=== PATIENT | male | born 1950 | race Caucasian/White ===

== ENCOUNTER 2024-02-03 12:34 | Outpatient (REF) | payer MEDICARE, SELFPAY | END 2024-02-03 12:35 | disposition home or self-care (01) | LOC: HO.BBR 12:34 | PROVIDERS: PCP Internal Medicine; Visit Provider Internal Medicine Gastroenterology | DX: Z13.89 Encounter for screening for other disorder (principal) ==

== ENCOUNTER 2024-04-30 13:21 | Outpatient (REF) | payer MEDICARE, SELFPAY | END 2024-04-30 13:22 | disposition home or self-care (01) | LOC: HO.BBR 13:21 | PROVIDERS: PCP Internal Medicine; Visit Provider Internal Medicine Gastroenterology | DX: Z13.89 Encounter for screening for other disorder (principal) ==

== ENCOUNTER 2024-07-31 14:26 | Outpatient (REF) | payer MEDICARE, SELFPAY | END 2024-07-31 14:27 | disposition home or self-care (01) | LOC: HO.BBR 14:26 | PROVIDERS: PCP Internal Medicine; Visit Provider Internal Medicine Gastroenterology | DX: Z13.89 Encounter for screening for other disorder (principal) ==

== ENCOUNTER 2024-10-28 13:00 | Outpatient (AMB) | payer MEDICARE, SELFPAY ==
--- NOTE | 2024-10-28 13:28 | MHC.OFFWIV ---
Intake Vital Signs 10/28/24 13:30 Weight 190 lb BP 130/82 Blood Pressure Location Rt brachial Position Sitting Pulse 66 Pulse Source Pulse Oximeter Pulse Oximetry (%) 98 Oxygen Delivery Method Room Air Intake Visit Reasons: [employer] SOB & abdominal pain Intake Note: Patient here for SOB that has been present for about 1 month Patient Tobacco Use Status: Never used Tobacco Allergies chlorpromazine [From THORAZINE] Allergy (Unknown, Unverified 10/28/24 13:29) UNKNOWN Do you need a note to return to daycare/school/sports/work: No HPI HPI Comments History of Present Illness Details History of Present Illness - The patient is a 73-year-old male presenting with shortness of breath and abdominal enlargement. 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 - He reports persistent abdominal fullness and bloating independent of food intake, with no prior drainage/paracentesis procedures. - The large umbilical hernia, while not painful, coincides with significant discomfort and an abdominal distension visible to an observer. - No past instances of paracentesis for fluid drainage have been reported. -Denies any fevers or respiratory symptoms. Physical Exam General: Cooperative, healthy appearing, comfortable, no acute distress and well developed Orientation: Patient oriented x3 Limitations: No limitations Head: Normal to inspection Ears: Hearing grossly normal bilaterally Nose: Normal external nose present Face and sinus: Normal facial exam Eyes: Appearance normal, both eyes and all related structures Neck: Normal visual inspection and Yes full ROM Respiratory: Normal respiratory effort and able to speak in complete sentences. Clear to auscultation bilaterally Cardiovascular: Regular rate and rhythm. Normal S1 and S2 GI: see below Skin: No rashes or lesions noted Neuro: Patient oriented x3 Extremities: Normal to inspection [facility] Social History Patient Tobacco Use Status: Never used Tobacco Review of Systems Const All systems reviewed & are unremarkable except as noted in HPI and below Physical Exam Vital Signs: Last Vital Signs Pulse 66 10/28/24 13:30 BP 130/82 10/28/24 13:30 Pulse Ox 98 10/28/24 13:30 Oxygen Delivery Method Room Air 10/28/24 13:30 GI Other: large umbilical hernia, non TTP Inspection: Yes distended Palpation (GI): Ascites present Percussion: Yes Fluid wave present Assessment & Plan Assessment & Plan (1) Abdominal ascites: Code(s): R18.8 - Other ascites Qualifiers: Ascites type: other type Qualified Code(s): R18.8 - Other ascites Plan: VSS, pt well appearing. PE remarkable for clear lungs, large abdomen with + fluid wave & large umbilical hernia which is non ttp. Paracentesis is likely neede to manage the patient's symptomatic ascites and alleviate the associated shortness of breath due to increased abdominal pressure on the thoracic cavity. Immediate evaluation in an emergency department setting is recommended to ensure safe and effective fluid drainage, with measures in place to assess for possible infection and address complications such as variations in blood pressure through albumin administration. Explained all of this to the patient and his . Called [facility] ED with expect. His will drive him to the ED. Patient was informed and verbally consented to the use of an ambient scribe for clinic note documentation during this visit. Coding Level of Care Code New Pt Level 5 (51234) Diagnoses Other ascites R18.8 Ascites type: other type
[2024-10-28 13:30] VITALS: BP 130/82; PULSE 66; O2SAT 98
--- OUTSIDE RECORDS SUMMARY | 2024-10-28 14:20 | XMS_ITS | Encounter Summary ---
Author Organization [facility] Address [address] [place] [address] Care Team Providers Care Sanitation Supervisor Name Role Phone Lou Jolley MD Primary Care Provider [phone] Encounter Details Date Type Department Care Team (Late Contact Info) Description 10/12/2024 Telephone Gastroenterology - [address] [facility] [address] [place] [phone] Katie Baker PA [address] [place] [address] Social History Tobacco Use Types Packs/Day Years Used Date Smoking Tobacco: Never Alcohol Use Standard Drinks/Week Comments Not Currently 0 (1 standard drink = 0.6 oz pur e alcohol) Sex and Gender Information Value Date Recorded Sex Assigned at Male 10/09/2024 1:17 PM EST Legal Sex Male 11:33 PM EST Gender Identity Male 10/09/2024 1:17 PM EST Sexual Orientation Choose not to disclose 2024 1:17 PM EST documented as of this encounter Progress Notes * PIERRE Trinh - 10/12/2024 4:30 PM EST Spoke with pt. Labs stable. Just waiting on TSH result. Pt has CT booked as well as colon/egd. documented in this encounter Plan of Treatment Upcoming Encounters Date Type Department Care Team (Late Contact Info) Description 10/30/2024 9:00 AM EST Appointment [facility] [address] Scan [address] [place] [address] documented as of this encounter Visit Diagnoses Not on filedocumented in this encounter Care Teams Sanitation Supervisor Relationship Specialty Start Date End Date Lou Jolley MD [address] [address] PCP - General Internal Medicine 09/24/24 documented as of this encounter
--- OUTSIDE RECORDS SUMMARY | 2024-10-28 14:20 | XMS_ITS | Continuity of Care Document ---
Author Name [facility] Organization [facility] Care Team Providers Care Design Agent Name Role Phone [facility] Unavailable Unavailable Problems Combined list of problems from Department of [facility] and [facility] facilities. It does not include entries that were removed or entered in error. Problem Status Onset Date Problem Type Date of Resolution Comments Source Anxiety ([facility] [id number]) Active Condition JUDA Benign enlargement of prostate Active Condition JUDA Cataract Active Condition Jun 14 Entered By: JIMI MANNING Comment: s/p extraction JUDA Cirrhosis of liver Active Condition [facility] Essential hypertension Active Condition JUDA Familial hemochromatosis Active Condition [facility] GERD - Gastro-Esophageal Reflux Disease ([facility] [id number]) Active Condition JUDA Hearing loss Active Condition [facility] Medications Combined list of outpatient medications from Department of Defense and [facility] facilities.Medications provided include 1) outpatient medications from the last 15 months, and 2) patient-reported medications. Medication Details Route Status Patient Instructions Prescription Expires Prescription Number Last Dispense Date Ordering Provider Order Date Order Qty Source AMLODIPINE BESYLATE 2.5MG TAB TAKE ONE TABLET BY MOUTH ONCE DAILY ORAL ACTIVE BRENDA MANNING 2021 [place] CHOLECALCIF SANTANA 50MCG (2,000UNIT) TAB TAKE ONE TABLET BY MOUTH ONCE DAILY ORAL ACTIVE BRENDA MANNING 2021 [place] FISH OIL (NO NEW STARTS - ON BACKORDER) CAP,ORAL TAKE 1200MG BY MOUTH ONCE DAILY ORAL ACTIVE BRENDA MANNING 2021 [place] LORAZEPAM 0.5MG TAB TAKE ONE TABLET BY MOUTH PRN ORAL ACTIVE BRENDA MANNING 2021 [place] MULTIVITAMI NS W/MINERALS TAB TAKE ONE TABLET BY MOUTH ONCE DAILY ORAL ACTIVE BRENDA MANNING 2021 [place] NADOLOL 40MG TAB TAKE ONE TABLET BY MOUTH ONCE DAILY ORAL ACTIVE BRENDA MANNING 09/29/ 2022 [place] OMEPRAZOLE 20MG CAP,EC TAKE 1 CAPSULE BY MOUTH EVERY MORNING 30 MINUTES BEFORE BREAKFAS T ORAL ACTIVE BRENDA MANNING 2021 [place] OTHER CAP/TAB TAKE ALLERGY RELIEF BY MOUTH ONCE DAILY NEEDED ORAL ACTIVE BRENDA MANNING 2021 [place] TAMSULOSIN HCL 0.4MG CAP TAKE 1 CAPSULE BY MOUTH ONCE DAILY ORAL ACTIVE BRENDA MANNING 2021 [place] TROSPIUM CL 20MG TAB TAKE THREE TABLETS BY MOUTH ONCE DAILY ORAL ACTIVE BRENDA MANNING 2021 IELD Allergies, Adverse Reactions, Alerts Combined list of allergies from Department of Defense and Veterans Affairs facilities. It does not include entries that were removed or entered in error. Substance Category Reaction Severity Reaction type Status Date Reported Comments Source CHLORPROMAZI NE Propensity to adverse reactions to drug (finding) Tachycardia active [facility] [place] [facility] Immunizations Combined list of available immunizations from the Department of Defense and Veterans Affairs facilities. Immunization Series Date Given Administered By Site Reaction Lot Number CVX Code Drug Restaurant Bartender Status Comments Source INFLUENZA, UNSPECIFIED FORMULATION 2021 88 complet ed [facility] COVID-19 (MODERNA), MRNA, LNP-S, PF, 100 MCG/0.5ML DOSE OR 50 MCG/0.25ML DOSE 3 2021 207 complet ed [facility] ZOSTER RECOMBINANT 2 2021 187 complet ed Records [facility] scan[facility] COVID-19 (MODERNA), MRNA, LNP-S, PF, 100 MCG/0.5ML DOSE OR 50 MCG/0.25ML DOSE 3 2020 207 complet ed [facility] COVID-19 (MODERNA), MRNA, LNP-S, PF, 100 MCG/0.5ML DOSE OR 50 MCG/0.25ML DOSE 2 2020 207 complet ed [facility] COVID-19 (MODERNA), MRNA, LNP-S, PF, 100 MCG/0.5ML DOSE OR 50 MCG/0.25ML DOSE 1 2020 207 complet ed [facility] [place] [facility] PNEUMOCOCCAL CONJUGATE PCV 13 2019 133 complet ed sent to scan through [facility] [place] [facility] TDAP 2014 115 complet ed Records sent to scan through [facility] [place] [facility] ZOSTER RECOMBINANT 1 2014 187 complet ed Records sent to scan via [facility] [place] [facility] Social History Combined list of available smoking, tobacco, and other social history from Department of Defense and Veterans Affairs facilities. Social History Type Response Date Comment Sourc e Tobacco smoking status [facility]-TOBACCO NEVER USED 06/11/2022 [facility] [place] [facility] Advance Directives List of completed, amended, or rescinded Advance Directives on record at Department of Veterans Affairs facilities. An actual copy of the Directive is not included. Date Advance Directive Provider Source 06/08/2022 ADVANCE DIRECTIVE JUAN C MUÑOZ [facility]
--- OUTSIDE RECORDS SUMMARY | 2024-10-28 14:20 | XMS_ITS | Encounter Summary ---
Author Organization [facility] Address [address] [place] [address] Care Team Providers Care Academic Hospitalist Name Role Phone Lou Jolley MD Primary Care Provider [phone] Reason for Visit * Reason Comments Nausea Umbilical hernia pt states cause nausea vomiting Vomiting Encounter Details Date Type Department Care Team ([facility] st Contact Info) Description 09/28/2024 2:20 PM EST Office Visit Gastroenterology - [address] [facility] [address] [place] [address] Katie Baker PA [address] [place] [address] Umbilical hernia without obstruction and without gangrene (Primary Dx) Social History Tobacco Use Types Packs/Day Years Used Date Smoking Tobacco: Never Tobacco Cessation:Counseling Given: Not Answered Alcohol Use Standard Drinks/Week Comments Not Currently 0 (1 standard drink = 0.6 oz pur e alcohol) Sex and Gender Information Value Date Recorded Sex Assigned at Male 10/09/2024 1:17 PM EST Legal Sex Male 11:33 PM EST Gender Identity Male 10/09/2024 1:17 PM EST Sexual Orientation Choose not to disclose 2024 1:17 PM EST documented as of this encounter Last Filed Vital Signs Vital Sign Reading Time Taken Comments Blood Pressure - - Pulse - - Temperature - - Respiratory Rate - - Oxygen Saturation - - Inhaled Oxygen Concentration - - Weight 86.2 kg (190 lb) 09/28/2024 2:10 PM EST Height 182.9 cm (6') 09/28/2024 2:10 PM EST Body Mass Index 25.77 09/28/2024 2:10 PM EST documented in this encounter Progress Notes * PIERRE Trinh - 09/28/2024 2:20 PM EST Subjective Last Colononscopy/EGD: EGD 06/2024 - grade 1 varices in lower third of esoph (1 yr); Colon/EGD 10/2019 - 2 cords of 1-2+ varices in lower third of esoph, port hypertensive gastropathy; TA x2, tics throughout (5 yrs) HPI: Ryder Thornton is a 73 y.o. old male who presents to the gastroenterology department today for his umbilical hernia. The the umbilical hernia seems to be getting bigger. It is not painful. He has been exercising at the gym more. It is reducible. He had a stomachache last week that onlylasted 1 day. He went to the bathroom more often that day although he did not have diarrhea. He wonders if it was a virus. His weight is stable. He has ongoing issues with nausea. It is mostly in themorning and only lasts an hour or 2. He denied any rectal bleeding, melena, lower extremity edema, fevers or chills. He had his routine abdominal ultrasound in May due to his history of cirrhosi s. It was stable. He also had his surveillance upper endoscopy with Dr. Carlson in June due to his history of varices. Grade 1 varices were found in the lower esophagus. He had mild portal mild portal hypertensive gastropathy findings. He will be due to follow up with Dr. Carlson in December. He was here today just to discuss the hernia. Review of Systems Constitutional: Negative. Respiratory: Negative. Cardiovascular: Negative. Gastrointestinal: Positive for nausea. Umbilical hernia Genitourinary: Negative. 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 PAST SURGICAL HISTORY: No past surgical history on file. SOCIAL HISTORY: Social History Tobacco Use Smoking status: Never Smokeless tobacco: Not on file Substance Use Topics Alcohol use: Not Currently FAMILY HISTORY: No family history on file. ACTIVE MEDICATIONS: Current Outpatient Medications Medication Sig Dispense Refill amLODIPine (NORVASC) 2.5 mg tablet Take 1 tablet (2.5 mg total) by mouth 1 (one) time each day. atorvastatin (LIPITOR) 20 mg tablet Take 1 tablet (20 mg total) by mouth 1 (one) time each day. cholecalciferol (VITAMIN D-3) 25 mcg (1,000 unit) tablet Take 1 tablet (1,000 Units total) by mouth1 (one) time each day. meloxicam (MOBIC) 7.5 mg tablet Take 1 tablet (7.5 mg total) by mouth 1 (one) time each day. nadoloL (CORGARD) 40 mg tablet Take 1 tablet (40 mg total) by mouth 1 (one) time each day. omeprazole (PriLOSEC) [address] capsule tamsulosin (FLOMAX) 0.4 mg 24 hr capsule Take 1 capsule (0.4 mg total) by mouth 1 (one) time each day. trospium 60 mg capsule,extended release 24hr Take 1 capsule (60 mg total) by mouth 1 (one) time each day. No current facility-administered medications for this visit. ALLERGIES: Allergies Allergen Reactions Clomipramine Physical Exam Constitutional: Appearance: Normal appearance. HENT: Head: Normocephalic. Cardiovascular: Rate and Rhythm: Normal rate and regular rhythm. Pulmonary: Effort: Pulmonary effort is normal. Breath sounds: Normal breath sounds. Abdominal: General: Bowel sounds are normal. There is no distension. Palpations: Abdomen is soft. There is no mass. Tenderness: There is no abdominal tenderness. There is no guarding or rebound. Comments: Non-tender, Medium sized reducible umbilical hernia. Musculoskeletal: Right lower leg: No edema. Left lower leg: No edema. Skin: General: Skin is warm. Neurological: Mental Status: He is alert and oriented to person, place, and time. Psychiatric: Mood and Affect: Mood normal. Behavior: Behavior normal. IMPRESSION: 1. Umbilical hernia without obstruction and without gangrene Assessment/Plan Assessment & Plan Umbilical hernia without obstruction and without gangrene Hold on surgical consult as hernia is reducible and not painful. Pt agrees. Avoid heavy lifting. Try a truss, especially at the gym. Routine f/u for cirrhosis due in December U/S, labs, EGD up to date. PIERRE Trinh 4:13 PM EST documented in this encounter Plan of Treatment Upcoming Encounters Date Type Department Care Team (Late st Contact Info) Description 10/30/2024 9:00 AM EST Appointment [facility] CT Scan [address] [place] [address] documented as of this encounter Visit Diagnoses Diagnosis Umbilical hernia without obstruction and without gangrene- Primary documented in this encounter Historical Medications * This list may reflect changes made after this encounter. cholecalciferol (VITAMIN D-3) 25 mcg (1,000 unit) tablet Take 1 tablet (1,000 Units total) by mouth 1 (one) time each day. amLODIPine (NORVASC) 2.5 mg tablet Take 1 tablet (2.5 mg total) by mouth 1 (one) time each day. 09/05/2024 atorvastatin (LIPITOR) 20 mg tablet Take 1 tablet (20 mg total) by mouth 1 (one) time each day. 03/30/2024 meloxicam (MOBIC) 7.5 mg tablet Take 1 tablet (7.5 mg total) by mouth 1 (one) time each day. 09/15/2024 nadoloL (CORGARD) 40 mg tablet Take 1 tablet (40 mg total) by mouth 1 (one) time each day. 07/27/2024 tamsulosin (FLOMAX) 0.4 mg 24 hr capsule Take 1 capsule (0.4 mg total) by mouth 1 (one) time each day. 08/18/2024 trospium 60 mg capsule,extended release 24hr Take 1 capsule (60 mg total) by mouth 1 (one) time each day. 08/02/2024 omeprazole (PriLOSEC) [address] capsule 09/24/2024 10/23/2024 added in this encounter Care Teams Academic Hospitalist Relationship Specialty Start Date End Date Lou Jolley MD [address] [facility] [address] [place] [id number] PCP - General Internal Medicine 09/24/24 documented as of this encounter
--- OUTSIDE RECORDS SUMMARY | 2024-10-28 14:20 | XMS_ITS | Encounter Summary ---
Author Organization [facility] Address [address] [place] [address] Care Team Providers Care Machine Riveter Name Role Phone Lou Jolley MD Primary Care Provider [phone] Reason for Referral * Imaging (Routine) - Pending Review Specialty Diagnoses / Procedures Referred By Ubaldo schafer Referred To Contact Radiology Diagnoses Nausea and vomiting, unspecified vomiting type Umbilical hernia without obstruction and without gangrene Lack of appetite Other cirrhosis of liver (CMS/HCC) Hereditary hemochromatosis (CMS/HCC) Procedures CT Abdomen Pelvis w Contrast Katie Baker PA [address] [address] Phone: tel: fax: [address] [address] Phone: tel: Referral ID Status Reason Start Date Expiration Date V isits Requested Visits Authorized [id number] Pending Review 10/05/2024 10/05/2025 1 1 Encounter Details Date Type Department Care Team (Late st Contact Info) Description 10/05/2024 Telephone Gastroenterology - [address] [phone] Katie Baker PA [address] [address] Social History Tobacco Use Types Packs/Day Years [...] encounter Progress Notes * PIERRE Trinh - 10/05/2024 8:19 AM EST I called pt after his niece reached out to me (personal cell phone) regarding pt's appointment lastweek. She feels he was not forthcoming with how badly he has been feeling and blamed symptoms on the umbilical hernia. Per pt, nausea in am and intermittent dry heaves. Poor appetite. Wt stable per review of chart at least to 03/2023. 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 No bleeding,melena. Pt due for colonoscopy now. I realized that after his last visit. He is due for hepatoma screening in December. Will arrange labs now and order abd/pelvic CT due to symptoms and to evaluate hernia. Will schedule colon repeat EGD. Colonoscopy and EGD reviewed with patient. Risks discussed including bleeding perforation and missed lesions. There is always a chance surgery or transfusion could be required. Prep discussed with patient. Risks of anesthesia reviewed. Patient advised will need a ride home, not to have liquids for at least 3 hours prior to the procedure. documented in this encounter Plan of Treatment Upcoming Encounters Date Type Department Care Team (Late st Contact Info) Description 10/30/2024 9:00 AM EST Appointment [facility] CT Scan [address] [place] [address] Scheduled Orders Name Type Priority Associated Diagnoses Orde r Schedule CT Abdomen Pelvis w Contrast Imaging Routine Nausea and vomiting, unspecified vomiting type Umbilical hernia without obstruction and without gangrene Lack of appetite Other cirrhosis of liver (CMS/HCC) Hereditary hemochromatosis (CMS/HCC) 1 Occurrences starting 10/05/2024 until 12/03/2024 documented as of this encounter Results * Prothrombin time with INR (10/12/2024 11:16 AM EST) [facility] Protime 13.6 10.6 - 13.9 sec LAB COAGULATION METHOD 10/12/2024 1:11 PM EST [facility] INR 1.1 LAB COAGULATION METHOD 10/12/2024 1:11 PM EST [facility] Blood Venous blood specimen / Unknown Venipuncture / Unknown 10/12/2024 11:16 AM EST 10/12/2024 12:53 PM EST Katie JAY LAB BLOOD ORDERABLES Final R esult Performing Organization Address City/[facility]/ZIP Co de Phone Number [facility] [address] [place] [address], [place] [phone] * Alpha fetoprotein tumor marker (10/12/2024 11:16 AM EST) [facility] AFP <2.5 0.0 - 8.0 ng/mL LAB CHEMISTRY METHOD 10/12/2024 3:56 PM EST [facility] Blood Venous blood specimen / Unknown Venipuncture / Unknown 10/12/2024 11:16 AM EST 10/12/2024 12:50 PM EST Narrative [facility] - 10/12/2024 3:56 PM EST The Siemens Advia Centaur Chemiluminescent Immunoassay is used. Results obtained with different assay methods or kits cannot be used interchangeably. Results cannot be interpreted as absolute evidence of the presence or absence of malignant disease. Katie JAY LAB BLOOD ORDERABLES Final R esult [facility] [address] [place] [address], [place] [phone] * Thyroid stimulating immunoglobulin (10/12/2024 11:16 AM EST) [facility] Thyroid Stimulating Immunoglobulin <0.10 <0.10 IU/L 10/15/2024 3:22 PM EST [facility] Comment: Thyroid stimulating immunoglobulins (TSI) concentrations greater than or equal to (>=) 0.55 IU/L have a clinical sensitivity of at least 98.6%, and a clinical specificity of at least 98.5%, for the differential diagnosis of Graves' Disease. TSI concentrations for patients with other thyroid or autoimmune diseases range from 0.11 to 0.39 IU/L. Test performed at [facility], [address] , [place], [place] ??[address] ? [phone] Carolynn Mckeon MD, PhD - [employer] Blood Venous blood specimen / Unknown Venipuncture / Unknown 10/12/2024 11:16 AM EST 10/12/2024 12:50 PM EST Katie JAY LAB BLOOD ORDERABLES Final R esult [facility] [address] [place] [address] * Amylase (10/12/2024 11:16 AM EST) Amylase 31 25 - 115 unit/L LAB CHEMISTRY METHOD 10/12/2024 3:47 PM EST [facility] Blood Venous blood specimen / Unknown Venipuncture / Unknown 10/12/2024 11:16 AM EST 10/12/2024 12:50 PM EST Katie JAY LAB BLOOD ORDERABLES Final R esult [facility] [address] [place] [address], [place] [phone] * Lipase (10/12/2024 11:16 AM EST) Lipase 24 13 - 75 unit/L LAB CHEMISTRY METHOD 10/12/2024 3:47 PM EST [facility] Blood Venous blood specimen / Unknown Venipuncture / Unknown 10/12/2024 11:16 AM EST 10/12/2024 12:50 PM EST us Katie JAY LAB BLOOD ORDERABLES Final R esult [facility] [address] [place] [address], * (ABNORMAL) Comprehensive metabolic panel (10/12/2024 11:16 AM EST) Sodium 139 133 - 145 mmol/L LAB CHEMISTRY METHOD 10/12/2024 3:48 PM [facility] Potassium 3.5 3.5 - 5.5 mmol/L LAB CHEMISTRY METHOD 10/12/2024 3:48 PM [facility] Chloride 103 96 - 110 mmol/L LAB CHEMISTRY METHOD 10/12/2024 3:48 PM [facility] CO2 31 21 - 32 mmol/L LAB CHEMISTRY METHOD 10/12/2024 3:48 PM [facility] Anion Gap 5 3 - 11 LAB CHEMISTRY METHOD 10/12/2024 3:48 PM [facility] Glucose 117(H) 70 - 100 mg/dL LAB CHEMISTRY METHOD 10/12/2024 3:48 PM [facility] BUN 11 5 - 25 mg/dL LAB CHEMISTRY METHOD 10/12/2024 3:48 PM [facility] Creatinine 0.77 0.70 - 1.30 mg/dL LAB CHEMISTRY METHOD 10/12/2024 3:48 PM [facility] eGFR 96 >=60 mL/min/1. 73m2 LAB CHEMISTRY METHOD 10/12/2024 3:48 PM [facility] Comment:Calculation based on the??Chronic Kidney Disease Epidemiology Collaboration (CKD-EPI) equation refit??without adjustment for race. BUN/Creatinine Ratio 14.3 LAB CHEMISTRY METHOD 10/12/2024 3:48 PM [facility] Calcium 8.8 8.5 - 10.5 mg/dL LAB CHEMISTRY METHOD 10/12/2024 3:48 PM [facility] AST (SGOT) 21 10 - 42 unit/L LAB CHEMISTRY METHOD 10/12/2024 3:48 PM [facility] ALT (SGPT) 21 10 - 60 unit/L LAB CHEMISTRY METHOD 10/12/2024 3:48 PM [facility] Alkaline Phosphatase 130(H) 42 - 121 unit/L LAB CHEMISTRY METHOD 10/12/2024 3:48 PM [facility] Total Protein 7.3 6.0 - 8.0 g/dL LAB CHEMISTRY METHOD 10/12/2024 3:48 PM [facility] Albumin 3.0(L) 3.2 - 5.0 g/dL LAB CHEMISTRY METHOD 10/12/2024 3:48 PM [facility] Total Bilirubin 0.8 0.0 - 1.4 mg/dL LAB CHEMISTRY METHOD 10/12/2024 3:48 PM [facility] Blood Venous blood specimen / Unknown Venipuncture / Unknown 10/12/2024 11:16 AM EST 10/12/2024 12:50 PM EST Katie JAY LAB BLOOD ORDERABLES Final R esult [facility] [address] [place] [address], documented in this encounter Visit Diagnoses Diagnosis Nausea and vomiting, unspecified vomiting type- Primary Umbilical hernia without obstruction and without gangrene Lack of appetite Anorexia Other cirrhosis of liver (CMS/HCC) Hereditary hemochromatosis (CMS/HCC) Hereditary hemochromatosis documented in this encounter Orders Lab Orders Without Results Count Last Ordered D ate First Ordered Date HEPATIC FUNCTION PANEL 1 10/05/2024 IRON WITH TIBC AND FERRITIN 1 10/05/2024 documented in this encounter Care Teams Machine Riveter Relationship Specialty Start Date End Date Lou Jolley MD [address] [place] [address] PCP - General Internal Medicine 09/24/24 documented as of this encounter
--- OUTSIDE RECORDS SUMMARY | 2024-10-28 14:20 | XMS_ITS | Encounter Summary ---
Author Organization [facility] Address [address] [place] [address] Care Team Providers Care Scrap Wheeler Name Role Phone Lou Jolley MD Primary Care Provider [phone] Reason for Referral * Hospital - Outpatient (Routine) - Closed Specialty Diagnoses / Procedures Referred By Contac t Referred To Contact Gastroenterology Diagnoses Nausea and vomiting, unspecified vomiting type History of colon polyps Hx of esophageal varices Procedures COLONOSCOPY Anesthesia - MAC; [facility] Wilbert Carlson MD [address] [address] Phone: tel: fax: [facility] Endoscopy [address] [place] [address] Phone: tel: Referral ID Status Reason Start Date Expiration Date Visits Re quested Visits Authorized [id number] Closed 10/05/2024 10/05/2025 1 1 * Hospital - Outpatient (Routine) - Closed Specialty Diagnoses / Procedures Referred By Contac t Referred To Contact Gastroenterology Diagnoses Nausea and vomiting, unspecified vomiting type History of colon polyps Hx of esophageal varices Procedures EGD Anesthesia - MAC; [facility] Wilbert Carlson MD [address] [address] Phone: tel: fax: [facility] Endoscopy [address] [place] [address] Phone: tel: Referral ID Status Reason Start Date Expiration Date Visits Re quested Visits Authorized [id number] Closed 10/05/2024 10/05/2025 1 1 Reason for Visit * Hospital - Outpatient (Routine) - Closed Specialty Diagnoses / Procedures Referred By Contac t Referred To Contact Gastroenterology Diagnoses Nausea and vomiting, unspecified vomiting type History of colon polyps Hx of esophageal varices Procedures COLONOSCOPY Anesthesia - MAC; [facility] Wilbert Carlson MD [address] [address] Phone: tel: fax: [facility] Endoscopy [address] [place] [address] Phone: tel: Referral ID Status Reason Start Date Expiration Date Visits Re quested Visits Authorized [id number] Closed 10/05/2024 10/05/2025 1 1 Encounter Details Date Type Department Care Team (Latest Contact Info) Description 10/19/2024 9:49 AM EST - 10/19/2024 11:59 PM EST Hospital Encounter [facility] Endoscopy [address] [place] [phone] Wilbert Carlson MD [address] [address] Boby Villalba, [address] [address] Nausea and vomiting, unspecified vomiting type; History of colon polyps; Hx of esophageal varices Discharge Disposition: Home or Self Care Social History Tobacco Use Types Packs/Day Years Used Date Smoking Tobacco: Never Alcohol Use Standard Drinks/Week Comments Not Currently 0 (1 standard drink = 0.6 oz pur e alcohol) Interpersonal Safety Answer Date Record ed Physical Abuse 10/19/2024 Verbal Abuse 10/19/2024 Sex and Gender Information Value Date Recorded Sex Assigned at Male 10/09/2024 1:17 PM EST Legal Sex Male 11:33 PM EST Gender Identity Male 10/09/2024 1:17 PM EST Sexual Orientation Choose not to disclose 2024 1:17 PM EST documented as of this encounter Last Filed Vital Signs Vital Sign Reading Time Taken Comments Blood Pressure 130/87 10/19/2024 11:41 AM EST Pulse 67 10/19/2024 11:41 AM EST Temperature 36.4 ??C (97.6 ??F) 10/19/2024 11:[address] Respiratory Rate 18 10/19/2024 11:41 AM EST Oxygen Saturation 96% 10/19/2024 11:41 AM EST Inhaled Oxygen Concentration - - Weight 86.2 kg (190 lb) 10/19/2024 10:15 AM EST Height 182.9 cm (6') 10/19/2024 10:15 AM EST Body Mass Index 25.77 10/19/2024 10:15 AM EST documented in this encounter Discharge Instructions * Attachments The following attachments cannot be sent through Care Everywhere. * EGD (Upper Endoscopy): Post-op (Maldivian) * Colon Polyps (Maldivian) * Diverticulosis (Maldivian) documented in this encounter Medications at Time of Discharge amLODIPine (NORVASC) 2.5 mg tablet Take 1 tablet (2.5 mg total) by mouth 1 (one) time each day. 09/05/2024 atorvastatin (LIPITOR) 20 mg tablet Take 1 tablet (20 mg total) by mouth 1 (one) time each day. 03/30/2024 cholecalciferol (VITAMIN D-3) 25 mcg (1,000 unit) tablet Take 1 tablet (1,000 Units total) by mouth 1 (one) time each day. meloxicam (MOBIC) 7.5 [...] (PriLOSEC) [address] capsule 09/24/2024 10/23/2024 documented as of this encounter Discharge Disposition Disposition Code Departure Means Destination Home or Self Care documented in this encounter Progress Notes * Reynaldo Lawrence RN - 10/19/2024 11:21 AM EST Dx for upper - portal gastropathy and grade 1 esopageal varices * Reynaldo Lawrence RN - 10/19/2024 11:17 AM EST Upper starts now * Reynaldo Lawrence RN - 10/19/2024 11:15 AM EST Lower done at 1113. Dx - diverticulosis and 2 polyps * Mildred Salinas RN - 10/19/2024 11:00 AM EST Problem: Cognitive:Periop Procedure - Minor Goal: Knowledge of disease or condition will improve Outcome: Adequate for Discharge Problem: Sensory:Periop Procedure - Minor Goal: Demonstrates/reports adequate pain control Outcome: Adequate for Discharge Problem: Coping:Periop Procedure - Minor Goal: Verbalizations of alleviation of anxiety will increase Outcome: Adequate for Discharge * Reynaldo Lawrence RN - 10/19/2024 10:59 AM EST Scope number [id number] * Mireya Fuentes RN - 10/19/2024 10:06 AM EST Problem: Cognitive:Periop Procedure - Minor Goal: Knowledge of disease or condition will improve Outcome: Progressing Problem: Sensory:Periop Procedure - Minor Goal: Demonstrates/reports adequate pain control Outcome: Progressing Problem: Coping:Periop Procedure - Minor Goal: Verbalizations of alleviation of anxiety will increase Outcome: Progressing Pt understands discharge instructions denies pain documented in this encounter H&P Notes * Wilbert Carlson MD - 10/19/2024 11:00 AM EST No change Source Note - PIERRE Trinh - 09/28/2024 2:20 PM EST [...] 4:13 PM EST documented in this encounter Procedure Notes * Mildred Salinas RN - 10/19/2024 11:40 AM EST Patient tolerated fluids and snacks wel Pt. Meets criteria for discharge. documented in this encounter Plan of Treatment Upcoming Encounters Date Type Department Care Team (Late st Contact Info) Description 10/30/2024 9:00 AM EST Appointment [facility] CT Scan [address] [place] [address] documented as of this encounter Procedures Procedure Name Priority Date/Time Associated Diagnosis Comments COLONOSCOPY Routine 10/19/2024 11:20 AM EST Nausea and vomiting, unspecified vomiting type History of colon polyps Hx of esophageal varices EGD Routine 10/19/2024 11:20 AM EST Nausea and vomiting, unspecified vomiting type History of colon polyps Hx of esophageal varices TISSUE EXAM Routine 10/19/2024 11:07 AM EST Nausea and vomiting, unspecified vomiting type History of colon polyps Hx of esophageal varices documented in this encounter Results * COLONOSCOPY Anesthesia - MAC; [facility] (10/19/2024 11:20 AM EST) Anatomical Region Laterality Modality Endoscopy 10/19/2024 10:5 8 AM EST Impressions 10/19/2024 11:24 AM EST - One 5 mm polyp in the transverse colon, removed with ? a cold snare. Resected and retrieved. ? - One 3 mm polyp in the cecum, removed with a jumbo ? cold forceps. Resected and retrieved. ? - Diverticulosis in the entire examined colon. ? - Congested mucosa in the entire examined colon. Recommendation: ?- Patient has a contact number available for ? emergencies. The signs and symptoms of potential ? delayed complications were discussed with the patient. ? Return to normal activities tomorrow. Written ? discharge instructions were provided to the patient. ? - Resume previous diet. ? - Continue present medications. ? - Await pathology results. Narrative 10/19/2024 11:24 AM EST [facility] GI Patient Name: Ryder Thornton Procedure Date: 10/19/2024 10:58 AM Date of : 1950 Age: 73 Gender: Male Note Status: Finalized Attending MD: Wilbert Carlson MD, Procedure Date No Time: 10/19/2024 Procedure: ? Colonoscopy Indications: ? High risk colon cancer surveillance: Personal history ? of colonic polyps Providers: ? Wilbert Carlson MD Referring MD: ?Wilbert Carlson MD Medicines: ? Monitored Anesthesia Care Complications: ? No immediate complications. Estimated Blood Loss: ? Estimated blood loss was minimal. Procedure: ? After I obtained informed consent, the scope was ? passed under direct vision. Throughout the procedure, ? the patient's blood pressure, pulse, and oxygen ? saturations were monitored continuously.The ? Colonoscope was introduced through the anus and ? advanced to the cecum, identified by appendiceal ? orifice and ileocecal valve. The colonoscopy was ? performed without difficulty. The patient tolerated ? the procedure well. The quality of the bowel ? preparation was adequate. Findings: ?A 5 mm polyp was found in the transverse colon. The ? polyp was sessile. The polyp was removed with a cold ? snare. Resection and retrieval were complete. ? A 3 mm polyp was found in the cecum. The polyp was ? sessile. The polyp was removed with a jumbo cold ? forceps. Resection and retrieval were complete. ? Many small and large-mouthed diverticula were found in ? the entire colon. ? An area of moderately congested mucosa was found in ? the entire colon. More pronounced in left colon. Procedure Code(s): ? --- Professional --- ? 47230, Colonoscopy, flexible; with removal of ? tumor(s), polyp(s), or other lesion(s) by snare ? technique ? 48357, 59, Colonoscopy, flexible; with biopsy, single ? or multiple Diagnosis Code(s): ? --- Professional --- ? Z86.010, Personal history of colonic polyps ? D12.3, Benign neoplasm of transverse colon (hepatic ? flexure or splenic flexure) ? D12.0, Benign neoplasm of cecum ? K63.89, Other specified diseases of intestine ? K57.30, Diverticulosis of large intestine without ? perforation or abscess without bleeding CPT copyright 2020 [employer]. All rights reserved. The codes documented in this report are preliminary and upon willow machine operator review may be revised to meet current compliance requirements. MD Wilbert Kern MD 10/19/2024 11:24:22 AM This report has been signed electronically.Wilbert Carlson MD Number of Addenda: 0 Note Initiated On: 10/19/2024 10:58 AM Scope In: Scope Out: ? Endoscopy Department at [facility] - [address] [place] [address], ? [place] [address] Procedure Note Wilbert Carlson MD - 10/19/2024 [facility] GI Patient Name: Ryder Thornton Procedure Date: 10/19/2024 10:58 AM Date of : 1950 Age: 73 Gender: Male Note Status: Finalized Attending MD: Wilbert Carlson MD, Procedure Date No Time: 10/19/2024 Procedure: Colonoscopy Indications: High risk colon cancer surveillance: Personalhistory of colonic polyps Providers: Wilbert Carlson MD Referring MD: Wilbert Carlson MD Medicines: Monitored Anesthesia Care Complications: No immediate complications. Estimated Blood Loss: Estimated blood loss was minimal. Procedure: After I obtained informed consent, the scope was passed under direct vision. Throughout theprocedure, the patient's blood pressure, pulse, and oxygen saturations were monitored continuously.The Colonoscope was introduced through the anus and advanced to the cecum, identified by appendiceal orifice and ileocecal valve. The colonoscopy was performed without difficulty. The patient tolerated the procedure well. The quality of the bowel preparation was adequate. Findings: A 5 mm polyp was found in the transverse colon. The polyp was sessile. The polyp was removed with acold snare. Resection and retrieval were complete. A 3 mm polyp was found in the cecum. The polyp was sessile. The polyp was removed with a jumbo cold forceps. Resection and retrieval were complete. Many small and large-mouthed diverticula were foundin the entire colon. An area of moderately congested mucosa was found in the entire colon. More pronounced in left colon. Procedure Code(s): --- Professional --- 02339, Colonoscopy, flexible; with removal of tumor(s), polyp(s), or other lesion(s) by snare technique 73384, 59, Colonoscopy, flexible; with biopsy,single or multiple Diagnosis Code(s): --- Professional --- Z86.010, Personal history of colonic polyps D12.3, Benign neoplasm of transverse colon (hepatic flexure or splenic flexure) D12.0, Benign neoplasm of cecum K63.89, Other specified diseases of intestine K57.30, Diverticulosis of large intestine without perforation or abscess without bleeding CPT copyright 2020 [employer]. All rights reserved. The codes documented in this report are preliminary and upon willow machine operator reviewmay be revised to meet current compliance requirements. MD Wilbert Kern MD 10/19/2024 11:24:22 AM This report has been signed electronically.Wilbert Carlson MD Number of Addenda: 0 Note Initiated On: 10/19/2024 10:58 AM Scope In: Scope Out: Endoscopy Department at [facility] - [address] [place] [phone] IMPRESSION: - One 5 mm polyp in the transverse colon, removed with a cold snare. Resected and retrieved. - One 3 mm polyp in the cecum, removed with a jumbo cold forceps. Resected and retrieved. - Diverticulosis in the entire examined colon. - Congested mucosa in the entire examined colon. Recommendation: - Patient has a contact number available for emergencies. The signs and symptoms of potential delayed complications were discussed with thepatient. Return to normal activities tomorrow. Written discharge instructions were provided to thepatient. - Resume previous diet. - Continue present medications. - Await pathology results. us Wilbert Carlson MD GI~PROCEDURE ORDERABLES Final R esult * EGD Anesthesia - MAC; [facility] (10/19/2024 11:20 AM EST) Anatomical Region Laterality Modality Endoscopy 10/19/2024 11:1 5 AM EST Impressions 10/19/2024 11:22 AM EST - Grade I esophageal varices. ? - Portal hypertensive gastropathy. ? - The examination was otherwise normal. ? - No specimens collected. Recommendation: ?- Patient has a contact number available for ? emergencies. The signs and symptoms of potential ? delayed complications were discussed with the patient. ? Return to normal activities tomorrow. Written ? discharge instructions were provided to the patient. ? - Resume previous diet. ? - Continue present medications. ? - Repeat upper endoscopy in 1 year for surveillance. Narrative 10/19/2024 11:22 AM EST [facility] GI Patient Name: Ryder Thornton Procedure Date: 10/19/2024 11:15 AM Date of : 1950 Age: 73 Gender: Male Note Status: Finalized Attending MD: Wilbert Carlson MD, Procedure Date No Time: 10/19/2024 Procedure: ? Upper GI endoscopy Indications: ? Follow-up of esophageal varices Providers: ? Wilbert Carlson MD Referring MD: ?Wilbert Carlson MD Medicines: ? Monitored Anesthesia Care Complications: ? No immediate complications. Estimated Blood Loss: ? Estimated blood loss: none. Procedure: ? After obtaining informed consent, the endoscope was ? passed under direct vision. Throughout the procedure, ? the patient's blood pressure, pulse, and oxygen ? saturations were monitored continuously. The Olympus ? Gastroscope was introduced through the mouth, and ? advanced to the third part of duodenum. The upper GI ? endoscopy was accomplished without difficulty. The ? patient tolerated the procedure well. Findings: ?Grade I varices were found in the lower third of the ? esophagus. They were small in size. ? Mild portal hypertensive gastropathy was found in the ? entire examined stomach. ? The exam was otherwise without abnormality. Procedure Code(s): ? --- Professional --- ? 55024, Esophagogastroduodenoscopy, flexible, ? transoral; diagnostic, including collection of ? specimen(s) by brushing or washing, when performed ? (separate procedure) Diagnosis Code(s): ? --- Professional --- ? I85.00, Esophageal varices without bleeding ? K76.6, Portal hypertension ? K31.89, Other diseases of stomach and duodenum CPT copyright 2020 [employer]. All rights reserved. The codes documented in this report are preliminary and upon willow machine operator review may be revised to meet current compliance requirements. MD Wilbert Kern MD 10/19/2024 11:22:02 AM This report has been signed electronically.Wilbert Carlson MD Number of Addenda: 0 Note Initiated On: 10/19/2024 11:15 AM Scope In: Scope Out: ? Endoscopy Department at [facility] - [address] [place] [address], ? [place] [address] Procedure Note Wilbert Carlson MD - 10/19/2024 [facility] GI Patient Name: Ryder Thornton Procedure Date: 10/19/2024 11:15 AM Date of : 1950 Age: 73 Gender: Male Note Status: Finalized Attending MD: Wilbert Carlson MD, Procedure Date No Time: 10/19/2024 Procedure: Upper GI endoscopy Indications: Follow-up of esophageal varices Providers: Wilbert Carlson MD Referring MD: Wilbert Carlson MD Medicines: Monitored Anesthesia Care Complications: No immediate complications. Estimated Blood Loss: Estimated blood loss: none. Procedure: After obtaining informed consent, the endoscope was passed under direct vision. Throughout theprocedure, the patient's blood pressure, pulse, and oxygen saturations were monitored continuously. TheOlympus Gastroscope was introduced through the mouth, and advanced to the third part of duodenum. The upperGI endoscopy was accomplished without difficulty. The patient tolerated the procedure well. Findings: Grade I varices were found in the lower third ofthe esophagus. They were small in size. Mild portal hypertensive gastropathy was found inthe entire examined stomach. The exam was otherwise without abnormality. Procedure Code(s): --- Professional --- 63578, Esophagogastroduodenoscopy, flexible, transoral; diagnostic, including collection of specimen(s) by brushing or washing, when performed (separate procedure) Diagnosis Code(s): --- Professional --- I85.00, Esophageal varices without bleeding K76.6, Portal hypertension K31.89, Other diseases of stomach and duodenum CPT copyright 202 [employer]. All rights reserved. The codes documented in this report are preliminary and upon willow machine operator reviewmay be revised to meet current compliance requirements. MD Wilbert Kern MD 10/19/2024 11:22:02 AM This report has been signed electronically.Wilbert Carlson MD Number of Addenda: 0 Note Initiated On: 10/19/2024 11:15 AM Scope In: Scope Out: Endoscopy Department at [facility] - [address] [place] [phone] IMPRESSION: - Grade I esophageal varices. - Portal hypertensive gastropathy. - The examination was otherwise normal. - No specimens collected. Recommendation: - Patient has a contact number available for emergencies. The signs and symptoms of potential delayed complications were discussed with thepatient. Return to normal activities tomorrow. Written discharge instructions were provided to thepatient. - Resume previous diet. - Continue present medications. - Repeat upper endoscopy in 1 year forsurveillance. us Wilbert Carlson MD GI~PROCEDURE ORDERABLES Final R esult * Tissue exam (10/19/2024 11:07 AM EST) Final Diagnosis A. Cecum, polyp x1: Minute tubular adenoma. B. Transverse Colon, polyp x1: Nondiagnostic . Fecal debris only; no mucosa is identified on gross or histologic evaluation. 10/20/2024 12:54 PM [facility] Gross Description A. Large Intestine, Cecum, polyp x1: Labeled cecum colon polyp x 1 . Received in formalin is a 0.4 cm irregular diaz mucosal tissue fragment which is wrapped in paper and submitted in toto in one cassette, one piece, multiple levels on one slide. B. Large Intestine, Transverse Colon, polyp x1: Labeled trans colon polyp x 1 . Received in formalin is a 0.3 cm aggregate of a friable yellow partially mucoid organic debris. No mucosal tissue is identified. The specimen is wrapped in paper and entirely submitted one cassette, multiple pieces, multiple levels on one slide. Please note: The specimen is mostly mucoid and may not survive processing. MAILE 10/20/2024 12:54 PM [facility] Disclaimer Unless otherwise specified, all tissue is 10% NB formalin fixed and paraffin embedded. 10/20/2024 12:54 PM [facility] Tissue Cecum structure / Unknown 10/19/2024 11:07 AM EST 10/19/2024 12:33 PM EST Tissue specimen (specimen) Transverse colon structure / Unknown 10/19/2024 11:09 AM EST 10/19/2024 12:33 PM EST us Wilbert Carlson MD LAB PATHOLOGY ORDERABLES Final Result [facility] [address] [place] [address], documented in this encounter Visit Diagnoses Diagnosis Nausea and vomiting, unspecified vomiting type History of colon polyps Hx of esophageal varices documented in this encounter Orders Discharge Count Last Ordered Date First Orde red Date DISCHARGE PATIENT 1 10/19/2024 documented in this encounter Care Teams Scrap Wheeler Relationship Specialty Start Date End Date Lou Jolley MD [address] [place] [address] PCP - General Internal Medicine 09/24/24 documented as of this encounter
--- OUTSIDE RECORDS SUMMARY | 2024-10-28 14:20 | XMS_ITS | Encounter Summary ---
Author Organization [employer] Address [address] [place] [address] Care Team Providers Care Senior Java Data Architect Name Role Phone Lou Jolley MD Primary Care Provider [phone] Encounter Details Date Type Department Care Team (Late st Contact Info) Description 10/19/2024 10:58 AM EST Anesthesia Event [facility] [address] [place] [address] French Sheffield MD [address] [place] [address] [address] [place] [address] Anesthesia Record Procedure Summary Procedure Name Responsible Anesthesiologist Anesthesia Start Time Anesthesia Stop Time EGD French Sheffield MD 10/19/24 1058 5 1123 Events Date Time Event Comment 10/19/2024 1019 1058 An Start 1058 An Start Data The patient wa s reevaluated immediately before moderate or deep sedation use and before anesthesia induction. 1058 In Room 1059 Anesthesia Ready 1120 an stop data 1120 Out of Room 1120 Handoff to RN I completed my handoff to the receiving nurse during which we: 1. Identified the patient 2. Identified the responsible provider 3. Reviewed the pertinent medical history 4. Discussed the surgical course 5. Reviewed intra-op anesthesia management and issues during anesthesia 6. Set expectations for post-procedure period 7. Allowed opportunity for questions and acknowledgement of understanding. 1123 An Stop Meds Name Total propofol (DIPRIVAN) injection 10 mg/mL 3 50 mg lidocaine PF (XYLOCAINE-MPF) local injec tion 2% 50 mg lactated Ringer's infusion 500 mL * Agents No agents on file. * Blood No blood administrations on file. Lines, Drains, and Airways Type Details Placement Removal Peripheral IV Placement Date: 10/19/24; Placement Time: 1017; Catheter Size: 20 G; Orientation: Posterior, Right; Location: Hand; Insertion Attempts: 1; Patient Tolerance: Tolerated well; Removal Date: 10/19/24; Removal Time: 1141 10/19/24 1017 by Mireya Fuentes RN 10/19/24 1141 by Mildred Salinas RN documented in this encounter Social History Tobacco Use Types Packs/Day Years [...] as of this encounter Progress Notes * Boby Villalba CRNA - 10/19/2024 12:26 PM EST Patient: Ryder Thornton Procedure Summary Date: 10/19/24 Room / Location: [facility] Anesthesia Start: 1058 Anesthesia Stop: 1123 Procedures: EGD COLONOSCOPY Diagnosis: Nausea and vomiting, unspecified vomiting type History of colon polyps Hx of esophageal varices (Follow-up of esophageal varices) (High risk colon cancer surveillance: Personal history of colonic polyps) Scheduled Providers: Wilbert Carlson MD; Boby Villalba CRNA; Zackary Combs DO Responsible Provider: French Sheffield MD Anesthesia Type: MAC ASA Status: 3 Anesthesia Plan: MAC Last Vitals: Vitals Value Taken Time BP 130/87 10/19/24 1141 Temp 36.4 ??C (97.6 ??F) 10/19/24 1121 Pulse 67 10/19/24 1141 Resp 18 10/19/24 1141 SpO2 96 % 10/19/24 1141 No data recorded Anesthesia Post Evaluation Patient location during evaluation: PACU Patient participation: complete - patient participated Level of consciousness: awake Pain score: 0 Pain management: adequate Airway patency: patent Anesthetic complications: no Cardiovascular status: acceptable Respiratory status: acceptable Hydration status: acceptable Nausea: No Vomiting: No There were no known notable events for this encounter. * French Sheffield MD - 10/19/2024 10:13 AM EST 73 y.o. male scheduled for Nausea and vomiting, unspecified vomiting type; History of colon polyps; H* [EGD COLONOSCOPY] Ht Readings from Last 1 Encounters: 10/09/24 1.829 m (72 ) Wt Readings from Last 1 Encounters: 10/09/24 86.2 kg (190 lb) Body mass index is 25.77 kg/m??. No past medical history on file. Past Surgical History: Procedure Laterality Date COLONOSCOPY 10/2019 TA x2, tics througout, rectal varies (3-5 yr) ESOPHAGOGASTRODUODENOSCOPY 06/202424 grade 1 varices, portal HTN gastropathy (1 yr) ESOPHAGOGASTRODUODENOSCOPY 06/202323 grade 1 varices ( 1 yr) ESOPHAGOGASTRODUODENOSCOPY 12/202223 Grade 2 varices, banded, defalted, mild portal HTNgastropathy ESOPHAGOGASTRODUODENOSCOPY 05/202222 Grade 2 varices, banded, eradicated, portal HTN gastropathy ESOPHAGOGASTRODUODENOSCOPY 10/2019 2 cords of varices in lower third 1- 2+, portal HTN gastropathy findings Anesthesia complications Denies Allergies Allergen Reactions Chlorpromazine Palpitations Fast heart rate Prior to Admission medications Medication Sig Start Date End Date Taking? Authorizing Provider amLODIPine (NORVASC) 2.5 mg tablet Take 1 tablet (2.5 mg total) by mouth 1 (one) time each day. 09/05/24 Historical Provider, atorvastatin (LIPITOR) 20 mg tablet Take 1 tablet (20 mg total) by mouth 1 (one) time each day. 03/30/24 Historical Provider, cholecalciferol (VITAMIN D-3) 25 mcg (1,000 unit) tablet Take 1 tablet (1,000 Units total) by mouth1 (one) time each day. Historical Provider, meloxicam (MOBIC) 7.5 mg tablet Take 1 tablet (7.5 mg total) by mouth 1 (one) time each day. 09/15/24 Historical Provider, nadoloL (CORGARD) 40 mg tablet Take 1 tablet (40 mg total) by mouth 1 (one) time each day. 07/27/24istorical Provider, omeprazole (PriLOSEC) [address] capsule 09/24/24 Historical Provider, tamsulosin (FLOMAX) 0.4 mg 24 hr capsule Take 1 capsule (0.4 mg total) by mouth 1 (one) time each day. 08/18/24 Historical Provider, trospium 60 mg capsule,extended release 24hr Take 1 capsule (60 mg total) by mouth 1 (one) time each day. 08/02/24 Historical Provider, MD Ash have personally reviewed all the patient's medications with them prior to anesthesia. Current In-hospital Medications Social History Tobacco Use Smoking status: Never Substance Use Topics Alcohol use: Not Currently Is the patient a current smoker (e.g. cigarette, cigar, pip, e-cigarette, or mariajuana)? Yes [] No[] Patient previously instructed to abstain from smoking on the day of procedure? Yes [] No[] Patient smoked on the day of procedure? Yes [] No[] ASPIRE smoking VBR: [] Not interested in quitting [] Interested in quitting- referred to treatment [] Interested in quitting - treatment provided Visit Vitals Ht 1.829 m (72 ) Wt 86.2 kg (190 lb) BMI 25.77 kg/m?? Smoking Status Never BSA 2.08 m?? LABS: Lab Results Component Value Date WBC 6.2 10/12/2024 HGB 12.3 (L) 10/12/2024 HCT 38.0 (L) 10/12/2024 MCV 95.5 10/12/2024 PLT 10/12/2024 Comment: Not measured. Platelets appear adequate but clumped Lab Results Component Value Date GLUCOSE 117 (H) 10/12/2024 CALCIUM 8.8 10/12/2024 NA 139 10/12/2024 K 3.5 10/12/2024 CO2 31 10/12/2024 CL 103 10/12/2024 BUN 11 10/12/2024 CREATININE 0.77 10/12/2024 Lab Results Component Value Date INR 1.1 10/12/2024 No results found for: PTT Relevant Problems Cardio (+) 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) (+) HTN (hypertension) GI (+) Cirrhosis of liver without ascites (CMS/HCC) (+) Gastroesophageal reflux disease without esophagitis Other (+) Adenomatous polyp of colon Clinical information reviewed: Allergies Anesthesia Plan ASA 3 Anesthesia Plan: MAC Induction method: intravenous Anesthetic plan and risks discussed with patient. Anesthesia Plan discussed with FUNCTIONAL MANAGER. Anesthesia Evaluation No history of anesthetic complications Airway Mallampati: II Thyromental distance: > 3 finger breadths Neck ROM: fullnot intubatedno noted risk Dental (+) upper dentures and lower dentures Comment: Upper and lower partials Pulmonary - negative ROS breath sounds clear to auscultation Cardiovascular (+) hypertension Rhythm: regular Rate: normal Neuro/Psych - negative ROS GI/Hepatic/Renal (+) GERD, liver disease (Hemochromatosis, cirrhoisis, varices, ascites) Endo/Other - negative ROS Abdominal PONV RISK SCORE: 1 Vitals: 10/09/24 1100 Weight: 86.2 kg (190 lb) Height: 1.829 m (72 ) SpO2 Readings from Last 1 Encounters: No data found for SpO2 WBC Date Value Ref Range Status 10/12/2024 6.2 4.8 - 10.8 K/mcL Final RBC Date Value Ref Range Status 10/12/2024 4.00 (L) 4.50 - 5.50 M/mcL Final Hemoglobin Date Value Ref Range Status 10/12/2024 12.3 (L) 13.5 - 17.5 g/dL Final Hematocrit Date Value Ref Range Status 10/12/2024 38.0 (L) 42.0 - 54.0 % Final Platelets Date Value Ref Range Status 10/12/2024 Final Comment: Not measured. Platelets appear adequate but clumped MCV Date Value Ref Range Status 10/12/2024 95.5 79.0 - 98.0 FL Final Allergies Allergen Reactions Chlorpromazine Palpitations Fast heart rate STOP BANG: No data recorded NPO Status: Time of Last Liquid: 0500 Time of Last Solid: 1700 documented in this encounter Plan of Treatment Upcoming Encounters Date Type Department Care Team (Late st Contact Info) Description 10/30/2024 9:00 AM EST Appointment [facility] Scan [address] [place] [phone] documented as of this encounter Visit Diagnoses Not on filedocumented in this encounter Administered Medications Inactive Administered Medications - up to 3 most recent administrations Medication Order MAR Action Action Date Dose Rate Site lactated Ringer's infusion intravenous, Continuous PRN, Starting on Sat10/19/24 at 1059, Anesthesia Intraprocedure New Bag 10/19/2024 10:59 AM EST lidocaine (PF) (XYLOCAINE-MPF) 2 % injection injection, As needed, Starting on Sat10/19/24 at 1101, Anesthesia Intraprocedure Given 10/19/2024 11:01 AM EST 50 mg propofoL (DIPRIVAN) injection intravenous, As needed, Starting on Sat10/19/24 at 1101, Anesthesia Intraprocedure Given 10/19/2024 11:16 AM EST 50 mg Given 10/19/2024 11:13 AM EST 50 mg Given 10/19/2024 11:10 AM EST 50 mg documented in this encounter Care Teams Senior Java Data Architect Relationship Specialty Start Date End Date Lou Jolley MD [address] [address] PCP - General Internal Medicine 09/24/24 documented as of this encounter
--- OUTSIDE RECORDS SUMMARY | 2024-10-28 14:20 | XMS_ITS | Encounter Summary ---
Author Organization [facility] Address [address] [place] [address] Care Team Providers Care Online Merchandising Specialist Name Role Phone Lou Jolley MD Primary Care Provider [phone] Encounter Details Date Type Department Care Team (Late Contact Info) Description 10/05/2024 Telephone Gastroenterology - [address] [phone] Wilbert Carlson MD [address] [address] Social History Tobacco Use Types Packs/Day Years [...] PM EST documented as of this encounter Ordered Prescriptions Prescription Sig Dispense Quantity Refills Last Filled Start Date End Date polyethylene glycol (COLYTE) 240-22.72-6.72 -5.84 gram solutionIndication s:Nausea and vomiting, unspecified vomiting type,History of colon polyps,Hx of esophageal varices Take 4,000 mL by mouth 1 (one) time for 1 dose. Drink 8 oz every 10-15 minutes until solution is gone 4000 mL 10/05/2024 documented in this encounter Plan of Treatment Upcoming Encounters Date Type Department Care Team (Late Contact Info) Description 10/30/2024 9:00 AM EST Appointment [facility] Scan [address] [place] [address] documented as of this encounter Visit Diagnoses Diagnosis Nausea and vomiting, unspecified vomiting type- Primary History of colon polyps Hx of esophageal varices documented in this encounter Care Teams Online Merchandising Specialist Relationship Specialty Start Date End Date Lou Jolley MD [address] [place] [address] PCP - General Internal Medicine 09/24/24 documented as of this encounter
--- OUTSIDE RECORDS SUMMARY | 2024-10-28 14:21 | XMS_ITS | Clinical Summary ---
Author Organization [facility] [address] [facility] Address [address] [place] [address] Phone Care Team Providers Care Plastic Welder Name Role Phone Lou Jolley MD Primary Care Provider [phone] Allergies Active Allergy Reactions Criticality Noted Date Comments Chlorpromazine Palpitations Medium 03/27/2021 Fast heart rate Medications trospium 60 mg capsule,extende d release 24hr Take 1 capsule (60 mg total) by mouth 1 (one) time each day. 4 Active tamsulosin (FLOMAX) 0.4 mg 24 hr capsule Take 1 capsule (0.4 mg total) by mouth 1 (one) time each day. 4 Active nadoloL (CORGARD) 40 mg tablet Take 1 tablet (40 mg total) by mouth 1 (one) time each day. 4 Active meloxicam (MOBIC) 7.5 mg tablet Take 1 tablet (7.5 mg total) by mouth 1 (one) time each day. 4 Active atorvastatin (LIPITOR) 20 mg tablet Take 1 tablet (20 mg total) by mouth 1 (one) time each day. 4 Active amLODIPine (NORVASC) 2.5 mg tablet Take 1 tablet (2.5 mg total) by mouth 1 (one) time each day. 4 Active cholecalciferol (VITAMIN D-3) 25 mcg (1,000 unit) tablet Take 1 tablet (1,000 Units total) by mouth 1 (one) time each day. Active omeprazole (PriLOSEC) [address] capsuleIndicati ons:Gastroesoph ageal reflux disease without esophagitis Take 1 capsule (20 mg total) by mouth 1 (one) time each day. Do not crush or chew. 90 each 5 01/22/20 25 Active omeprazole (PriLOSEC) [address] capsule 5 10/23/19 25 Discontinue d(Reorder) polyethylene glycol (COLYTE) 240-22.72-6.72 -5.84 gram solutionIndicat ions:Nausea and vomiting, unspecified vomiting type,History of colon polyps,Hx of esophageal varices Take 4,000 mL by mouth 1 (one) time for 1 dose. 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 Emergency [address] [place] [address] 10/19/2024 10:58 AM EST Anesthesia Event [facility] Endoscopy [address] [place] [address] French Sheffield MD 10/19/2024 9:49 AM EST - 10/19/2024 11:59 PM EST Hospital Encounter [facility] Endoscopy [address] [place] [address] Wilbert Carlson MD Hayes, Brett L, YOLETTE Nausea and vomiting, unspecified vomiting type; History of colon polyps; Hx of esophageal varices Discharge Disposition: Home or Self Care 10/12/2024 Telephone Gastroenterology - [address] [place] [phone] Katie Baker PA 10/05/2024 Telephone Gastroenterology - [address] [place] [address] Wilbert Carlson MD 10/05/2024 Telephone Gastroenterology - [address] [place] [phone] Katie Baker PA 09/28/2024 2:20 PM EST Office Visit Gastroenterology - [address] [place] [address] Katie Baker PA Umbilical hernia without obstruction and without gangrene (Primary Dx) from Last 3 Months Surgical History Surgery Date Site/Laterality Comments COLONOSCOPY 10/17/2019 - 11/14/2019 TA x2, tics througout, rectal varies (3-5 yr) ESOPHAGOGASTRODUODENOSCOPY 06/16/2024 - 07/16/2024 grade 1 varices, portal HTN gastropathy (1 yr) ESOPHAGOGASTRODUODENOSCOPY 06/16/2023 - 07/16/2023 grade 1 varices ( 1 yr) ESOPHAGOGASTRODUODENOSCOPY 12/15/2022 - 01/13/2023 Grade 2 varices, banded, defalted, mild portal HTNgastropathy ESOPHAGOGASTRODUODENOSCOPY 05/17/2022 - 06/15/2022 Grade 2 varices, banded, eradicated, portal HTN gastropathy ESOPHAGOGASTRODUODENOSCOPY 10/17/2019 - 11/14/2019 2 cords of varices in lower third 1- 2+, portal HTN gastropathy findings HIP SURGERY Right replacement KNEE SURGERY Right replacement Medical History Medical History Date Comments Liver disease Hemochromatosis GERD (gastroesophageal reflux disease) Hypertension Arthritis Social History Tobacco Use Types Packs/Day Years [...] not to disclose 2024 1:17 PM EST Obstetrics History Last Filed Vital Signs Vital Sign Reading [...] Mass Index 25.77 10/19/2024 10:15 AM EST Plan of Treatment Upcoming Encounters Date Type Department Care Team (Late st Contact Info) Description 10/30/2024 9:[address] [facility] CT Scan [address] [place] [address] Health Maintenance Due Date Last Done Comments Hepatitis A Vaccines (1 of 2 - Risk 2-dose series) 11/29/1969 Hepatitis B Vaccines (1 of 3 - Risk 3-dose series) 2012 Pneumococcal Vaccine: 50+ Years (2 of 2 - PPSV23) 07/13/2020 05/18/2020 Cholesterol Screening (Lipid Panel) 08/19/2022 Depression Screening 08/19/2022 Hepatitis C Screening 08/19/2022 Medicare Annual Wellness Visit 08/19/2022 Social Influencers of Health Screening 08/19/2022 DTaP,Tdap,and Td Vaccines (2 - Td or Tdap) 09/17/2024 09/17/2014 Hypertension/CHF/CAD Annual BMP Blood Test 10/12/2025 10/12/2024 Falls Risk Assessment 10/19/2025 10/19/2024 Colorectal Cancer Screening: Colonoscopy 10/19/2034 10/19/2024 Zoster Vaccines Completed 12/29/2021, 01/2022, 09/17/2014 COVID-19 Vaccine Completed 05/31/2024, , 07/16/2022, Additional history exists Influenza Vaccine Completed 05/31/2024, , 05/27/2022, Additional history exists RSV Immunization Patients 60+ Years Old Completed 06/28/2024 HIB Vaccines Aged Out No longer eligi ble based on patient's age to complete this topic HPV Vaccines Aged Out No longer eligi ble based on patient's age to complete this topic IPV Vaccines Aged Out No longer eligi ble based on patient's age to complete this topic MMR Vaccines Aged Out No longer eligi ble based on patient's age to complete this topic Meningococcal ACWY Vaccine Aged Out N o longer eligible based on patient's age to complete this topic Meningococcal B Vacine Aged Out No lo nger eligible based on patient's age to complete this topic RSV Immunization Patients Under 20 months Aged Out No longer eligible based on patient's age to complete this topic Varicella Vaccines Aged Out No longer eligible based on patient's age to complete this topic Medical Devices Implanted Type Area Web Site Admin Device Identifier Shelf Expiration Date Model / Serial / Lot Replacememnt Right: Hip Replacement Right: Knee Procedures Procedure Name Priority Date/Time Associated Diagnosis [...] of colon polyps Hx of esophageal varices BILIRUBIN DUPLICATE PROCEDURE TO ORDER Routine 10/12/2024 11:16 AM EST Nausea and vomiting, unspecified vomiting type Umbilical hernia without obstruction and without gangrene Lack of appetite Other cirrhosis of liver (CMS/HCC) Hereditary hemochromatosis (CMS/HCC) CBC WITH AUTO DIFFERENTIAL Routine 10/12/2024 11:16 AM EST Nausea and vomiting, unspecified vomiting type Umbilical hernia without obstruction and without gangrene Lack of appetite Other cirrhosis of liver (CMS/HCC) Hereditary hemochromatosis (CMS/HCC) IRON AND TIBC Routine 10/12/2024 11:16 AM EST Nausea with vomiting Abnormal finding of blood chemistry, unspecified PROTHROMBIN TIME WITH INR Routine 10/12/2024 11:16 AM EST Nausea and vomiting, unspecified vomiting type Umbilical hernia without obstruction and without gangrene Lack of appetite Other cirrhosis of liver (CMS/HCC) Hereditary hemochromatosis (CMS/HCC) ALPHA FETOPROTEIN TUMOR MARKER Routine 10/12/2024 11:16 AM EST Nausea and vomiting, unspecified vomiting type Umbilical hernia without obstruction and without gangrene Lack of appetite Other cirrhosis of liver (CMS/HCC) Hereditary hemochromatosis (CMS/HCC) THYROID STIMULATING IMMUNOGLOBULIN Routine 10/12/2024 11:16 AM EST Nausea and vomiting, unspecified vomiting type Umbilical hernia without obstruction and without gangrene Lack of appetite Other cirrhosis of liver (CMS/HCC) Hereditary hemochromatosis (CMS/HCC) AMYLASE Routine 10/12/2024 11:16 AM EST Nausea and vomiting, unspecified vomiting type Umbilical hernia without obstruction and without gangrene Lack of appetite Other cirrhosis of liver (CMS/HCC) Hereditary hemochromatosis (CMS/HCC) LIPASE Routine 10/12/2024 11:16 AM EST Nausea and vomiting, unspecified vomiting type Umbilical hernia without obstruction and without gangrene Lack of appetite Other cirrhosis of liver (CMS/HCC) Hereditary hemochromatosis (CMS/HCC) COMPREHENSIVE METABOLIC PANEL Routine 10/12/2024 11:16 AM EST Nausea and vomiting, unspecified vomiting type Umbilical hernia without obstruction and without gangrene Lack of appetite Other cirrhosis of liver (CMS/HCC) Hereditary hemochromatosis (CMS/HCC) CBC AND DIFFERENTIAL Routine 10/12/2024 11:16 AM EST Nausea and vomiting, unspecified vomiting type Umbilical hernia without obstruction and without gangrene Lack of appetite Other cirrhosis of liver (CMS/HCC) Hereditary hemochromatosis (CMS/HCC) EXTERNAL CLINICAL LAB 08/03/2024 from Last 3 Months Results * COLONOSCOPY Anesthesia - [facility]; [facility] (10/19/2024 11:20 AM EST) Anatomical Region [...] pathology results. Narrative 10/19/2024 11:[address] [facility] GI Patient Name: Ryder Thornton Procedure Date: [...] Procedure Code(s): ? --- Professional --- ? 38328, Colonoscopy, flexible; with removal of ? tumor(s), polyp(s), or other lesion(s) by snare ? technique ? 48063, 59, Colonoscopy, flexible; with biopsy, single ? or multiple Diagnosis Code(s): ? --- Professional --- ? Z86.010, Personal history of colonic polyps ? D12.3, Benign neoplasm of transverse colon (hepatic ? flexure or splenic flexure) ? D12.0, Benign neoplasm of cecum ? K63.89, Other specified diseases of intestine ? K57.30, Diverticulosis of large intestine without ? perforation or abscess without bleeding CPT copyright 202 [employer]. All rights reserved. The codes documented in this report are preliminary and upon anode crew supervisor review may be revised to meet current compliance requirements. MD Wilbert Kern MD 10/19/2024 11:24:22 AM This report has been signed electronically.Wilbert Carlson MD Number of Addenda: 0 Note Initiated On: 10/19/2024 10:58 AM Scope In: Scope Out: ? Endoscopy Department at [facility] - [address] [place] [address], ? [place] [address] Procedure Note Wilbert Carlson MD - 10/19/2024 [facility] GI Patient Name: Ryder Thornton Procedure Date: [...] left colon. Procedure Code(s): --- Professional --- 04484, Colonoscopy, flexible; with removal of tumor(s), polyp(s), or other lesion(s) by snare technique 04990, 59, Colonoscopy, flexible; with biopsy,single or multiple Diagnosis Code(s): --- Professional --- Z86.010, Personal history of colonic polyps D12.3, Benign neoplasm of transverse colon (hepatic flexure or splenic flexure) D12.0, Benign neoplasm of cecum K63.89, Other specified diseases of intestine K57.30, Diverticulosis of large intestine without perforation or abscess without bleeding CPT copyright 2020 [employer]. All rights reserved. The codes documented in this report are preliminary and upon anode crew supervisor reviewmay be revised to meet current compliance requirements. MD Wiblert Kern MD 10/19/2024 11:24:22 AM This report has been signed electronically.Wilbert Carlson MD Number of Addenda: 0 Note Initiated On: 10/19/2024 10:58 AM Scope In: Scope Out: Endoscopy Department at [facility] - [address] [place] [phone] IMPRESSION: - One 5 mm polyp in [...] R esult * EGD Anesthesia - [facility]; [facility] (10/19/2024 11:20 AM EST) Anatomical Region [...] for surveillance. Narrative 10/19/2024 11:[address] [facility] GI Patient Name: Ryder Thornton Procedure Date: [...] Procedure Code(s): ? --- Professional --- ? 93490, Esophagogastroduodenoscopy, flexible, ? transoral; diagnostic, including collection of ? specimen(s) by brushing or washing, when performed ? (separate procedure) Diagnosis Code(s): ? --- Professional --- ? I85.00, Esophageal varices without bleeding ? K76.6, Portal hypertension ? K31.89, Other diseases of stomach and duodenum CPT copyright 2020 [employer]. All rights reserved. The codes documented in this report are preliminary and upon anode crew supervisor review may be revised to meet current compliance requirements. MD Wilbert Kern MD 10/19/2024 11:22:02 AM This report has been signed electronically.Wilbert Carlson MD Number of Addenda: 0 Note Initiated On: 10/19/2024 11:15 AM Scope In: Scope Out: ? Endoscopy Department at [facility] - [address] [place] [address], ? [place] [address] Procedure Note Wilbert Carlson MD - 10/19/2024 [facility] GI Patient Name: Ryder Thornton Procedure Date: [...] without abnormality. Procedure Code(s): --- Professional --- 23358, Esophagogastroduodenoscopy, flexible, transoral; diagnostic, including collection of specimen(s) by brushing or washing, when performed (separate procedure) Diagnosis Code(s): --- Professional --- I85.00, Esophageal varices without bleeding K76.6, Portal hypertension K31.89, Other diseases of stomach and duodenum CPT copyright 2020 [employer]. All rights reserved. The codes documented in this report are preliminary and upon anode crew supervisor reviewmay be revised to meet current compliance requirements. MD Wilbert Kern MD 10/19/2024 11:22:02 AM This report has been signed electronically.Wilbert Carlson MD Number of Addenda: 0 Note Initiated On: 10/19/2024 11:15 AM Scope In: Scope Out: Endoscopy Department at [facility] - [address] [place] [phone] IMPRESSION: - Grade I esophageal varices. - [...] Repeat upper endoscopy in 1 year forsurveillance. Wilbert Carlson MD GI~PROCEDURE ORDERABLES Final R esult * Tissue exam (10/19/2024 11:07 AM EST) Final Diagnosis A. Cecum, polyp x1: Minute tubular adenoma. B. Transverse Colon, polyp x1: Nondiagnostic . Fecal debris only; no mucosa is identified on gross or histologic evaluation. 10/20/2024 12:54 PM [facility] Gross Description A. Large Intestine, Cecum, [...] not survive processing. MAILE 10/20/2024 12:54 PM [facility] Disclaimer Unless otherwise specified, all tissue is 10% NB formalin fixed and paraffin embedded. 10/20/2024 12:54 PM [facility] Tissue Cecum structure / Unknown 10/19/2024 11:07 AM EST 10/19/2024 12:33 PM EST Tissue specimen (specimen) Transverse colon structure / Unknown 10/19/2024 11:09 AM EST 10/19/2024 12:33 PM EST Wilbert Carlson MD LAB PATHOLOGY ORDERABLES Final Result [facility] [address] [place] [address], [place] [phone] * Bilirubin duplicate procedure to order (10/12/2024 11:16 AM EST) Total Bilirubin 0.8 0.0 - 1.4 mg/dL LAB CHEMISTRY METHOD 10/12/2024 3:47 PM EST [facility] Bilirubin, Direct 0.2 0.0 - 0.3 mg/dL LAB CHEMISTRY METHOD 10/12/2024 3:47 PM EST [facility] Bilirubin, Indirect 0.6 0.0 - 1.1 mg/dL LAB CHEMISTRY METHOD 10/12/2024 3:47 PM EST [facility] Blood Venous blood specimen / Unknown Venipuncture / Unknown 10/12/2024 11:16 AM EST 10/12/2024 12:50 PM EST Katie JAY LAB BLOOD ORDERABLES Final R esult [facility] [address] [place] [address], [place] [phone] * (ABNORMAL) CBC auto differential (10/12/2024 11:16 AM EST) WBC 6.2 4.8 - 10.8 K/mcL LAB HEMETOLOGY METHOD 10/12/2024 3:32 PM EST [facility] RBC 4.00(L) 4.50 - 5.50 M/mcL LAB HEMETOLOGY METHOD 10/12/2024 3:32 PM [facility] Hemoglobin 12.3(L) 13.5 - 17.5 g/dL LAB HEMETOLOGY METHOD 10/12/2024 3:32 PM [facility] Hematocrit 38.0(L) 42.0 - 54.0 % LAB HEMETOLOGY METHOD 10/12/2024 3:32 PM [facility] MCV 95.5 79.0 - 98.0 FL LAB HEMETOLOGY METHOD 10/12/2024 3:32 PM [facility] MCH 30.9 27.0 - 32.0 pcg LAB HEMETOLOGY METHOD 10/12/2024 3:32 PM [facility] MCHC 32.4 32.0 - 37.0 g/dL LAB HEMETOLOGY METHOD 10/12/2024 3:32 PM [facility] RDW 13.4 11.0 - 15.0 % LAB HEMETOLOGY METHOD 10/12/2024 3:32 PM [facility] Platelets 10/12/2024 3:32 PM [facility] Comment:Not measured. Platel ets appear adequate but clumped MPV 12.3(H) 7.0 - 11.0 FL LAB HEMETOLOGY METHOD 10/12/2024 3:32 PM [facility] NRBC 0.0 <1.0 % LAB HEMETOLOGY METHOD 10/12/2024 3:32 PM [facility] NRBC Absolute 0.00 <0.10 K/mcL LAB HEMETOLOGY METHOD 10/12/2024 3:32 PM [facility] Neutrophils Relative 60.8 % LAB HEMETOLOGY METHOD 10/12/2024 3:32 PM [facility] Lymphocytes Relative 25.2 % LAB HEMETOLOGY METHOD 10/12/2024 3:32 PM EST [facility] Monocytes Relative 11.1 % LAB HEMETOLOGY METHOD 10/12/2024 3:32 PM [facility] Eosinophils Relative 1.8 % LAB HEMETOLOGY METHOD 10/12/2024 3:32 PM [facility] Basophils Relative 0.8 % LAB HEMETOLOGY METHOD 10/12/2024 3:32 PM [facility] Immature Granulocytes Relative 0.3 % LAB HEMETOLOGY METHOD 10/12/2024 3:32 PM [facility] Neutrophils Absolute 3.80 1.50 - 7.00 K/mcL LAB HEMETOLOGY METHOD 10/12/2024 3:32 PM [facility] Lymphocytes Absolute 1.57 1.00 - 5.00 K/mcL LAB HEMETOLOGY METHOD 10/12/2024 3:32 PM [facility] Monocytes Absolute 0.69 0.20 - 1.00 K/mcL LAB HEMETOLOGY METHOD 10/12/2024 3:32 PM [facility] Eosinophils Absolute 0.11 0.00 - 0.50 K/mcL LAB HEMETOLOGY METHOD 10/12/2024 3:32 PM [facility] Basophils Absolute 0.05 0.00 - 0.20 K/mcL LAB HEMETOLOGY METHOD 10/12/2024 3:32 PM [facility] Immature Granulocytes Absolute 0.02 0.00 - 0.03 K/mcL LAB HEMETOLOGY METHOD 10/12/2024 3:32 PM [facility] Blood Venous blood specimen / Unknown Venipuncture / Unknown 10/12/2024 11:16 AM EST 10/12/2024 12:54 PM EST us Katie JAY LAB BLOOD ORDERABLES Final R esult [facility] [address] [place] [address], [place] [phone] * (ABNORMAL) Iron and TIBC (10/12/2024 11:16 AM EST) [facility] Iron 81 50 - 160 mcg/dL LAB CHEMISTRY METHOD 10/12/2024 3:47 PM EST [facility] TIBC 209(L) 250 - 450 mcg/dL LAB CHEMISTRY METHOD 10/12/2024 3:47 PM EST [facility] Iron Saturation 39 20 - 50 % LAB CHEMISTRY METHOD 10/12/2024 3:47 PM EST [facility] Blood Venous blood specimen / Unknown Venipuncture / Unknown 10/12/2024 11:16 AM EST 10/12/2024 12:50 PM EST Katie JAY LAB BLOOD ORDERABLES Final R esult [facility] [address] [place] [address], [place] [phone] * Thyroid stimulating immunoglobulin (10/12/2024 11:16 AM EST) [facility] Thyroid Stimulating Immunoglobulin <0.10 <0.10 IU/L 10/15/2024 3:22 PM EST [facility] Comment: Thyroid stimulating immunoglobulins (TSI) concentrations greater than or equal to (>=) 0.55 IU/L have a clinical sensitivity of at least 98.6%, and a clinical specificity of at least 98.5%, for the differential diagnosis of Graves' Disease. TSI concentrations for patients with other thyroid or autoimmune diseases range from 0.11 to 0.39 IU/L. Test performed at [facility], [facility] [place] [place] ? [phone] Carolynn Mckeon MD, PhD - Store Protection Specialist Blood Venous blood specimen / Unknown Venipuncture / Unknown 10/12/2024 11:16 AM EST 10/12/2024 12:50 PM EST Katie JAY LAB BLOOD ORDERABLES Final R esult [place] [address] * Alpha fetoprotein tumor marker (10/12/2024 11:16 AM EST) AFP <2.5 0.0 - 8.0 ng/mL LAB CHEMISTRY METHOD 10/12/2024 3:56 PM EST [facility] Blood Venous blood specimen / Unknown Venipuncture / Unknown 10/12/2024 11:16 AM EST 10/12/2024 12:50 PM EST Narrative [facility] - 10/12/2024 3:56 PM EST The Siemens Advia Centaur Chemiluminescent Immunoassay is used. Results obtained with different assay methods or kits cannot be used interchangeably. Results cannot be interpreted as absolute evidence of the presence or absence of malignant disease. Katie JAY LAB BLOOD ORDERABLES Final R esult Performing Organization Address City/[facility] Co de Phone Number [facility] [address] [place] [address], [place] [phone] * Prothrombin time with INR (10/12/2024 11:16 AM EST) Pathologist [facility] Protime 13.6 10.6 - 13.9 sec LAB COAGULATION METHOD 10/12/2024 1:11 PM EST [facility] INR 1.1 LAB COAGULATION METHOD 10/12/2024 1:11 PM EST [facility] Blood Venous blood specimen / Unknown Venipuncture / Unknown 10/12/2024 11:16 AM EST 10/12/2024 12:53 PM EST Katie JAY LAB BLOOD ORDERABLES Final R esult [facility] [address] [place] [address], [place] [phone] * Lipase (10/12/2024 11:16 AM EST) Pathologist [facility] Lipase 24 13 - 75 unit/L LAB CHEMISTRY METHOD 10/12/2024 3:47 PM EST [facility] Blood Venous blood specimen / Unknown Venipuncture / Unknown 10/12/2024 11:16 AM EST 10/12/2024 12:50 PM EST Katie JAY LAB BLOOD ORDERABLES Final R esult [facility] [address] [place] [address], [place] [phone] * Amylase (10/12/2024 11:16 AM EST) [facility] Amylase 31 25 - 115 unit/L LAB CHEMISTRY METHOD 10/12/2024 3:47 PM EST [facility] Blood Venous blood specimen / Unknown Venipuncture / Unknown 10/12/2024 11:16 AM EST 10/12/2024 12:50 PM EST Katie JAY LAB BLOOD ORDERABLES Final R esult [facility] [address] [place] [address], [place] [phone] * (ABNORMAL) Comprehensive metabolic panel (10/12/2024 11:16 AM EST) [facility] Sodium 139 133 - 145 mmol/L LAB CHEMISTRY METHOD 10/12/2024 3:48 PM [facility] Potassium 3.5 3.5 - 5.5 mmol/L LAB CHEMISTRY METHOD 10/12/2024 3:48 PM [facility] Chloride 103 96 - 110 mmol/L LAB CHEMISTRY METHOD 10/12/2024 3:48 PM [facility] CO2 31 21 - 32 mmol/L LAB CHEMISTRY METHOD 10/12/2024 3:48 PM [facility] Anion Gap 5 3 - 11 LAB CHEMISTRY METHOD 10/12/2024 3:48 PM [facility] Glucose 117(H) 70 - 100 mg/dL LAB CHEMISTRY METHOD 10/12/2024 3:48 PM [facility] BUN 11 5 - 25 mg/dL LAB CHEMISTRY METHOD 10/12/2024 3:48 PM [facility] Creatinine 0.77 0.70 - 1.30 mg/dL LAB CHEMISTRY METHOD 10/12/2024 3:48 PM [facility] eGFR 96 >=60 mL/min/1. 73m2 LAB CHEMISTRY METHOD 10/12/2024 3:48 PM [facility] Comment:Calculation based on the??Chronic Kidney Disease Epidemiology Collaboration (CKD-EPI) equation refit??without adjustment for race. BUN/Creatinine Ratio 14.3 LAB CHEMISTRY METHOD 10/12/2024 3:48 PM [facility] Calcium 8.8 8.5 - 10.5 mg/dL LAB CHEMISTRY METHOD 10/12/2024 3:48 PM [facility] AST (SGOT) 21 10 - 42 unit/L LAB CHEMISTRY METHOD 10/12/2024 3:48 PM [facility] ALT (SGPT) 21 10 - 60 unit/L LAB CHEMISTRY METHOD 10/12/2024 3:48 PM [facility] Alkaline Phosphatase 130(H) 42 - 121 unit/L LAB CHEMISTRY METHOD 10/12/2024 3:48 PM [facility] Total Protein 7.3 6.0 - 8.0 g/dL LAB CHEMISTRY METHOD 10/12/2024 3:48 PM [facility] Albumin 3.0(L) 3.2 - 5.0 g/dL LAB CHEMISTRY METHOD 10/12/2024 3:48 PM EST [facility] Total Bilirubin 0.8 0.0 - 1.4 mg/dL LAB CHEMISTRY METHOD 10/12/2024 3:48 PM EST [facility] Blood Venous blood specimen / Unknown Venipuncture / Unknown 10/12/2024 11:16 AM EST 10/12/2024 12:50 PM EST Katie JAY LAB BLOOD ORDERABLES Final R esult [facility]) [facility] [address] [place] [address], * External clinical lab (08/03/2024) Provider [facility] BLOOD ORDERABLES Fin al Result from Last 3 Months Insurance [employer]UE [employer] - [place] MEDICARE ADVANTAGE Care Teams Plastic Welder Relationship Specialty Start Date End Date Lou Jolley MD [address] [place] [id number] PCP - General Internal Medicine 09/24/24
== END 2024-10-28 14:44 | disposition home or self-care (01) ==
PROVIDERS: PCP Internal Medicine; Visit Provider Physician Assistant
DX: R18.8 Other ascites (principal)

== ENCOUNTER → 2024-10-28 13:00 | Outpatient (BNVA) | payer MEDICARE, SELFPAY | PROVIDERS: PCP Internal Medicine | DX: R18.8 Other ascites (principal) | CPT/HCPCS: 99202 ==

== ENCOUNTER 2024-11-04 15:01 | Outpatient (REF) | payer MEDICARE, SELFPAY ==
--- OUTSIDE RECORDS SUMMARY | 2024-11-04 15:06 | XMS_ITS | Encounter Summary ---
Author Organization [facility] Address [address] [place] [address] Care Team Providers Care Molding Utility Worker Name Role Phone Lou Jolley MD Primary Care Provider [phone] Reason for Visit * Reason Comments Bloated HX ASCITES * Auth/Cert (Routine) Specialty Diagnoses / Procedures Referred By Contac t Referred To Contact Diagnoses Abdominal distension Other ascites Cirrhosis of liver with ascites (CMS/HCC) Procedures [facility] IP/OBS CARE ADMIT/DISCHARGE SAME DATE MODERATE LEVEL Nicholas Davis MD [address] [place] [phone] Phone: tel: fax: [facility] [address] [place] [phone] Phone: tel: Referral ID Status Reason Start Date Expiration Date Visits Re quested Visits Authorized [id number] 1 1 Encounter Details Date Type Department Care Team (Late st Contact Info) Description 10/29/2024 10:12 AM EST - 10/30/2024 4:35 PM EST Emergency [facility] [address] [place] [address] Jordan Miller MD [address] [place] [address] [id number] Nicholas Davis MD [address] [place] [phone] Raman Guajardo MD [address] [place] [address] Abdominal distension (Primary Dx); Other ascites Discharge Disposition: Home or Self Care Social History Tobacco Use Types Packs/Day Years Used Date Smoking Tobacco: Never Alcohol Use Standard Drinks/Week Comments Not Currently 0 (1 standard drink = 0.6 oz pur e alcohol) Interpersonal Safety Answer Date Record ed Physical Abuse 10/29/2024 Verbal Abuse 10/29/2024 Sex and Gender Information Value Date Recorded Sex Assigned at Male 10/09/2024 1:17 PM EST Legal Sex Male 11:33 PM EST Gender Identity Male 10/09/2024 1:17 PM EST Sexual Orientation Choose not to disclose 2024 1:17 PM EST documented as of this encounter Last Filed Vital Signs Vital Sign Reading Time Taken Comments Blood Pressure 153/85 10/30/2024 3:07 PM EST Pulse 55 10/30/2024 3:07 PM EST Temperature 36.4 ??C (97.5 ??F) 10/30/2024 3:07 PM ES T Respiratory Rate 16 10/30/2024 3:07 PM EST Oxygen Saturation 98% 10/30/2024 3:07 PM EST Inhaled Oxygen Concentration - - Weight 77.3 kg (170 lb 6.4 oz) 10/30/2024 6:00 A M EST Height 182.9 cm (6') 10/29/2024 6:56 AM EST Body Mass Index 23.11 10/29/2024 6:56 AM EST documented in this encounter Functional Status * Are you deaf or do you have serious difficulty hearing? Answer Date of Assessment Author Yes 10/29/2024 10:40 AM John Worthington RN * Are you blind or do you have serious difficulty seeing, even when wearing glasses? Answer Date of Assessment Author No 10/29/2024 10:40 AM John Worthington RN * Do you have serious difficulty walking or climbing stairs? Answer Date of Assessment Author No 10/29/2024 10:40 AM John Worthington RN * Do you have serious difficulty dressing or bathing? Answer Date of Assessment Author No 10/29/2024 10:40 AM John Worthington RN * Because of a physical, mental, or emotional condition, do you have serious difficulty doing errandsalone such as visiting the doctor? Answer Date of Assessment Author No 10/29/2024 10:40 AM John Worthintgon RN documented as of this encounter Mental Status * Because of a physical, mental, or emotional condition, do you have serious difficulty concentrating, remembering, or making decisions? (5 years old or older) Answer Entry Date Author No 10/29/2024 10:40 AM John Worthington RN documented in this encounter Discharge Summaries * Raman Guajardo MD - 10/30/2024 4:35 PM EST Images from the original note were not included. CENTER DISCHARGE SUMMARY Patient Information Ryder Thornton : 1950 [73 y.o.] Admitting Provider Nicholas Davis MD Discharge Provider James Redman MD, No att. providers found Primary Care Physician Lou Jolley MD Admission Date 10/29/2024 Discharge Date 10/31/2024 Summary of Hospital Problems Primary Discharge Diagnosis: Decompensated cirrhosis due to new large-volume ascites Mild hypokalemia Hypomagnesemia Secondary Discharge Diagnosis: Hemochromatosis Hypertension Ureteral stricture Osteoarthritis Discharge Destination: Home self-care Code Status at Discharge: Full code Hospital Course Summary As taken from the history and physical: This is a 73-year-old male with the below mentioned medical problems including liver cirrhosis, hemochromatosis cytosis, esophageal varices, portal hypertension follows with Dr. Carlson. Patient states that he has noticed that his abdomen is getting really big and he was having some discomfort feltbloated not hungry so he went to urgent care yesterday and they told him he had ascites and sent him to the emergency room. He came in and noted that there was too many people in the waiting room so they suggested he come back today which she did. Paracentesis has been ordered. At the time of this interview he is now post paracentesis with 7 L off he states he feels much better and has no abdominal pain. The patient was then admitted to medicine for further evaluation and treatment. The following issues were addressed: The patient presented to hospital with complaints of progressive abdominal distention leading to shortness of breath and early satiety, no abdominal pain, nausea no vomiting, no fever or chills, no bleeding or mental status changes. Patient had an uncomplicated paracentesis of 7 L of clear fluid, findings consistent with portal hypertension, no signs of infection, patient has significant symptomatic relief. No other signs of decompensated cirrhosis. No evidence of coagulopathy, acute liver failure, encephalopathy, bleeding. His has made appointment for Saturday with Dr. Carlson to continue follow-up, we discussed diuretic management for prevention of recurrence as well as the importance of low-sodium diet. Given his stability the patient is stable for discharge and he will follow-up with GI as an outpatient. During his stay the patient was found to have mild hypokalemia hypomagnesemiawhich was replaced prior to discharge, this can be followed as an outpatient. Regarding his chronic medical issues, the patient has a history of hemochromatosis with regular bloodletting. Patient has a history of hypertension, blood pressure has been slightly elevated, given plan to start spironolactone and furosemide, amlodipine will be discontinued. Patient is on nadolol for portal hypertension which can continue. Has history of osteoarthritis on meloxicam, he was counseled about the use of NSAIDs given liver disease, she will follow-up with PCP regarding this. No other acute issues were observed, the patient is stable for discharge, follow-up by outpatient provider. Providers consulted: None Procedures done: XR Chest 2 Views Final Result FINDINGS/IMPRESSION: NO ACUTE FINDINGS. Normal heart size and pulmonary vascularity. Lungs are clear and costophrenic angles are sharp. No acute osseous abnormality. -------- FINAL REPORT -------- Dictated By: Sushma Callejas Dictated Date: 10/29/2024 14:43 ET Assigned Physician: Sushma Callejas Reviewed and Electronically Signed By: Sushma Callejas Signed Date: 10/29/2024 14:44 ET Workstation ID: [id number] Transcribed By: Self Edit Transcribed Date: 10/29/2024 14:43 ET US Paracentesis w Image Guidance Preliminary Result Successful paracentesis of 7 L of clear yellow fluid without complications. Patient receiving IV infusion of 50 g 25% albumin in the ED. -------- PRELIMINARY REPORT -------- Dictated By: Priscilla Garzon Dictated Date: 10/29/2024 15:52 ET Assigned Physician: Jerod Rudolph Reviewed and Electronically Signed By: Signed Date: ET Workstation ID: [id number] Transcribed By: Self Edit Transcribed Date: 10/29/2024 15:52 ET Resident/PA/RESERVOIR ENGINEER: Priscilla Garzon CT Abdomen Pelvis w Contrast Final Result Cirrhosis with sequelae of portal hypertension with large amount of abdominal ascites. Nonocclusive portal vein thrombosis. Incidental findings as noted above. -------- FINAL REPORT -------- Dictated By: Sushma Callejas Dictated Date: 10/29/2024 12:18 ET Assigned Physician: Sushma Callejas Reviewed and Electronically Signed By: Sushma Callejas Signed Date: 10/29/2024 12:30 ET Workstation ID: [id number] Transcribed By: Self Edit Transcribed Date: 10/29/2024 12:18 ET Condition upon discharge Patient was seen with at bedside, he feels much better, his appetite is coming back, he has noabdominal pain, his breathing is much improved, he is fully independent Visit Vitals BP (!) 153/85 (BP Location: Right arm, Patient Position: Lying) Pulse 55 Temp 36.4 ??C (97.5 ??F) (Temporal) Resp 16 Temp (24hrs), Av.4 ??C (97.5 ??F), Min:36.2 ??C (97.2 ??F), Max:36.6 ??C (97.9 ??F) Patient is alert, anicteric, no JVD, moist oral mucosa, lungs clear to auscultation, diminished breath sounds in the bases, abdomen slightly distended, no shifting dullness, no peritoneal signs, normal bowel sounds, extremities without clubbing, cyanosis or edema.. Patient is fully alert oriented, no asterixis, grossly nonfocal. . Body mass index is 23.11 kg/m??. No results found for: PTWT , PTHT 60 Minutes were spent in patient care including [id number] time, chart review, discussion with providers, documentation, order entry administrator. Moderate complexity medical decision making. This note was written using [employer] speech recognition software which is prone to typographical errors. If questions occur please do not hesitate to call this provider. Follow-Up Instructions and Recommendations Primary care provider (PCP) Lou Jolley MD [address] [facility] [address] Wilbert Carlson MD [address] [facility] [address] [facility] [address] Discharge Procedure Orders Discharge Diet: 2 gm Sodium Retriction Diet Order Specific Question Answer Comments Discharge diet you should follow at home 2 gm Sodium Retriction Diet No restrictions, resume your usual activities Primary care provider (PCP) Order Specific Question Answer Comments Follow-Up Within: 7 Provider: Order Specific Question Answer Comments Follow-Up On: 11/02/2024 There are no outpatient Patient Instructions on file for this admission. Discharge Medications Your medication list START taking these medications Instructions Last Dose Given Next Dose Due acetaminophen 325 mg tablet Commonly known as: TYLENOL Take 2 tablets (650 mg total) by mouth every 8 (eight) hours if needed for mild pain or fever - temperature GREATER than 38 C (100.4 F) for up to 7 days. furosemide 20 mg tablet Commonly known as: LASIX Take 1 tablet (20 mg total) by mouth 1 (one) time each day in the morning. spironolactone 50 mg tablet Commonly known as: ALDACTONE Take 1 tablet (50 mg total) by mouth 1 (one) time each day in the morning. CONTINUE taking these medications Instructions Last Dose Given Next Dose Due atorvastatin 20 mg tablet Commonly known as: LIPITOR Take 1 tablet (20 mg total) by mouth 1 (one) time each day. cholecalciferol 25 mcg (1,000 unit) tablet Commonly known as: VITAMIN D-3 Take 1 tablet (1,000 Units total) by mouth 1 (one) time each day. nadoloL 40 mg tablet Commonly known as: CORGARD Take 1 tablet (40 mg total) by mouth 1 (one) time each day. omeprazole [address] capsule Commonly known as: PriLOSEC Take 1 capsule (20 mg total) by mouth 1 (one) time each day. Do not crush or chew. tamsulosin 0.4 mg 24 hr capsule Commonly known as: FLOMAX Take 1 capsule (0.4 mg total) by mouth 1 (one) time each day. trospium 60 mg capsule,extended release 24hr Take 1 capsule (60 mg total) by mouth 1 (one) time each day. STOP taking these medications amLODIPine 2.5 mg tablet Commonly known as: NORVASC meloxicam 7.5 mg tablet Commonly known as: MOBIC Where to Get Your Medications These medications were sent to [facility]/pharmacy #[id number] - [place] - [address] [place] [address] Hours: 24-hours acetaminophen 325 mg tablet furosemide 20 mg tablet spironolactone 50 mg tablet documented in this encounter Discharge Instructions * Discharge Instructions* Raman Guajardo MD - 10/30/2024 3:29 PM EST Follow-up with Dr. Carlson on Saturday as already scheduled Please note the changes made to your medications Weight yourself every morning after first void, keep a log and show to your outpatient provider during each visit. Talk to Dr. Carlson regarding how to set up outpatient paracentesis before you become symptomatic. It is very important to stick to a low-sodium diet. * Attachments The following attachments cannot be sent through Care Everywhere. * Ascites (Scottish) * Spironolactone Oral Tablet (SPIRONOLACTONE - ORAL) (Scottish) * Furosemide Oral Tablet (FUROSEMIDE - ORAL) (Scottish) * Paracentesis: General Info (Scottish) * Low Sodium Diet (Scottish) documented in this encounter Medications at Time of Discharge acetaminophen (TYLENOL) 325 mg tablet Take 2 tablets (650 mg total) by mouth every 8 (eight) hours if needed for mild pain or fever - temperature GREATER than 38 C (100.4 F) for up to 7 days. 30 tablet 10/30/2024 atorvastatin (LIPITOR) 20 mg tablet Take 1 tablet (20 mg total) by mouth 1 (one) time each day. 03/30/2024 cholecalciferol (VITAMIN D-3) 25 mcg (1,000 unit) tablet Take 1 tablet (1,000 Units total) by mouth 1 (one) time each day. nadoloL (CORGARD) 40 mg tablet Take 1 tablet (40 mg total) by mouth 1 (one) time each day. 07/27/2024 omeprazole (PriLOSEC) [address] capsuleIndication s:Gastroesophagea l reflux disease without esophagitis Take 1 capsule (20 mg total) by mouth 1 (one) time each day. Do not crush or chew. 90 each 10/23/2024 tamsulosin (FLOMAX) 0.4 mg 24 hr capsule Take 1 capsule (0.4 mg total) by mouth 1 (one) time each day. 08/18/2024 trospium 60 mg capsule,extended release 24hr Take 1 capsule (60 mg total) by mouth 1 (one) time each day. 08/02/2024 furosemide (LASIX) 20 mg tablet Take 1 tablet (20 mg total) by mouth 1 (one) time each day in the morning. 30 each 10/30/2024 5 spironolactone (ALDACTONE) 50 mg tablet Take 1 tablet (50 mg total) by mouth 1 (one) time each day in the morning. 30 each 10/30/2024 5 documented as of this encounter Ordered Prescriptions Prescription Sig Dispense Quantity Refills Last Filled Start Date End Date furosemide (LASIX) 20 mg tablet Take 1 tablet (20 mg total) by mouth 1 (one) time each day in the morning. 30 each 10/30/2024 5 spironolactone (ALDACTONE) 50 mg tablet Take 1 tablet (50 mg total) by mouth 1 (one) time each day in the morning. 30 each 10/30/2024 5 acetaminophen (TYLENOL) 325 mg tablet Take 2 tablets (650 mg total) by mouth every 8 (eight) hours if needed for mild pain or fever - temperature GREATER than 38 C (100.4 F) for up to 7 days. 30 tablet 10/30/2024 5 documented in this encounter Discharge Disposition Disposition Code Departure Means Destination Comment s Home or Self Care documented in this encounter Progress Notes * Jocelyne Knight RN - 10/30/2024 4:26 PM EST Pt medically cleared for discharge. Dispo is home self-care. Pt spouse at bedside to provide transportation. * Rosario Mcghee RN - 10/30/2024 3:39 PM EST Problem: Skin Integrity: Skin Integrity Impairment Goal: Skin integrity will improve Outcome: Adequate for Discharge Goals: Discharge home Clinical Goals for the Shift: none Identify possible barriers to meeting goals/advancing plan of care: None Stability of the patient: Moderately Stable - Low risk of patient condition declining or worsening End of Shift Summary: Pt alert and oriented x3. VSS. PT reports feeling much better than arrival with abdominal girth felt to be much smaller, less distended, less firm. LBM this morning. Pt tolerating solid food, drinking well, ambulating well in room. Denies any complaints. Discharging home with . * Morris Cortés - 10/30/2024 3:19 PM EST SPIRITUAL CARE Date/Time:10/30/24 at 3:19 PM EST Type of Visit: Initial Visit Reason for Visit: Spiritual/Emotional Support Time Spent: 5 Minutes Location: [address] [place] [address] Sacramental Encounters: 0 Spiritual Distress Assessment: Spiritual Distress Assessment at beginning of visit Meaning - Overall Life Balance: No evidence of unmet spiritual need Transcendence: No evidence of unmet spiritual need Values - Acknowledgement: No evidence of unmet spiritual need Values - Control: No evidence of unmet spiritual need Psycho-Social Identity: No evidence of unmet spiritual need SDAT Beginning of Visit Average Score: 0 Spiritual Distress Assessment at end of visit Meaning - Overall Life Balance: No evidence of unmet spiritual need Transcendence: No evidence of unmet spiritual need Values - Acknowledgement: No evidence of unmet spiritual need Values - Control: No evidence of unmet spiritual need Psycho-Social Identity: No evidence of unmet spiritual need SDAT End of Visit Average Score: 0 Spiritual Assessment/Distress Spiritual Care Assessment: Assessment: Patient is bhupenrda to be discharged soon and reports no unmet spiritual needs. Intervention: NE Spiritual Care Interventions : explored spiritual needs and resources, listened empathically, provided hospitality, and provided silent and supportive presence Outcomes: relational resources utilized Plan of Care: No Follow up required. Please re-consult if new need comes up. *Reference: Spiritual Distress Assessment Tool: The SDAT is a clinical tool used by chaplains to identify unmet spiritual and emotional needs that can impact Goals of Care in the following categories: Spiritual Distress Assessment Legend Spiritual Needs Related Questions Meaning Are you having difficulties coping with what is happening to your now? Does your hospitalization have any repercussions on the way you live usually? Transcendence Do you have a particular confucianist, doris, or spirituality? Is your confucianist/spirituality/doris challenged by what is happening to you now? Values Do you think that the health professionals caring for you know you well enough? Do you feel that you are participating in the decisions made about your care? Psycho-Social Identity Do you have any worries or difficulties regarding your family or other persons close to you? Do you feel lonely? Do you have links to your doris community? SCALE 0= no evidence of unmet spiritual needs 1= some evidence of unmet spiritual needs 2= substantial evidence of unmet spiritual needs 3= evidence of severe unmet spiritual needs * Jocelyne Knight RN - 10/30/2024 2:45 PM EST 10/30/24 0245 Initial Transition Plan Initial Transition Plan Home Discharge Planning Living Arrangements Spouse/significant other Type of Residence Private residence Assistive Devices None Support Systems Spouse/significant other Medication Coverage Has Med Coverage Under Insurance Plan Yes Medication Affordability No concerns related to payment for meds Informed Choice Informed Choice Given? Yes MICHEL: 10/30-10/31 Barrier: s/p paracentesis, replace electrolytes Plan: home self-care * Lori Mccormack RN - 10/30/2024 2:30 AM EST Goals: Clinical Goals for the Shift: none Identify possible barriers to meeting goals/advancing plan of care: elevated BP Stability of the patient: Moderately Stable - Low risk of patient condition declining or worsening End of Shift Summary: Pleasant, independent in room, no issues noted * Pamela Alvarado RN - 10/29/2024 7:22 PM EST ED RN HANDOFF (All [place] Below Must Be Completed) Reason/Diagnosis for Admission: Ascites Type of Admission: [x] Medsurg, [] Telemetry Already in a Hospital Bed: [] Yes / [x] No Room Considerations/Precautions (ex: fever, diarrhea, or any infectious concerns): [] Yes / [x] No Sales Engagement Manager: [] Yes / [x] No If YES, Cardiac Rhythm: [] NSR, [] SB, [] ST, [] A-FIB, [] A-Flutter, [] Pacemaker, [] 1st Degree HB, [] 2nd Degree HB, [] 3rd Degree HB Reason for Sales Engagement Manager: VS: Visit Vitals BP (!) 144/93 Pulse 69 Temp 37.1 ??C (98.8 ??F) Resp 17 Ht 1.829 m (72 ) Wt 86.2 kg (190 lb) SpO2 96% BMI 25.77 kg/m?? Smoking Status Never BSA 2.08 m?? Current Mental Status: A/O x [x]4, []3, []2, []1 Current Ambulation Status: Ad luis IV Access: [x] Yes / [] No Field IV present: [] Yes / [x] No Hx of Violence: [] Yes / [x] No / [] Unknown Fall Risk:[] Yes / [x] No Yellow Bracelet Applied [] Yes / [x] No Yellow Socks Applied [] Yes / [x] No Patient Belongings inventoried and BL completed: [x] Yes / [] No Patient belongings stored in the security closet: [] Yes (If Yes please supply Security bag #): [x] No Patient Medications stored in Pharmacy: [] Yes (If Yes please supply Medication Security bag #): [x] No ED Summary of Care: S/P Paracentesis 7L off. Submitted by and Phone Extension: [phone] * Criss Clark RN - 10/29/2024 3:46 PM EST Pt up to bathroom to have a BM, reports diarrhea. * Criss Clark RN - 10/29/2024 1:23 PM EST at bedside, ultrasound here to bring patient for paracentesis. Pt denies alcohol use states hehas hemochromatosis. * Pamela Alvarado RN - 10/29/2024 6:56 AM EST Patient states hx liver dz, went to urgent care yesterday and dx with ascites. Patient decided to come today for increased sob and bloating. * Jordan Miller MD - 10/29/2024 6:53 AM EST HPI Chief Complaint Patient presents with Bloated HX ASCITES 73-year-old male with a past medical history as below, now presents with a chief complaint of abdominal distention. Patient reports that he is having progressive abdominal distention for the past fewmonths which has been progressively declining and worsening. In the last few weeks he has noticed that the abdomen is significantly distended, with mild lower extremity swelling which is bilateral, he is having shortness of breath on typically worsened on exertion. 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 He has underlying diagnosed cirrhosiswithout known ascites, which she reports is likely from the hemochromatosis disease that he has. Denies any complaints of fevers, chills, chest pain, shortness of breath at rest. He does report that he gets nauseous but denies any vomiting. He does have a known umbilical hernia. There is no tenderness around the umbilical hernia that he reports. He reports his bowel movements have been somewhat re duced recently. Past Medical History: No date: Arthritis No date: GERD (gastroesophageal reflux disease) No date: Hemochromatosis No date: Hypertension No date: Liver disease History provided by: Patient Josh Coma Scale Score: 15 Patient History Past Medical History: Diagnosis Date Arthritis GERD (gastroesophageal reflux disease) Hemochromatosis Hypertension Liver disease Past Surgical History: Procedure Laterality Date COLONOSCOPY [...] SURGERY Right replacement KNEE SURGERY Right replacement No family history on file. Social History Tobacco Use Smoking status: Never Smokeless tobacco: Not on file Substance Use Topics Alcohol use: Not Currently Drug use: Yes Frequency: 4.0 times per week Types: Marijuana/Cannabis Review of Systems Review of Systems Constitutional: Negative. HENT: Negative. Respiratory: Negative. Cardiovascular: Negative. Gastrointestinal: Positive for abdominal distention. Skin: Negative. Physical Exam ED Triage Vitals [10/29/24 0656] Temp Heart Rate Resp BP 36.5 ??C (97.7 ??F) 67 18 (!) 175/98 SpO2 Temp Source Heart Rate Source Patient Position 97 % Oral Monitor Sitting BP Location FiO2 (%) Right arm -- Physical Exam Constitutional: General: He is not in acute distress. Appearance: Normal appearance. He is not ill-appearing or toxic-appearing. HENT: Head: Normocephalic and atraumatic. Mouth/Throat: Mouth: Mucous membranes are moist. Eyes: Extraocular Movements: Extraocular movements intact. Conjunctiva/sclera: Conjunctivae normal. Cardiovascular: Rate and Rhythm: Normal rate and regular rhythm. Pulses: Normal pulses. Pulmonary: Effort: Pulmonary effort is normal. No respiratory distress. Breath sounds: Normal breath sounds. Abdominal: General: There is distension. Palpations: Abdomen is soft. Tenderness: There is no abdominal tenderness. Musculoskeletal: General: Normal range of motion. Cervical back: Normal range of motion and neck supple. Right lower leg: No edema. Left lower leg: No edema. Skin: General: Skin is warm. Capillary Refill: Capillary refill takes less than 2 seconds. Neurological: General: No focal deficit present. Mental Status: He is alert and oriented to person, place, and time. Mental status is at baseline. Psychiatric: Mood and Affect: Mood normal. ED Course & MDM Clinical Impressions as of 10/29/24 1343 Other ascites Abdominal distension Medical Decision Making 73-year-old male found to have large abdominal ascites. He has abdominal distention. Ascites is newfor him. Patient is also complaining of abdominal pain. He is afebrile, he does not have an elevated white blood cell count. We will admit him for new onset ascites, he will go to IR for paracentesis. He may need an albumin bolus. He is currently at IR, and they report that he they might be able todrain about 6-7 L. Sign out given to Dr. Davis. Procedures Jordan Miller MD 10/29/24 1147 Jordan Miller MD 10/29/24 1348 Jordan Miller MD 11/02/24 1639 documented in this encounter H&P Notes * Kristen Campa NP - 10/29/2024 4:42 PM EST Images from the original note were not included. History of present illness: This is a 73-year-old male with the below mentioned medical problems including liver cirrhosis, hemochromatosis cytosis, esophageal varices, portal hypertension follows with Dr. Carlson. Patient states that he has noticed that his abdomen is getting really big and he was having some discomfort felt bloated not hungry so he went to urgent care yesterday and they told him he had ascites and sent himto the emergency room. He came in and noted that there was too many people in the waiting room so they suggested he come back today which she did. Paracentesis has been ordered. At the time of this interview he is now post paracentesis with 7 L off he states he feels much better and has no abdominal pain. Review of Systems: He complained of abdominal discomfort not specific pain just feeling of bloated he thought it washis hernia initially. He has had no fever shaking chills no shortness of breath no cough no urinarysymptoms no lower extremity edema. Past medical history: Hypertension Liver cirrhosis question from hemochromatosis Portal hypertension Esophageal varices Hyperlipidemia no longer on atorvastatin Umbilical hernia Urethral stricture Past surgical history: Right hip replacement Right knee replacement in 2003 Family history: His father of a heart attack in his 70s. 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 States that when he was a younger man he drinks beer but he does not drink at all now. No illicit drug use He is independent in activities of daily living. Allergies: Chlorpromazine Home medications: Amlodipine 2.5 mg daily Vitamin D3 25 mcg daily Meloxicam 7.5 mg daily for arthritis Nadolol 40 mg daily Prilosec 20 mg daily Flomax 0.4 mg daily trospium 60 mg daily Physical Exam: GENERAL: This is an elderly male seen in the emergency room he is resting quite comfortably on a stretcher not in acute distress. HEENT: Patient is normocephalic atraumatic pupils round and reactive no scleral icterus EOMI. Oral mucous membranes are pink and moist neck is supple without JVD. Trachea is midline CARDIAC: S1 and S2 heard without murmurs rubs gallops. RESPIRATORY: Lungs are clear to auscultation. No wheezing rales or rhonchi. No accessory muscle use. GI: Abdomen is large but soft no guarding no rebound tenderness bowel sounds are present. : Deferred EXTREMITIES: No asymmetrical edema distal pulses are palpable. Feet are warm and well perfused withcapillary refill less than 2 seconds. NEUROLOGICAL: Patient is alert and oriented. Cranial nerves II through XII are intact without focaldeficits. PROCEDURE: CT ABDOMEN/PELVIS WITH CONTRAST INDICATION: Abdominal distension TECHNIQUE: CT of the abdomen and pelvis following the intravenous administration of 90cc Isovue 370. Multiplanar reformats. The examination was performed utilizing dose reduction techniques. Total DLP 1587 COMPARISON: No priors available. FINDINGS: LOWER THORAX: Lung bases are clear. HEPATOBILIARY: Nodular appearance of the liver compatible with cirrhosis. Punctate enhancing focus specific could represent a flash filling hemangioma. If there is persistent concern could recommend a triple phase CT. There is chronic, nonocclusive portal vein thrombosis along the wall of the main portal vein and in the right main portal vein. Cholelithiasis. Gallbladder wall thickening presumably related to hypoalbuminemia. SPLEEN: Mild splenomegaly. PANCREAS: No focal mass or ductal dilatation. ADRENALS: No nodules. KIDNEYS/URETERS: Punctate stone in the upper pole of the right kidney. Renal cysts. No hydronephrosis. PELVIC ORGANS/BLADDER: Mild bladder distention. PERITONEUM / RETROPERITONEUM: Large amount of ascites. No free air. VESSELS: Scattered atherosclerotic calcifications throughout the aorta and its major branches. No aneurysm. Small abdominal varices. GI TRACT: Multifocal areas of colonic wall thickening presumably due to under distention/portal hypertension. Reticulosis without evidence for acute diverticulitis. BONES AND SOFT TISSUES: Scattered degenerative changes seen throughout the bones. Right hip arthroplasty. Small amount of fluid at the umbilicus. Trace diffuse soft tissue edema. 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 IMPRESSION: Cirrhosis with sequelae of portal hypertension with large amount of abdominal ascites. Nonocclusive portal vein thrombosis. Incidental findings as noted above. -------- FINAL REPORT -------- Dictated By: Sushma Callejas Dictated Date: 10/29/2024 12:18 ET Assigned Physician: Sushma Callejas Assessment and Plan: 1. Ascites. Status post paracentesis with 7 L of fluid removed. He is currently receiving albumin. Fluid studies showed a glucose of 112 LDL 50 pH of 8.5 protein of 1.4 Culture is pending. 2. Liver cirrhosis will continue his nadolol he is not on furosemide at this point. He does have esophageal varices and portal hypertension. Follows with Dr. Carlson 3. Hypertension will continue amlodipine. 4. Urethral stricture we will continue his Flomax. DVT prophylaxis will be sequential compression devices and we will try to get him sitting in a chair. CODE STATUS: Full code Healthcare proxy: No formal designation but he lists his Rylee Griffin [phone] Case and plan discussed with Dr. Davis I spent greater than 35 minutes evaluating the patient reviewing diagnostics labs medications and formulating plan of care. DVT prophylaxis: Cosigned by Nicholas Davis MD at 11/04/2024 9:52 AM EST Associated attestation - Nicholas Davis MD - 11/04/2024 9:52 AM EST This is a split/shared visit with Kristen Campa NP. I personally performed the medical decision making (MDM) for the care of this patient on 10/29/24 as documented below Patient was discussed with Advanced Practice Provider. I personally saw and examined the patient atbedside. I independently obtained further history and reviewed significant updates, labs and imaging. I also contacted pertinent consultants in order to facilitate patient's medical care. Otherwise, I agree with the documentation and plan as outlined in the note below. Nicholas Davis MD 11/04/24 9:51 AM EST documented in this encounter Plan of Treatment Upcoming Encounters Date Type Department Care Team (Late st Contact Info) Description 01/14/2025 8:00 AM EDT Office Visit Gastroenterology - [address] [place] [id number] Wilbert Carlson MD [address] [place] [address] Pending Results Name Type Priority Associated Diagnoses Date /Time US Paracentesis w Image Guidance Imaging STAT 10/29/2024 2:30 PM EST documented as of this encounter Procedures Procedure Name Priority Date/Time Associated Diagnosis Comments ECG ANNOTATED 10/31/2024 PLATELET COUNT Routine 10/30/2024 1:03 PM EST EXTRA TUBES Routine 10/30/2024 1:00 PM EST LT BLUE - NA CITRATE Routine 10/30/2024 1:00 PM EST CBC WITH AUTO DIFFERENTIAL Routine 10/30/2024 7:03 AM EST CBC AND DIFFERENTIAL Routine 10/30/2024 7:03 AM EST MAGNESIUM Routine 10/30/2024 7:03 AM EST BASIC METABOLIC PANEL Routine 10/30/2024 7:03 AM EST XR CHEST 2 VIEWS STAT 10/29/2024 2:35 PM EST CELL COUNT WITH REFLEX DIFFERENTIAL, BODY FLUID STAT 10/29/2024 2:33 PM EST CULTURE BODY FLUID WITH GRAM STAIN STAT 10/29/2024 2:33 PM EST DIFFERENTIAL BODY FLUID STAT 10/29/2024 2:33 PM EST PROTEIN, BODY FLUID STAT 10/29/2024 2:33 PM EST LACTATE DEHYDROGENASE, BODY FLUID STAT 10/29/2024 2:33 PM EST GLUCOSE, BODY FLUID STAT 10/29/2024 2:33 PM EST PH, BODY FLUID STAT 10/29/2024 2:33 PM EST US PARACENTESIS W IMAGE GUIDANCE STAT 10/29/2024 2:30 PM EST Procedure Note - Jerod Rudolph MD / Priscilal Garzon PA - 10/29/2024 2:30 PM ESTThis note is in progress. HISTORY: Large volume ascites. TECHNIQUE: After written informed consent was obtained the patient wasplaced supine on the ultrasound stretcher and multiple images wereobtained for characterization and localization of ascites. The skin wasmarked, prepped and draped in the usual sterile fashion. 2% lidocaine wasused as local anesthetic. A paracentesis needle was advanced under gentlesuction. When fluid aspirated the paracentesis catheter was threaded overthe needle into the ascitic fluid. The needle was removed and the catheterwas attached to tubing and then vacuum bottles. After completion ofdrainage the catheter was removed and a bandage was applied. The patienttolerated the procedure well and left the department in stable conditionwithout any immediate complications. FINDINGS: Initial ultrasound images demonstrate large volume ascites. Pocket inright lower quadrant localized for drainage. IMPRESSION: Successful paracentesis of 7 L of clear yellow fluid withoutcomplications. Patient receiving IV infusion of 50 g 25% albumin in theED. -------- PRELIMINARY REPORT -------- Dictated By: Priscilla Garzon Dictated Date: 10/29/2024 15:52 ET Assigned Physician: Jerod Rudolph Reviewed and Electronically Signed By: Signed Date: ET Workstation ID: [id number] Transcribed By: Self Edit Transcribed Date: 10/29/2024 15:52 ET Resident/PA/RESERVOIR ENGINEER: Priscilla Garzon ACTIVATED PARTIAL THROMBOPLASTIN TIME STAT 10/29/2024 1:21 PM EST PROTHROMBIN TIME WITH INR STAT 10/29/2024 1:21 PM EST B-TYPE NATRIURETIC PEPTIDE STAT 10/29/2024 1:[address] ABDOMEN PELVIS W CONTRAST STAT 10/29/2024 11:50 AM EST CBC WITH AUTO DIFFERENTIAL STAT 10/29/2024 8:42 AM EST CBC AND DIFFERENTIAL STAT 10/29/2024 8:42 AM EST LIPASE STAT 10/29/2024 8:42 AM EST COMPREHENSIVE METABOLIC PANEL STAT 10/29/2024 8:42 AM EST ECG 12-LEAD STAT 10/29/2024 7:06 AM EST documented in this encounter Results * ECG-Annotated (10/31/2024) us Provider Onbase MD ECG ORDERABLES Final Result * Platelet count (10/30/2024 1:03 PM EST) Platelets 110 K/mcL 10/30/2024 2:00 PM EST [facility] MPV 9.5 FL 10/30/2024 2:00 PM EST [facility] Blood Venous blood specimen / Unknown Venipuncture / Unknown 10/30/2024 1:03 PM EST 10/30/2024 1:29 PM EST Narrative [facility] - 10/30/2024 2:00 PM EST Platelet count performed on citrated blue top tube. us Raman Guajardo MD LAB BLOOD ORDERABLES F inal Result [facility] [address] [place] [address], [place] [phone] * Light blue tube (10/30/2024 1:00 PM EST) Pathologist [facility] Extra Tube Hold for add-ons. 10/30/2024 3:02 PM EST [facility] Comment:Auto resulted. Blood Venous blood specimen / Unknown 10/30/2024 1:00 PM EST 10/30/2024 1:29 PM EST us Raman Guajardo MD LAB BLOOD ORDERABLES F inal Result [facility] [address] [place] [address], [place] [phone] * (ABNORMAL) CBC auto differential (10/30/2024 7:03 AM EST) [facility] WBC 4.1(L) 4.8 - 10.8 K/mcL LAB HEMETOLOGY METHOD 10/30/2024 8:31 AM [facility] RBC 4.10(L) 4.50 - 5.50 M/mcL LAB HEMETOLOGY METHOD 10/30/2024 8:31 AM [facility] Hemoglobin 12.4(L) 13.5 - 17.5 g/dL LAB HEMETOLOGY METHOD 10/30/2024 8:31 AM [facility] Hematocrit 38.0(L) 42.0 - 54.0 % LAB HEMETOLOGY METHOD 10/30/2024 8:31 AM [facility] MCV 93.6 79.0 - 98.0 FL LAB HEMETOLOGY METHOD 10/30/2024 8:31 AM [facility] MCH 30.5 27.0 - 32.0 pcg LAB HEMETOLOGY METHOD 10/30/2024 8:31 AM [facility] MCHC 32.6 32.0 - 37.0 g/dL LAB HEMETOLOGY METHOD 10/30/2024 8:31 AM [facility] RDW 13.3 11.0 - 15.0 % LAB HEMETOLOGY METHOD 10/30/2024 8:31 AM [facility] Platelets 10/30/2024 8:31 AM [facility] Comment:Not measured. Unable to quantitate due to platelet clumping MPV 11.6(H) 7.0 - 11.0 FL LAB HEMETOLOGY METHOD 10/30/2024 8:31 AM [facility] NRBC 0.0 <1.0 % LAB HEMETOLOGY METHOD 10/30/2024 8:31 AM [facility] NRBC Absolute 0.00 <0.10 K/mcL LAB HEMETOLOGY METHOD 10/30/2024 8:31 AM [facility] Neutrophils Relative 61.1 % LAB HEMETOLOGY METHOD 10/30/2024 8:31 AM [facility] Lymphocytes Relative 28.4 % LAB HEMETOLOGY METHOD 10/30/2024 8:31 AM [facility] Monocytes Relative 8.1 % LAB HEMETOLOGY METHOD 10/30/2024 8:31 AM [facility] Eosinophils Relative 1.2 % LAB HEMETOLOGY METHOD 10/30/2024 8:31 AM [facility] Basophils Relative 0.7 % LAB HEMETOLOGY METHOD 10/30/2024 8:31 AM [facility] Immature Granulocytes Relative 0.5 % LAB HEMETOLOGY METHOD 10/30/2024 8:31 AM [facility] Neutrophils Absolute 2.50 1.50 - 7.00 K/mcL LAB HEMETOLOGY METHOD 10/30/2024 8:31 AM [facility] Lymphocytes Absolute 1.16 1.00 - 5.00 K/mcL LAB HEMETOLOGY METHOD 10/30/2024 8:31 AM [facility] Monocytes Absolute 0.33 0.20 - 1.00 K/mcL LAB HEMETOLOGY METHOD 10/30/2024 8:31 AM [facility] Eosinophils Absolute 0.05 0.00 - 0.50 K/mcL LAB HEMETOLOGY METHOD 10/30/2024 8:31 AM [facility] Basophils Absolute 0.03 0.00 - 0.20 K/mcL LAB HEMETOLOGY METHOD 10/30/2024 8:31 AM [facility] Immature Granulocytes Absolute 0.02 0.00 - 0.03 K/mcL LAB HEMETOLOGY METHOD 10/30/2024 8:31 AM [facility] Blood Venous blood specimen / Unknown Venipuncture / Unknown 10/30/2024 7:03 AM EST 10/30/2024 7:34 AM EST us Nicholas Davis MD LAB BLOOD ORDERABLES Final Re sult Performing Organization Address [facility]/ZIP Co de Phone Number [facility] [address] [place] [address], [place] [phone] * (ABNORMAL) Magnesium (10/30/2024 7:03 AM EST) [facility] Magnesium 1.8(L) 1.9 - 2.6 mg/dL LAB CHEMISTRY METHOD 10/30/2024 8:07 AM EST [facility] Blood Venous blood specimen / Unknown Venipuncture / Unknown 10/30/2024 7:03 AM EST 10/30/2024 7:32 AM EST us Nicholas Davis MD LAB BLOOD ORDERABLES Final Re sult Performing Organization Address [facility]/ZIP Co de Phone Number [facility] [address] [place] [address], [place] [phone] * (ABNORMAL) Basic metabolic panel (10/30/2024 7:03 AM EST) [facility] Sodium 139 133 - 145 mmol/L LAB CHEMISTRY METHOD 10/30/2024 8:07 AM EST [facility] Potassium 3.4(L) 3.5 - 5.5 mmol/L LAB CHEMISTRY METHOD 10/30/2024 8:07 AM EST [facility] Chloride 107 96 - 110 mmol/L LAB CHEMISTRY METHOD 10/30/2024 8:07 AM EST [facility] CO2 28 21 - 32 mmol/L LAB CHEMISTRY METHOD 10/30/2024 8:07 AM [facility] Anion Gap 4 3 - 11 LAB CHEMISTRY METHOD 10/30/2024 8:07 AM [facility] Glucose 94 70 - 100 mg/dL LAB CHEMISTRY METHOD 10/30/2024 8:07 AM [facility] BUN 10 5 - 25 mg/dL LAB CHEMISTRY METHOD 10/30/2024 8:07 AM [facility] Creatinine 0.69(L) 0.70 - 1.30 mg/dL LAB CHEMISTRY METHOD 10/30/2024 8:07 AM [facility] eGFR 99 >=60 mL/min/1. 73m2 LAB CHEMISTRY METHOD 10/30/2024 8:07 AM [facility] Comment:Calculation based on the??Chronic Kidney Disease Epidemiology Collaboration (CKD-EPI) equation refit??without adjustment for race. BUN/Creatinine Ratio 14.5 LAB CHEMISTRY METHOD 10/30/2024 8:07 AM [facility] Calcium 8.8 8.5 - 10.5 mg/dL LAB CHEMISTRY METHOD 10/30/2024 8:07 AM [facility] Blood Venous blood specimen / Unknown Venipuncture / Unknown 10/30/2024 7:03 AM EST 10/30/2024 7:32 AM EST us Nicholas Davis MD LAB BLOOD ORDERABLES Final Re sult [facility] [address] [place] [address], * XR Chest 2 Views (10/29/2024 2:35 PM EST) Anatomical Region Laterality Modality Body Radiographic Mami ging 10/29/2024 2:43 PM EST Impressions 10/29/2024 2:44 PM EST FINDINGS/IMPRESSION: NO ACUTE FINDINGS. Normal heart size and pulmonary vascularity. ??Lungs are clear and costophrenic angles are sharp. ??No acute osseous abnormality. -------- FINAL REPORT -------- Dictated By: Sushma Callejas Dictated Date: 10/29/2024 14:43 ET Assigned Physician: Sushma Callejas Reviewed and Electronically Signed By: Sushma Callejas Signed Date: 10/29/2024 14:44 ET Workstation ID: [id number] Transcribed By: Self Edit Transcribed Date: 10/29/2024 14:43 ET Narrative 10/29/2024 2:44 PM EST XR CHEST 2 VIEWS INDICATION: Shortness of breath (Ped 0-18y) TECHNIQUE: XR CHEST 2 VIEWS COMPARISON: No priors available. Procedure Note Sushma Callejas MD - 10/29/2024 XR CHEST 2 VIEWS INDICATION: Shortness of breath (Ped 0-18y) TECHNIQUE: XR CHEST 2 VIEWS COMPARISON: No priors available. IMPRESSION: FINDINGS/IMPRESSION: NO ACUTE FINDINGS. Normal heart size and pulmonary vascularity. Lungs are clear andcostophrenic angles are sharp. No acute osseous abnormality. -------- FINAL REPORT -------- Dictated By: Sushma Callejas Dictated Date: 10/29/2024 14:43 ET Assigned Physician: Sushma Callejas Reviewed and Electronically Signed By: Sushma Callejas Signed Date: 10/29/2024 14:44 ET Workstation ID: [id number] Transcribed By: Self Edit Transcribed Date: 10/29/2024 14:43 ET Jordan Miller MD IMG XR PROCEDURES Final Result * Differential body fluid (10/29/2024 2:33 PM EST) Fluid Neutrophils % 6 % 10/29/2024 5:27 PM [facility] Fluid Lymphocytes % 50 % 10/29/2024 5:27 PM [facility] Fluid Monocytes/Macrop hages 44 % 10/29/2024 5:27 PM [facility] Fluid Eosinophils % 0 % 10/29/2024 5:27 PM [facility] Fluid Basophils % 0 % 10/29/2024 5:27 PM [facility] Fluid Other Cells % 0 % 10/29/2024 5:27 PM [facility] Peritoneal Fluid Non-blood Collection / Unknown 10/29/2024 2:33 PM EST 10/29/2024 2:45 PM EST [facility] - 10/29/2024 5:27 PM EST No reference ranges have been established for body fluids. Clinical correlation recommended. Jordan Miller MD LAB BODY FLUIDS AND STOOLS ORDE RABSYDNEE Final Result Performing Organization Address [facility] Co de Phone Number [facility] [address] [place] [address], [place] [phone] * Culture body fluid with gram stain (10/29/2024 2:33 PM EST) Fluid Culture No growth at 3 days LAB MICROBIOLOGY METHOD 11/01/2024 11:07 AM EST [facility] Gram Stain Result No polymorphonuclear leukocytes, No epithelial cells, and No organisms noted 11/01/2024 11:07 AM EST [facility] Ascites (Abdomen) 10/29/2024 2:33 PM EST 10/29/2024 2:45 PM EST [facility] Lisandra Miller MD LAB MICROBIOLOGY - GENERAL ORDJeff RABLES Final Result Performing Organization Address [facility] de Phone Number [facility] [address] [place] [address], [place] [phone] * Protein, body fluid (10/29/2024 2:33 PM EST) Protein, Fluid 1.4 See Comment g/dL LAB CHEMISTRY METHOD 10/29/2024 3:22 PM EST [facility] Ascites 10/29/2024 2:33 PM EST 10/29/2024 2:45 PM EST [facility] - 10/29/2024 3:22 PM EST No reference ranges have been established for body fluids. Clinical correlation recommended. Jordan Galeanael MD LAB BODY FLUIDS AND STOOLS ORDE RABLES Final Result Performing Organization Address [facility]/ZIP Co de Phone Number [facility] [address] [place] [address], [place] [phone] * pH, body fluid (10/29/2024 2:33 PM EST) pH, Fluid 8.5 See Comment pH 10/29/2024 3:51 PM EST [facility] Peritoneal Fluid Non-blood Collection / Unknown 10/29/2024 2:33 PM EST 10/29/2024 2:45 PM EST [facility] - 10/29/2024 3:51 PM EST No reference ranges have been established for body fluids. Clinical correlation recommended. [facility] Lisandra Miller MD LAB BODY FLUIDS AND STOOLS ORDE RABLES Final Result Performing Organization Address [facility] Co de Phone Number [facility] [address] [place] [address], [place] [phone] * Lactate dehydrogenase, body fluid (10/29/2024 2:33 PM EST) LD, Fluid 50 See Comment unit/L LAB CHEMISTRY METHOD 10/29/2024 3:22 PM EST [facility] Ascites Peritoneal cavity structure / Unknown 10/29/2024 2:33 PM EST 10/29/2024 2:45 PM EST [facility] - 10/29/2024 3:22 PM EST No reference ranges have been established for body fluids. Clinical correlation recommended. Jordanjerry Miller MD LAB BODY FLUIDS AND STOOLS ORDE RABLES Final Result Performing Organization Address [facility]/ZIP Co de Phone Number [facility] [address] [place] [address], [place] [phone] * Glucose, body fluid (10/29/2024 2:33 PM EST) Glucose, Fluid 112 See Comment mg/dL LAB CHEMISTRY METHOD 10/29/2024 3:22 PM EST [facility] Ascites 10/29/2024 2:33 PM EST 10/29/2024 2:45 PM EST [facility] - 10/29/2024 3:22 PM EST No reference ranges have been established for body fluids. Clinical correlation recommended. us Jordan Miller MD LAB BODY FLUIDS AND STOOLS CAREY NICHOLS Final Result [facility] [address] [place] [address], [place] [phone] * Cell count with reflex differential, body fluid (10/29/2024 2:33 PM EST) Body Fluid Total Nucleated Cells 230 /mm3 LAB HEMETOLOGY METHOD 10/29/2024 5:30 PM EST [facility] Body Fluid RBC <1,000 /mm3 LAB HEMETOLOGY METHOD 10/29/2024 5:30 PM EST [facility] Comment:Corrected result: Pr eviously reported as 0 /mm3 on 10/29/2024 at 1727 EST. Body Fluid Color Straw 10/29/2024 5:30 PM EST [facility] Body Fluid Clarity Hazy 10/29/2024 5:30 PM EST [facility] Body Fluid Source Peritoneal 10/29/2024 5:30 PM EST [facility] Peritoneal Fluid Non-blood Collection / Unknown 10/29/2024 2:33 PM EST 10/29/2024 2:45 PM EST [facility] - 10/29/2024 5:30 PM EST No reference ranges have been established for body fluids. Clinical correlation recommended. us Jordanjerry Miller MD LAB BODY FLUIDS AND STOOLS CAREY NICHOLS Edited Result - Final Performing Organization Address [facility]/ZIP Co de Phone Number [facility] [address] [place] [address], [place] [phone] * (ABNORMAL) B-type natriuretic peptide (10/29/2024 1:21 PM EST) BNP 193(H) <=100 pcg/mL LAB CHEMISTRY METHOD 10/29/2024 2:30 PM EST [facility] Blood Venous blood specimen / Unknown Venipuncture / Unknown 10/29/2024 1:21 PM EST 10/29/2024 1:52 PM EST Jordan Lisandra Miller MD LAB BLOOD ORDERABLES Final Resu lt Performing Organization Address [facility]/ZIP Co de Phone Number [facility] [address] [place] [address], * APTT (10/29/2024 1:21 PM EST) aPTT 32.7 24.1 - 39.3 sec LAB COAGULATION METHOD 10/29/2024 2:16 PM EST [facility] Blood Venous blood specimen / Unknown Venipuncture / Unknown 10/29/2024 1:21 PM EST 10/29/2024 1:52 PM EST Jordanjerry Miller MD LAB BLOOD ORDERABLES Final Resu lt [facility] [address] [place] [address], [place] [phone] * (ABNORMAL) Prothrombin time with INR (10/29/2024 1:21 PM EST) Protime 14.4(H) 10.6 - 13.9 sec LAB COAGULATION METHOD 10/29/2024 2:16 PM EST [facility] INR 1.2 LAB COAGULATION METHOD 10/29/2024 2:16 PM EST [facility] Blood Venous blood specimen / Unknown Venipuncture / Unknown 10/29/2024 1:21 PM EST 10/29/2024 1:52 PM EST us Jordan B Paul WILEY LAB BLOOD ORDERABLES Final Resu lt [facility] [address] [place] [address], [place] [phone] * CT Abdomen Pelvis w Contrast (10/29/2024 11:50 AM EST) Anatomical Region Laterality Modality Body Computed Tomogra phy 10/29/2024 12:1 8 PM EST Impressions 10/29/2024 12:30 PM EST Cirrhosis with sequelae of portal hypertension with large amount of abdominal ascites. Nonocclusive portal vein thrombosis. Incidental findings as noted above. -------- FINAL REPORT -------- Dictated By: Sushma Callejas Dictated Date: 10/29/2024 12:18 ET Assigned Physician: Sushma Callejas Reviewed and Electronically Signed By: Sushma Callejas Signed Date: 10/29/2024 12:30 ET Workstation ID: [id number] Transcribed By: Self Edit Transcribed Date: 10/29/2024 12:18 ET Narrative 10/29/2024 12:30 PM EST PROCEDURE: CT ABDOMEN/PELVIS WITH CONTRAST INDICATION: Abdominal distension TECHNIQUE: CT of the abdomen and pelvis following the intravenous administration of 90cc Isovue 370. Multiplanar reformats. The examination was performed utilizing dose reduction techniques. Total DLP 1587 COMPARISON: ??No priors available. FINDINGS: ?? LOWER THORAX: Lung bases are clear. HEPATOBILIARY: Nodular appearance of the liver compatible with cirrhosis. ??Punctate enhancing focus specific could represent a flash filling hemangioma. ??If there is persistent concern could recommend a triple phase CT. ??There is chronic, nonocclusive portal vein thrombosis along the wall of the main portal vein and in the right main portal vein. ??Cholelithiasis. ??Gallbladder wall thickening presumably related to hypoalbuminemia. SPLEEN: Mild splenomegaly. PANCREAS: No focal mass or ductal dilatation. ADRENALS: No nodules. KIDNEYS/URETERS: Punctate stone in the upper pole of the right kidney. ??Renal cysts. ??No hydronephrosis. PELVIC ORGANS/BLADDER: Mild bladder distention. PERITONEUM / RETROPERITONEUM: Large amount of ascites. ??No free air. VESSELS: Scattered atherosclerotic calcifications throughout the aorta and its major branches. No aneurysm. ??Small abdominal varices. GI TRACT: Multifocal areas of colonic wall thickening presumably due to under distention/portal hypertension. ??Reticulosis without evidence for acute diverticulitis. BONES AND SOFT TISSUES: Scattered degenerative changes seen throughout the bones. ??Right hip arthroplasty. ??Small amount of fluid at the umbilicus. ??Trace diffuse soft tissue edema. 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 Procedure Note Sushma Callejas MD - 10/29/2024 PROCEDURE: CT ABDOMEN/PELVIS WITH CONTRAST INDICATION: Abdominal distension TECHNIQUE: CT of the abdomen and pelvis following the intravenousadministration of 90cc Isovue 370. Multiplanar reformats. The examinationwas performed utilizing dose reduction techniques. Total DLP 1587 COMPARISON: No priors available. FINDINGS: LOWER THORAX: Lung bases are clear. HEPATOBILIARY: Nodular appearance of the liver compatible with cirrhosis.Punctate enhancing focus specific could represent a flash fillinghemangioma. If there is persistent concern could recommend a triple phaseCT. There is chronic, nonocclusive portal vein thrombosis along the wallof the main portal vein and in the right main portal vein.Cholelithiasis. Gallbladder wall thickening presumably related tohypoalbuminemia. SPLEEN: Mild splenomegaly. PANCREAS: No focal mass or ductal dilatation. ADRENALS: No nodules. KIDNEYS/URETERS: Punctate stone in the upper pole of the right kidney.Renal cysts. No hydronephrosis. PELVIC ORGANS/BLADDER: Mild bladder distention. PERITONEUM / RETROPERITONEUM: Large amount of ascites. No free air. VESSELS: Scattered atherosclerotic calcifications throughout the aorta andits major branches. No aneurysm. Small abdominal varices. GI TRACT: Multifocal areas of colonic wall thickening presumably due tounder distention/portal hypertension. Reticulosis without evidence foracute diverticulitis. BONES AND SOFT TISSUES: Scattered degenerative changes seen throughout thebones. Right hip arthroplasty. Small amount of fluid at the umbilicus.Trace diffuse soft tissue edema. 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 IMPRESSION: Cirrhosis with sequelae of portal hypertension with large amount ofabdominal ascites. Nonocclusive portal vein thrombosis. Incidental findings as noted above. -------- FINAL REPORT -------- Dictated By: Sushma Callejas Dictated Date: 10/29/2024 12:18 ET Assigned Physician: Sushma Callejas Reviewed and Electronically Signed By: Sushma Callejas Signed Date: 10/29/2024 12:30 ET Workstation ID: [id number] Transcribed By: Self Edit Transcribed Date: 10/29/2024 12:18 ET Jordan Lisandra Miller MD IM CT PROCEDURES Final Result * (ABNORMAL) CBC auto differential (10/29/2024 8:42 AM EST) WBC 6.0 4.8 - 10.8 K/mcL LAB HEMETOLOGY METHOD 10/29/2024 9:48 AM [facility] RBC 4.20(L) 4.50 - 5.50 M/mcL LAB HEMETOLOGY METHOD 10/29/2024 9:48 AM [facility] Hemoglobin 12.9(L) 13.5 - 17.5 g/dL LAB HEMETOLOGY METHOD 10/29/2024 9:48 AM [facility] Hematocrit 39.1(L) 42.0 - 54.0 % LAB HEMETOLOGY METHOD 10/29/2024 9:48 AM [facility] MCV 93.8 79.0 - 98.0 FL LAB HEMETOLOGY METHOD 10/29/2024 9:48 AM [facility] MCH 30.9 27.0 - 32.0 pcg LAB HEMETOLOGY METHOD 10/29/2024 9:48 AM [facility] MCHC 33.0 32.0 - 37.0 g/dL LAB HEMETOLOGY METHOD 10/29/2024 9:48 AM [facility] RDW 13.6 11.0 - 15.0 % LAB HEMETOLOGY METHOD 10/29/2024 9:48 AM [facility] Platelets 10/29/2024 9:48 AM [facility] Comment:Not measured. Unable to quantitate due to platelet clumping MPV 12.2(H) 7.0 - 11.0 FL LAB HEMETOLOGY METHOD 10/29/2024 9:48 AM [facility] NRBC 0.0 <1.0 % LAB HEMETOLOGY METHOD 10/29/2024 9:48 AM [facility] NRBC Absolute 0.00 <0.10 K/mcL LAB HEMETOLOGY METHOD 10/29/2024 9:48 AM [facility] Neutrophils Relative 67.0 % LAB HEMETOLOGY METHOD 10/29/2024 9:48 AM [facility] Lymphocytes Relative 21.5 % LAB HEMETOLOGY METHOD 10/29/2024 9:48 AM [facility] Monocytes Relative 8.8 % LAB HEMETOLOGY METHOD 10/29/2024 9:48 AM [facility] Eosinophils Relative 1.7 % LAB HEMETOLOGY METHOD 10/29/2024 9:48 AM [facility] Basophils Relative 0.8 % LAB HEMETOLOGY METHOD 10/29/2024 9:48 AM [facility] Immature Granulocytes Relative 0.2 % LAB HEMETOLOGY METHOD 10/29/2024 9:48 AM [facility] Neutrophils Absolute 4.01 1.50 - 7.00 K/mcL LAB HEMETOLOGY METHOD 10/29/2024 9:48 AM [facility] Lymphocytes Absolute 1.29 1.00 - 5.00 K/mcL LAB HEMETOLOGY METHOD 10/29/2024 9:48 AM EST [facility] Monocytes Absolute 0.53 0.20 - 1.00 K/mcL LAB HEMETOLOGY METHOD 10/29/2024 9:48 AM EST [facility] Eosinophils Absolute 0.10 0.00 - 0.50 K/mcL LAB HEMETOLOGY METHOD 10/29/2024 9:48 AM [facility] Basophils Absolute 0.05 0.00 - 0.20 K/[facility] LAB HEMETOLOGY METHOD 10/29/2024 9:48 AM [facility] Immature Granulocytes Absolute 0.01 0.00 - 0.03 K/mcL LAB HEMETOLOGY METHOD 10/29/2024 9:48 AM [facility] Blood Venous blood specimen / Unknown Venipuncture / Unknown 10/29/2024 8:42 AM EST 10/29/2024 8:53 AM EST Jordan Miller MD LAB BLOOD ORDERABLES Final Resu lt Performing Organization Address City/[facility]/ZIP Co de Phone Number [facility] [address] [place] [address], * Lipase (10/29/2024 8:42 AM EST) Pathologist [facility] Lipase 31 13 - 75 unit/L LAB CHEMISTRY METHOD 10/29/2024 9:25 AM [facility] Blood Venous blood specimen / Unknown Venipuncture / Unknown 10/29/2024 8:42 AM EST 10/29/2024 8:53 AM EST us Jordna Miller MD LAB BLOOD ORDERABLES Final Resu lt [facility] [address] [place] [address], [place] [phone] * (ABNORMAL) Comprehensive metabolic panel (10/29/2024 8:42 AM EST) Sodium 141 133 - 145 mmol/L LAB CHEMISTRY METHOD 10/29/2024 9:50 AM [facility] Potassium 4.3 3.5 - 5.5 mmol/L LAB CHEMISTRY METHOD 10/29/2024 9:50 AM [facility] Chloride 108 96 - 110 mmol/L LAB CHEMISTRY METHOD 10/29/2024 9:50 AM [facility] CO2 30 21 - 32 mmol/L LAB CHEMISTRY METHOD 10/29/2024 9:50 AM [facility] Anion Gap 3 3 - 11 LAB CHEMISTRY METHOD 10/29/2024 9:50 AM [facility] Glucose 121(H) 70 - 100 mg/dL LAB CHEMISTRY METHOD 10/29/2024 9:50 AM [facility] BUN 14 5 - 25 mg/dL LAB CHEMISTRY METHOD 10/29/2024 9:50 AM [facility] Creatinine 0.74 0.70 - 1.30 mg/dL LAB CHEMISTRY METHOD 10/29/2024 9:50 AM [facility] eGFR 97 >=60 mL/min/1. 73m2 LAB CHEMISTRY METHOD 10/29/2024 9:50 AM [facility] Comment:Calculation based on the??Chronic Kidney Disease Epidemiology Collaboration (CKD-EPI) equation refit??without adjustment for race. BUN/Creatinine Ratio 18.9 LAB CHEMISTRY METHOD 10/29/2024 9:50 AM [facility] Calcium 8.9 8.5 - 10.5 mg/dL LAB CHEMISTRY METHOD 10/29/2024 9:50 AM [facility] AST (SGOT) 35 10 - 42 unit/L LAB CHEMISTRY METHOD 10/29/2024 9:50 AM [facility] ALT (SGPT) 23 10 - 60 unit/L LAB CHEMISTRY METHOD 10/29/2024 9:50 AM [facility] Alkaline Phosphatase 126(H) 42 - 121 unit/L LAB CHEMISTRY METHOD 10/29/2024 9:50 AM EST [facility] Total Protein 7.4 6.0 - 8.0 g/dL LAB CHEMISTRY METHOD 10/29/2024 9:50 AM EST [facility] Albumin 2.9(L) 3.2 - 5.0 g/dL LAB CHEMISTRY METHOD 10/29/2024 9:50 AM EST [facility] Total Bilirubin 1.0 0.0 - 1.4 mg/dL LAB CHEMISTRY METHOD 10/29/2024 9:50 AM EST [facility] Blood Venous blood specimen / Unknown Venipuncture / Unknown 10/29/2024 8:42 AM EST 10/29/2024 8:53 AM EST Jordan Lisandra Miller MD LAB BLOOD ORDERABLES Final Resu lt [facility] [address] [place] [address], [place] [phone] * ECG 12 lead (10/29/2024 7:06 AM EST) Ventricular Rate ECG 63 BPM GEMUSE Atrial Rate 63 BPM GEMUSE P-R Interval 146 ms GEMUSE QRS Duration 88 ms GEMUSE Q-T Interval 452 ms GEMUSE QTc 462 ms GEMUSE P Wave Beverly 64 degrees GEMUSE R Beverly 5 degrees GEMUSE T Beverly 18 degrees GEMUSE ECG Interpretation Normal sinus rhythm Low voltage QRS Borderline ECG No previous ECGs available Confirmed by YAMINI FRANKLIN ([id number]) on 11/01/2024 8:44:08 AM GEMUSE 10/29/2024 7:06 AM EST 11/01/2024 8:44 AM EST Jordanjerry Miller MD ECG ORDERABLES Final Result GEMUSE documented in this encounter Visit Diagnoses Diagnosis Cirrhosis of liver with ascites (CMS/HCC)- Primary Other ascites Abdominal distension Flatulence, eructation, and gas pain Hemochromatosis Disorders of iron metabolism Hypokalemia Hypopotassemia Hypomagnesemia Disorders of magnesium metabolism documented in this encounter Admitting Diagnoses Diagnosis Cirrhosis of liver with ascites (CMS/HCC) documented in this encounter Administered Medications Inactive Administered Medications - up to 3 most recent administrations Medication Order MAR Action Action Date Dose Rate Site acetaminophen (TYLENOL) tablet 650 mg 650 mg, oral, Every 8 hours PRN, mild pain, fever - temperature GREATER than 38 C (100.4 F), Starting on Bambi 10/29/24 at 1458 Given 10/29/2024 6:32 PM EST 650 mg albumin human 25 % infusion 50 g 50 g, intravenous, Once, On Bambi 10/29/24 at 1455, For 1 dose, FOR HYPOVOLEMIC SHOCK: Infuse 5% Albumin as rapidly as tolerated (500 mL over 1 - 2 hr) or (250 mL over 30 - 60 min), as blood volume approaches normal then infusion rate should not exceed 1 mL/min. Infusing too rapidly may cause vascular overload which may lead to pulmonary edema or cardiac failure. ROUTINE REPLACEMENT: (non-critical) Infuse 5% or 25% Albumin @ 100 mL/hr for routine albumin replacement in non-critical situations. Faster infusion rates are appropriate for hypovolemic shock (see above). ADMINISTRATION NOTE: A 15-micron filter is only required for Buminate; however, filters are NOT required for all other brands (Albuked, Albuminar, Albuminex, AlbuRx, Albutein, Flexbumin, Kedbumin, Plasbumin). Do not exceed 1 mL/minute in patients with normal plasma volume; 3 mL/minute in patients with hypoproteinemia., Indications: acute hepatic failureIndications:acute hepatic failure Rate/Dose Change 10/29/2024 6:33 PM EST 100 mL/hr New Bag 10/29/2024 3:28 PM EST 50 g amLODIPine (NORVASC) tablet 2.5 mg 2.5 mg, oral, Daily, First dose on Sat10/30/24 at 0900 Given 10/30/2024 9:24 AM EST 2.5 mg iopamidoL (ISOVUE-370) 370 mg iodine /mL (76 %) injection 90 mL 90 mL, intravenous, Once in imaging, Starting on Bambi 10/29/24 at 1144, For 1 dose Given 10/29/2024 11:45 AM EST 90 mL lidocaine (XYLOCAINE) 1 % injection 10 mL 10 mL, injection, Once in imaging, Starting on Bambi 10/29/24 at 1430, For 1 dose Given 10/29/2024 2:31 PM EST 10 mL Right Lower Abdomen magnesium hydroxide (MILK OF MAGNESIA) 400 mg/5 mL suspension 30 mL 30 mL, oral, Daily PRN, constipation, Starting on Bambi 10/29/24 at 1455, 1st line for treatment of constipation - give scheduled if no bowel movement in past 24 hours magnesium sulfate 2 gram/50 mL (4 %) IVPB 2 g 2 g, intravenous, at 25 mL/hr, Administer over 2 Hours, Once, On Sat10/30/24 at 0945, For 1 dose New Bag 10/30/2024 10:54 AM EST 2 g 25 mL/hr meloxicam (MOBIC) tablet 7.5 mg 7.5 mg, oral, Daily, First dose on Sat10/30/24 at 0900 Given 10/30/2024 9:24 AM EST 7.5 mg ondansetron (PF) (ZOFRAN) injection 4 mg 4 mg, intravenous, Every 6 hours PRN, vomiting, nausea, Starting on Bambi 10/29/24 at 1455, -ONLY give IV if patient is unable to take orally. -If inadequate response within 30 minutes, proceed to next-line agent or contact provider if no further options ordered. pantoprazole (PROTONIX) EC tablet 40 mg 40 mg, oral, Every morning before breakfast, First dose on Sat10/30/24 at 0700, Do not crush, chew, or split. Given 10/30/2024 5:51 AM EST 40 mg potassium chloride (KLOR-CON M20) CR tablet 40 mEq 40 mEq, oral, Once, On Sat10/30/24 at 0945, For 1 dose, Tablet may be swallowed whole (do not crush/chew/suck on) OR broken in half and each half swallowed separately OR dissolved (whole tablet) in ~4 ounces of water (allow ~2 minutes to dissolve, stir well and administer immediately). Given 10/30/2024 10:54 AM EST 40 mEq propranoloL (INDERAL) tablet 20 mg 20 mg, oral, 2 times daily, First dose on Sat10/30/24 at 0900 Given 10/30/2024 9:24 AM EST 20 mg sodium chloride 0.9 % flush 10 mL 10 mL, intravenous, Once, On Bambi 10/29/24 at 1145, For 1 dose Given 10/29/2024 11:45 AM EST 10 mL sodium chloride 0.9 % flush 10 mL 10 mL, intravenous, 2 times daily, First dose on Bambi 10/29/24 at 2100 Given 10/30/2024 10:56 AM EST 10 mL Given 10/29/2024 9:39 PM EST 10 mL sodium chloride 0.9 % flush 10 mL 10 mL, intravenous, As needed, line care, Starting on Bambi 10/29/24 at 1455 documented in this encounter Discontinued Medications Medication Sig Discontinue Reason Start Date End Da te meloxicam (MOBIC) 7.5 mg tablet Take 1 tablet (7.5 mg total) by mouth 1 (one) time each day. Stop Taking at Discharge 09/15/2024 10/30/2024 amLODIPine (NORVASC) 2.5 mg tablet Take 1 tablet (2.5 mg total) by mouth 1 (one) time each day. Stop Taking at Discharge 09/05/2024 10/30/2024 documented as of this encounter Active and Recently Administered Medications Times are shown in EST. Scheduled Medication Order 10/28/2024 10/29/2024 10/30/2024 albumin human 25 % infusion 50 g (COMPLETED) 50 g, intravenous, Once, On Bambi 10/29/24 at 1455, For 1 dose, FOR HYPOVOLEMIC SHOCK: Infuse 5% Albumin as rapidly as tolerated (500 mL over 1 - 2 hr) or (250 mL over 30 - 60 min), as blood volume approaches normal then infusion rate should not exceed 1 mL/min. Infusing too rapidly may cause vascular overload which may lead to pulmonary edema or cardiac failure. ROUTINE REPLACEMENT: (non-critical) Infuse 5% or 25% Albumin @ 100 mL/hr for routine albumin replacement in non-critical situations. Faster infusion rates are appropriate for hypovolemic shock (see above). ADMINISTRATION NOTE: A 15-micron filter is only required for Buminate; however, filters are NOT required for all other brands (Albuked, Albuminar, Albuminex, AlbuRx, Albutein, Flexbumin, Kedbumin, Plasbumin). Do not exceed 1 mL/minute in patients with normal plasma volume; 3 mL/minute in patients with hypoproteinemia., Indications: acute hepatic failure 1528 (New Bag - Provider: Criss Clark RN)1833 (Rate/Dose Change - Provider: Criss Clark RN) amLODIPine (NORVASC) tablet 2.5 mg 2.5 mg, oral, Daily, First dose on Sat10/30/24 at 0900 0924 (Given - Provid er: Rosario Mcghee RN) iopamidoL (ISOVUE-370) 370 mg iodine /mL (76 %) injection 90 mL (COMPLETED) 90 mL, intravenous, Once in imaging, Starting on Bambi 10/29/24 at 1144, For 1 dose 1145 (Given - Provider: Lili Castelan) lidocaine (XYLOCAINE) 1 % injection 10 mL (COMPLETED) 10 mL, injection, Once in imaging, Starting on Bambi 10/29/24 at 1430, For 1 dose 1431 (Given - Provider: Lesley Nash) magnesium sulfate 2 gram/50 mL (4 %) IVPB 2 g (COMPLETED) 2 g, intravenous, at 25 mL/hr, Administer over 2 Hours, Once, On Sat10/30/24 at 0945, For 1 dose 1054 (New Bag - Provider: Rosario Mcghee RN)1228 (Stopped - Provider: Rosario Mcghee RN) meloxicam (MOBIC) tablet 7.5 mg 7.5 mg, oral, Daily, First dose on Sat10/30/24 at 0900 0924 (Given - Provid er: Rosario Mcghee RN) pantoprazole (PROTONIX) EC tablet 40 mg 40 mg, oral, Every morning before breakfast, First dose on Sat10/30/24 at 0700, Do not crush, chew, or split. 0551 (Given - Provid er: Lori Mccormack RN) potassium chloride (KLOR-CON M20) CR tablet 40 mEq (COMPLETED) 40 mEq, oral, Once, On Sat10/30/24 at 0945, For 1 dose, Tablet may be swallowed whole (do not crush/chew/suck on) OR broken in half and each half swallowed separately OR dissolved (whole tablet) in ~4 ounces of water (allow ~2 minutes to dissolve, stir well and administer immediately). 1054 (Given - Provid er: Rosario Mcghee RN) propranoloL (INDERAL) tablet 20 mg 20 mg, oral, 2 times daily, First dose on Sat10/30/24 at 0900 0924 (Given - Provid er: Rosario Mcghee RN) sodium chloride 0.9 % flush 10 mL (COMPLETED) 10 mL, intravenous, Once, On Bambi 10/29/24 at 1145, For 1 dose 1145 (Given - Provider: Lili Castelan) sodium chloride 0.9 % flush 10 mL(Linked Group 1) 10 mL, intravenous, 2 times daily, First dose on Bambi 10/29/24 at 2100 2139 (Given - Provider: Lori Mccromack RN) 1056 (Given - Provider: Rosario Mcghee RN) PRN Medication Order 10/28/2024 10/29/2024 10/30/2024 acetaminophen (TYLENOL) tablet 650 mg 650 mg, oral, Every 8 hours PRN, mild pain, fever - temperature GREATER than 38 C (100.4 F), Starting on Bambi 10/29/24 at 1458 1832 (Given - Provider: Criss Clark RN) magnesium hydroxide (MILK OF MAGNESIA) 400 mg/5 mL suspension 30 mL 30 mL, oral, Daily PRN, constipation, Starting on Bambi 10/29/24 at 1455, 1st line for treatment of constipation - give scheduled if no bowel movement in past 24 hours ondansetron (PF) (ZOFRAN) injection 4 mg 4 mg, intravenous, Every 6 hours PRN, vomiting, nausea, Starting on Bambi 10/29/24 at 1455, -ONLY give IV if patient is unable to take orally. -If inadequate response within 30 minutes, proceed to next-line agent or contact provider if no further options ordered. sodium chloride 0.9 % flush 10 mL(Linked Group 1) 10 mL, intravenous, As needed, line care, Starting on Bambi 10/29/24 at 1455 Linked Groups Order Group 1: Insert peripheral IV (COMPLETED) STAT, Once, On Bambi 10/29/24 at 1456, For 1 occurrence And Maintain IV access (CANCELED) Until discontinued, Starting on Bambi 10/29/24 at 1456, Until Specified And Saline lock IV (COMPLETED) Routine, Once, On Bambi 10/29/24 at 1456, For 1 occurrence And sodium chloride 0.9 % flush 10 mLJump to med 10 mL, intravenous, 2 times daily, First dose on Bambi 10/29/24 at 2100 And sodium chloride 0.9 % flush 10 mLJump to med 10 mL, intravenous, As needed, line care, Starting on Bambi 10/29/24 at 1455 documented in this encounter Orders Medications Ordered That Fausto ht Not Have Been Administered Count Last Ordered Date First Ordered Date magnesium hydroxide (MILK OF MAGNESIA) 400 mg/5 mL suspension 30 mL 1 10/29/2024 ondansetron (PF) (ZOFRAN) injection 4 mg 1 10/29/2024 sodium chloride 0.9 % flush 10 mL 1 025 Diet Count Last Ordered Date First Orde red Date ADULT DISCHARGE DIET 1 10/30/2024 Nursing Count Last Ordered Date First Orde red Date ACTIVITY 1 10/30/2024 FOLLOW UP PRIMARY PHYSICIAN 1 10/30/2024 FOLLOW UP WITH PROVIDER 1 10/30/2024 IV Count Last Ordered Date First Orde red Date INSERT PERIPHERAL IV 1 10/29/2024 SALINE LOCK IV 1 10/29/2024 Admission Count Last Ordered Date First Orde red Date INITIATE OBSERVATION STATUS 1 10/29/2024 Transfer Count Last Ordered Date First Orde red Date ED TO FLOOR BED REQUEST 1 10/29/2024 Discharge Count Last Ordered Date First Orde red Date DISCHARGE PATIENT 1 10/30/2024 documented in this encounter Care Teams Molding Utility Worker Relationship Specialty Start Date End Date Lou Jolley MD [address] [place] [address] PCP - General Internal Medicine 09/24/24 documented as of this encounter
--- OUTSIDE RECORDS SUMMARY | 2024-11-04 15:06 | XMS_ITS | Continuity of Care Document ---
Author Name [facility] Organization [facility] Care Team Providers Care Timber Framer Name Role Phone [facility] Unavailable Unavailable Problems Combined list of problems from [facility] and [facility] facilities. It does not include entries that were removed or entered in error. Problem Status Onset Date Problem Type Date of Resolution Comments Source Anxiety ([facility] [id number]) Active Condition [place] Benign enlargement of prostate Active Condition [place] Cataract Active Condition Jun 14 Entered By: JIMI MANNING Comment: s/p extraction [place] Cirrhosis of liver Active Condition [facility] Essential hypertension Active Condition [place] Familial hemochromatosis Active Condition [facility] GERD - Gastro-Esophageal Reflux Disease ([facility] [id number]) Active Condition [place] Hearing loss Active Condition [facility] Medications Combined list of outpatient medications from Department of Defense and [facility] facilities.Medications provided include 1) outpatient medications [...] adverse reactions to drug (finding) Tachy[facility] Immunizations Combined list of available immunizations from the Department of Defense and Veterans Affairs facilities. Immunization Series Date Given Administered By Site Reaction Lot Number CVX Code Drug Magnaflux Operator Status Comments Source INFLUENZA, UNSPECIFIED FORMULATION 2021 88 complet ed [facility] COVID-19 (MODERNA), MRNA, LNP-S, PF, 100 MCG/0.5ML DOSE OR 50 MCG/0.25ML DOSE 3 2021 207 complet ed [facility] ZOSTER RECOMBINANT 2 2021 187 complet ed Records [facility] to scan. [facility] COVID-19 (MODERNA), MRNA, LNP-S, PF, 100 MCG/0.5ML DOSE OR 50 MCG/0.25ML DOSE 3 2020 207 complet ed [facility] COVID-19 (MODERNA), MRNA, LNP-S, PF, 100 MCG/0.5ML DOSE OR 50 MCG/0.25ML DOSE 2 2020 207 complet ed [facility] COVID-19 (MODERNA), MRNA, LNP-S, PF, 100 MCG/0.5ML DOSE OR 50 MCG/0.25ML DOSE 1 2020 207 complet ed [facility] [place] [facility] PNEUMOCOCCAL CONJUGATE PCV 13 2019 133 complet ed sent to scan through [facility] [place] [facility] TDAP 2014 115 complet ed Records sent to scan through [facility] [place] [facility] ZOSTER RECOMBINANT 1 2014 187 complet ed Records sent to scan via [facility] [place] [facility] [place] [facility] Social History Combined list of available smoking, tobacco, and other social history from Department of Defense and Veterans Affairs facilities. Social History Type Response Date Comment Sourc e Tobacco smoking status [facility] VA-TOBACCO NEVER USED 06/11/2022 [facility] [place] [facility] Advance Directives List of completed, amended, or rescinded Advance Directives on record at Department of Veterans Affairs facilities. An actual copy of the Directive is not included. Date Advance Directive Provider Source 06/08/2022 ADVANCE DIRECTIVE JUAN C MUÑOZ [facility]
--- OUTSIDE RECORDS SUMMARY | 2024-11-04 15:06 | XMS_ITS | Encounter Summary ---
[facility] Organization [facility] Address [address] [place] [address] Care Team Providers Care Tire Repair Mechanic Name Role Phone Lou Jolley MD Primary Care Provider [phone] Encounter Details Date Type Department Care Team (Late st Contact Info) Description 10/28/2024 2:40 PM EST - 10/28/2024 5:29 PM EST Emergency [facility] Emergency [address] [place] [address] Discharge Disposition: Home or Self Care Social [...] PM EST documented as of this encounter Medications at Time of Discharge atorvastatin (LIPITOR) 20 mg tablet Take 1 [...] not crush or chew. 90 each 10/23/2024 01/21/2025 tamsulosin (FLOMAX) 0.4 mg 24 hr capsule Take 1 capsule (0.4 mg total) by mouth 1 (one) time each day. 08/18/2024 trospium 60 mg capsule,extended release 24hr Take 1 capsule (60 mg total) by mouth 1 (one) time each day. 08/02/2024 amLODIPine (NORVASC) 2.5 mg tablet Take 1 tablet (2.5 mg total) by mouth 1 (one) time each day. 09/05/2024 10/30/2024 meloxicam (MOBIC) 7.5 mg tablet Take 1 tablet (7.5 mg total) by mouth 1 (one) time each day. 09/15/2024 10/30/2024 documented as of this encounter Discharge Disposition Disposition Code Departure Means Destination Comment s Home or Self Care Pt talked with nurse Ortiz and told her he is leaving will come back tomorrow documented in this encounter Progress Notes * Diana Joya RN - 10/28/2024 4:30 PM EST The patient has decided to leave and return in the morning. documented in this encounter Plan of Treatment Upcoming Encounters Date Type Department Care Team (Late st Contact Info) Description 01/14/2025 8:00 AM EDT Office Visit Gastroenterology - [address] [place] [phone] Wilbert Carlson MD [address] [place] [address] documented as of this encounter Visit Diagnoses Not on filedocumented in this encounter Care Teams Tire Repair Mechanic Relationship Specialty Start Date End Date Lou Jolley MD [address] [facility] [address] [place] [address] PCP - General Internal Medicine 09/24/24 documented as of this encounter
--- OUTSIDE RECORDS SUMMARY | 2024-11-04 15:06 | XMS_ITS | Encounter Summary ---
Author Organization [facility] Address [address] [place] [address] Care Team Providers Care Chain Pegger Name Role Phone Lou Jolley MD Primary Care Provider [phone] Encounter Details Date Type Department Care Team (Late Contact Info) Description 10/12/2024 Telephone Gastroenterology - [address] [facility] [address] [place] [phone] Katie Baker PA [address] [place] [address] Social History Tobacco Use Types Packs/Day Years [...] Department Care Team (Late Contact Info) Description 01/14/2025 8:00 AM EDT Office Visit Gastroenterology - [address] [facility] [address] [place] [address] Wilbert Carlson MD [address] [facility] [address] [place] [address] documented as of this encounter Visit Diagnoses Not on filedocumented in this encounter Care Teams Chain Pegger Relationship Specialty Start Date End Date Lou Jolley MD [address] [facility] [address] [place] [address] PCP - General Internal Medicine 09/24/24 documented as of this encounter
--- OUTSIDE RECORDS SUMMARY | 2024-11-04 15:06 | XMS_ITS | Encounter Summary ---
Author Organization [facility] Address [address] [place] [address] Care Team Providers Care Commercial Crabber Name Role Phone Lou Jolley MD Primary Care Provider [phone] Encounter Details Date Type Department Care Team (Late st Contact Info) Description 10/19/2024 10:58 AM EST Anesthesia Event [facility] Endoscopy [address] [place] [address] French Sheffield MD [address] [place] [address] [address] [place] [address] Anesthesia Record Procedure Summary Procedure Name Responsible [...] Procedure Summary Date: 10/19/24 Room / Location: [facility] Endoscopy Anesthesia Start: 1058 Anesthesia Stop: [...] discussed with patient. Anesthesia Plan discussed with ADMINISTRATIVE PROGRAM SPECIALIST. Anesthesia Evaluation No history of anesthetic complications [...] Office Visit Gastroenterology - [address] [facility] [address] [place] [address] Wilbert Carlson MD [address] [facility] [address] [place] [address] documented as of this encounter Visit Diagnoses [...] mg documented in this encounter Care Teams Commercial Crabber Relationship Specialty Start Date End Date Lou Jolley MD [address] [facility] [address] [place] [address] PCP - General Internal Medicine 09/24/24 documented as of this encounter
--- OUTSIDE RECORDS SUMMARY | 2024-11-04 15:06 | XMS_ITS | Encounter Summary ---
Author Organization [facility] Address [address] [place] [address] Care Team Providers Care Tele Grout Sewer Line Repairer Name Role Phone Lou Jolley MD Primary Care Provider [phone] Encounter Details Date Type Department Care Team (Late Contact Info) Description 10/05/2024 Telephone Gastroenterology - [address] [phone] Wilbert Carlson MD [address] [address] Social History Tobacco Use Types Packs/Day Years [...] Office Visit Gastroenterology - [address] [facility] [address] [place] [phone] Wilbert Carlson MD [address] [facility] [address] [place] [address] documented as of this encounter Visit Diagnoses Diagnosis Nausea and vomiting, unspecified vomiting type- Primary History of colon polyps Hx of esophageal varices documented in this encounter Care Teams Tele Grout Sewer Line Repairer Relationship Specialty Start Date End Date Lou Jolley MD [address] [facility] [address] [place] [address] PCP - General Internal Medicine 09/24/24 documented as of this encounter
--- OUTSIDE RECORDS SUMMARY | 2024-11-04 15:06 | XMS_ITS | Encounter Summary ---
Author Organization [facility] Address [address] [place] [address] Care Team Providers Care Linting Machine Operator Name Role Phone Lou Jolley MD Primary Care Provider [phone] Reason for Referral * Imaging (Routine) - Pending Review Specialty Diagnoses / Procedures Referred By Ubaldo schafer Referred To Contact Radiology Diagnoses Nausea and vomiting, unspecified vomiting type Umbilical hernia without obstruction and without gangrene Lack of appetite Other cirrhosis of liver (CMS/HCC) Hereditary hemochromatosis (CMS/HCC) Procedures CT Abdomen Pelvis w Contrast Katie Baker PA [address] [address] Phone: tel: fax: [address] [address] Phone: tel: Referral ID Status Reason Start Date Expiration Date V isits Requested Visits Authorized [id number] Pending Review 10/05/2024 10/05/2025 1 1 Encounter Details Date Type Department Care Team (Late st Contact Info) Description 10/05/2024 Telephone Gastroenterology - [address] [phone] Katie Baker PA [address] [address] Social History Tobacco Use Types Packs/Day Years [...] Gastroenterology - [address] [facility] [address] [place] [address] Wilbert Carlson MD [address] [facility] [address] [place] [address] Scheduled Orders Name Type Priority Associated Diagnoses [...] LAB COAGULATION METHOD 10/12/2024 1:11 PM EST [facility] INR 1.1 LAB COAGULATION METHOD 10/12/2024 1:11 PM EST [facility] Blood Venous blood specimen / Unknown Venipuncture / Unknown 10/12/2024 11:16 AM EST 10/12/2024 12:53 PM EST Katie JAY LAB BLOOD ORDERABLES Final R esult Performing Organization Address City/[facility]/ZIP Co de Phone Number [facility] [address] [place] [address], [place] [phone] * Alpha fetoprotein tumor marker (10/12/2024 11:16 AM EST) [facility] AFP <2.5 0.0 - 8.0 ng/mL LAB CHEMISTRY METHOD 10/12/2024 3:56 PM EST [facility] Blood Venous blood specimen / Unknown Venipuncture / Unknown 10/12/2024 11:16 AM EST 10/12/2024 12:50 PM EST Narrative [facility] - 10/12/2024 3:56 PM EST The Siemens Advia Centaur Chemiluminescent Immunoassay is used. Results obtained with different assay methods or kits cannot be used interchangeably. Results cannot be interpreted as absolute evidence of the presence or absence of malignant disease. Katie JAY LAB BLOOD ORDERABLES Final R esult Performing Organization Address City/[facility]/ZIP Co de Phone Number [facility] [address] [place] [address], * Thyroid stimulating immunoglobulin (10/12/2024 11:16 AM EST) [facility] Thyroid Stimulating Immunoglobulin <0.10 <0.10 IU/L 10/15/2024 3:22 PM EST [facility] Comment: Thyroid stimulating immunoglobulins (TSI) concentrations greater than or equal to (>=) 0.55 IU/L have a clinical sensitivity of at least 98.6%, and a clinical specificity of at least 98.5%, for the differential diagnosis of Graves' Disease. TSI concentrations for patients with other thyroid or autoimmune diseases range from 0.11 to 0.39 IU/L. Test performed at [facility], [address] , [place], [place] [address] ? [phone] Carolynn Mckeon MD, PhD - [facility] Blood Venous blood specimen / Unknown Venipuncture / Unknown 10/12/2024 11:16 AM EST 10/12/2024 12:50 PM EST Katie JAY LAB BLOOD ORDERABLES Final R esult [facility] [address] [place] [address] * Amylase (10/12/2024 11:16 AM EST) [facility] Amylase 31 25 - 115 unit/L LAB CHEMISTRY METHOD 10/12/2024 3:47 PM EST [facility] Blood Venous blood specimen / Unknown Venipuncture / Unknown 10/12/2024 11:16 AM EST 10/12/2024 12:50 PM EST Katie JAY LAB BLOOD ORDERABLES Final R esult [facility] [address] [place] [address], * Lipase (10/12/2024 11:16 AM EST) Lipase 24 13 - 75 unit/L LAB CHEMISTRY METHOD 10/12/2024 3:47 PM [facility] Blood Venous blood specimen / Unknown Venipuncture / Unknown 10/12/2024 11:16 AM EST 10/12/2024 12:50 PM EST Katie JAY LAB BLOOD ORDERABLES Final R esult [facility] [address] [place] [address], [place] [phone] * (ABNORMAL) Comprehensive metabolic panel (10/12/2024 11:16 AM EST) [facility] Sodium 139 133 - 145 mmol/L LAB CHEMISTRY METHOD 10/12/2024 3:48 PM [facility] Potassium 3.5 3.5 - 5.5 mmol/L LAB CHEMISTRY METHOD 10/12/2024 3:48 PM [facility] Chloride 103 96 - 110 mmol/L LAB CHEMISTRY METHOD 10/12/2024 3:48 PM [facility] CO2 31 21 - 32 mmol/L LAB CHEMISTRY METHOD 10/12/2024 3:48 PM [facility] Anion Gap 5 3 - 11 LAB CHEMISTRY METHOD 10/12/2024 3:48 PM [facility] Glucose 117(H) 70 - 100 mg/dL LAB CHEMISTRY METHOD 10/12/2024 3:48 PM [facility] BUN 11 5 - 25 mg/dL LAB CHEMISTRY METHOD 10/12/2024 3:48 PM [facility] Creatinine 0.77 0.70 - 1.30 mg/dL LAB CHEMISTRY METHOD 10/12/2024 3:48 PM [facility] eGFR 96 >=60 mL/min/1. 73m2 LAB CHEMISTRY METHOD 10/12/2024 3:48 PM [facility] Comment:Calculation based on the??Chronic Kidney Disease Epidemiology Collaboration (CKD-EPI) equation refit??without adjustment for race. BUN/Creatinine Ratio 14.3 LAB CHEMISTRY METHOD 10/12/2024 3:48 PM [facility] Calcium 8.8 8.5 - 10.5 mg/dL LAB CHEMISTRY METHOD 10/12/2024 3:48 PM [facility] AST (SGOT) 21 10 - 42 unit/L LAB CHEMISTRY METHOD 10/12/2024 3:48 PM [facility] ALT (SGPT) 21 10 - 60 unit/L LAB CHEMISTRY METHOD 10/12/2024 3:48 PM [facility] Alkaline Phosphatase 130(H) 42 - 121 unit/L LAB CHEMISTRY METHOD 10/12/2024 3:48 PM [facility] Total Protein 7.3 6.0 - 8.0 g/dL LAB CHEMISTRY METHOD 10/12/2024 3:48 PM [facility] Albumin 3.0(L) 3.2 - 5.0 g/dL LAB CHEMISTRY METHOD 10/12/2024 3:48 PM [facility] Total Bilirubin 0.8 0.0 - 1.4 mg/dL LAB CHEMISTRY METHOD 10/12/2024 3:48 PM [facility] Blood Venous blood specimen / Unknown Venipuncture / Unknown 10/12/2024 11:16 AM EST 10/12/2024 12:50 PM EST us Katie JAY LAB BLOOD ORDERABLES Final R esult [facility] [address] [place] [address], documented in this encounter Visit Diagnoses Diagnosis [...] 10/05/2024 documented in this encounter Care Teams Linting Machine Operator Relationship Specialty Start Date End Date Lou Jolley MD [address] [place] [address] PCP - General Internal Medicine 09/24/24 documented as of this encounter
--- OUTSIDE RECORDS SUMMARY | 2024-11-04 15:06 | XMS_ITS | Encounter Summary ---
Author Organization [facility] Address [address] [place] [address] Care Team Providers Care Bag Adjuster Name Role Phone Lou Jolley MD Primary Care Provider [phone] Reason for Referral * Consultation (Routine) - Pending Review Specialty Diagnoses / Procedures Referred By Ubaldo schafer Referred To Contact General Surgery Diagnoses Other cirrhosis of liver (CMS/HCC) Wilbert Carlson MD 299 [facility] [address] [place] [address] Phone: tel: fax: Colby Fraser MD [address] [facility] [address] [place] [address] Phone: tel: fax: Referral ID Status Reason Start Date Expiration Date Visits Requested Visits Authorized [id number] Pending Review Specialty Services Required 11/02/2024 11/02/2025 1 1 Reason for Visit * Reason Comments Follow-up Ascites Hernia hfu Encounter Details Date Type Department Care Team (Latest Contact Info) Description 11/02/2024 1:15 PM EST Office Visit Gastroenterology - [address] [facility] [address] [place] [address] Wilbert Carlson MD 299 [facility] [address] [place] [address] Other cirrhosis of liver (CMS/HCC) (Primary Dx); 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); Cirrhosis of liver with ascites, unspecified hepatic cirrhosis type (CMS/HCC); Hereditary hemochromatosis (CMS/HCC); Umbilical hernia without obstruction and without gangrene Social History Tobacco Use Types Packs/Day Years [...] - Inhaled Oxygen Concentration - - Weight 80.3 kg (177 lb) 11/02/2024 12:55 PM EST Height 182.9 cm (6') 11/02/2024 12:55 PM EST Body Mass Index 24.01 11/02/2024 12:55 PM EST documented in this encounter Functional Status [...] 10/29/2024 10:40 AM John Worthington RN documented as of this encounter Mental Status * Because of a physical, mental, or emotional condition, do you have serious difficulty concentrating, remembering, or making decisions? 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 Review of Systems Constitutional: Negative. Respiratory: Negative. Negative for shortness of breath. Cardiovascular: Negative. Negative for chest pain. Gastrointestinal: Positive for nausea. Umbilical hernia Genitourinary: Negative. Negative for difficulty urinating. Skin: Negative for color change. Psychiatric/Behavioral: Negative for agitation and confusion. PROBLEM LIST: Patient Active Problem List Diagnosis ??? Hemochromatosis ??? 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 Cirrhosis of liver without ascites (CMS/HCC) ??? HTN (hypertension) ??? Hyperlipidemia ??? Gastroesophageal reflux disease without esophagitis ??? BPH (benign prostatic hyperplasia) ??? Adenomatous polyp of colon ??? Cirrhosis of liver with ascites (CMS/HCC) ??? Hypokalemia ??? Hypomagnesemia PAST MEDICAL HISTORY: Past Medical History: Diagnosis Date ??? Arthritis ??? GERD (gastroesophageal reflux disease) ??? Hemochromatosis ??? Hypertension ??? Liver disease PAST SURGICAL HISTORY: Past Surgical History: Procedure Laterality Date ??? COLONOSCOPY 10/2019 TA x2, tics througout, rectal varies (3-5 yr) ??? ESOPHAGOGASTRODUODENOSCOPY 06/202424 grade 1 varices, portal HTN gastropathy (1 yr) ??? ESOPHAGOGASTRODUODENOSCOPY 06/202323 grade 1 varices ( 1 yr) ??? ESOPHAGOGASTRODUODENOSCOPY 12/202223 Grade 2 varices, banded, defalted, mild portal HTNgastropathy ??? ESOPHAGOGASTRODUODENOSCOPY 05/202222 Grade 2 varices, banded, eradicated, portal HTN gastropathy ??? ESOPHAGOGASTRODUODENOSCOPY 10/2019 2 cords of varices in lower third 1- 2+, portal HTN gastropathy findings ??? HIP SURGERY Right replacement ??? KNEE SURGERY Right replacement SOCIAL HISTORY: Social History Tobacco Use ??? Smoking status: Never ??? Smokeless tobacco: Not on file Substance Use Topics ??? Alcohol use: Not Currently FAMILY HISTORY: No family history on file. ACTIVE MEDICATIONS: Current Outpatient Medications Medication Sig Dispense Refill ??? acetaminophen (TYLENOL) 325 mg tablet Take 2 tablets (650 mg total) by mouth every 8 (eight) hours if needed for mild pain or fever - temperature GREATER than 38 C (100.4 F) for up to 7 days. 30 tablet 0 ??? cholecalciferol (VITAMIN D-3) 25 mcg (1,000 unit) tablet Take 1 tablet (1,000 Units total) by mouth 1 (one) time each day. ??? furosemide (LASIX) 20 mg tablet Take 1 tablet (20 mg total) by mouth 1 (one) time each day in the morning. 30 each 0 ??? nadoloL (CORGARD) 40 mg tablet Take 1 tablet (40 mg total) by mouth 1 (one) time each day. ??? omeprazole (PriLOSEC) [address] capsule Take 1 capsule (20 mg total) by mouth 1 (one) time each day. Do not crush or chew. 90 each 0 ??? spironolactone (ALDACTONE) 50 mg tablet Take 1 tablet (50 mg total) by mouth 1 (one) time each day in the morning. 30 each 0 ??? tamsulosin (FLOMAX) 0.4 mg 24 hr capsule Take 1 capsule (0.4 mg total) by mouth 1 (one) time each day. ??? trospium 60 mg capsule,extended release 24hr Take 1 capsule (60 mg total) by mouth 1 (one) timeeach day. ??? atorvastatin (LIPITOR) 20 mg tablet Take 1 tablet (20 mg total) by mouth 1 (one) time each day.(Patient not taking: Reported on 11/02/2024) No current facility-administered medications for this visit. ALLERGIES: Allergies Allergen Reactions ??? Chlorpromazine Palpitations Fast heart rate Physical Exam Constitutional: Appearance: Normal appearance. HENT: Head: Normocephalic. Cardiovascular: Rate and Rhythm: Normal rate and regular rhythm. Pulmonary: Effort: Pulmonary effort is normal. Breath sounds: Normal breath sounds. Abdominal: General: Bowel sounds are normal. There is distension. Palpations: Abdomen is soft. There is no mass. Tenderness: There is no abdominal tenderness. There is no guarding or rebound. Hernia: A hernia is present. Comments: Non-tender, Medium sized reducible umbilical hernia. Some fluid still present. Musculoskeletal: Right lower leg: No edema. Left lower leg: No edema. Skin: General: Skin is warm. Neurological: Mental Status: He is alert and oriented to person, place, and time. Psychiatric: Mood and Affect: Mood normal. Behavior: Behavior normal. IMPRESSION: No diagnosis found. Cirrhosis. He currently is not drinking, and is getting periodic phlebotomies. There was a questionabout transplant. His current labs I am not certain he meets the MELD criteria and I am also not certain would be a candidate at 73. Lets see what his new liver tests look like and then we can discuss this further. Screening for hepatoma his last ultrasound was in May I did it and alpha- fetoprotein to his labs. Probably at the next visit he should have a repeat ultrasound. Varices would continue all annual upper endoscopies. Of note is that he is on nadolol. 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 Ascites he certainly felt much better after his paracentesis. I did ask him to double up on his medication i.e. to take 2 Aldactone and 2 furosemide a day and put him down for repeat labs in about 10days just to make sure his kidney function and potassium are okay. We did discuss low-salt diet. General measures. We did discuss adequate protein in the diet as well as exercise. They asked me about his low platelet count, and low albumin rate unfortunately these go hand in glove with his cirrhosis and portal hypertension again nutritional supplementation may help with the albumin. Umbilical hernia. He does have a rather large hernia but is entirely reducible. They asked about surgery and I shared that there is no right answer. He is at high risk given his elements of cirrhosisascites etc. an appointment has been made to discuss this with surgery and get Dr. Fraser's input Assessment/Plan Assessment & Plan Other cirrhosis of liver (CMS/HCC) Orders: ??? Ambulatory referral to General Surgery; Future ??? 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 Wilbert Carlson MD 1:02 PM EST documented in this encounter Plan of Treatment Upcoming Encounters Date Type Department Care Team (Late st Contact Info) Description 01/14/2025 8:00 AM EDT Office Visit Gastroenterology - [address] [place] [address] Wilbert Carlson MD [address] [place] [address] Scheduled Orders Name Type Priority Associated Diagnoses Orde r Schedule Comprehensive metabolic panel Lab Routine Other cirrhosis of liver (CMS/HCC) Expected: 11/16/2024, Expires: 05/02/2025 Scheduled Referrals Name Type Priority Associated Diagnoses Order Schedule Ambulatory referral to General Surgery Outpatient Referral Routine Other cirrhosis of liver (CMS/HCC) Expected: 01/30/2025, Expires: 11/02/2025 documented as of this encounter Visit Diagnoses Diagnosis Cirrhosis of liver with ascites, unspecified hepatic cirrhosis type (CMS/HCC) 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
--- OUTSIDE RECORDS SUMMARY | 2024-11-04 15:07 | XMS_ITS | Encounter Summary ---
Author Organization [facility] Address [address] [place] [address] Care Team Providers Care Tool And Die Maker Apprentice Name Role Phone Lou Jolley MD Primary Care Provider [phone] Reason for Referral * Hospital - Outpatient (Routine) - Closed Specialty Diagnoses / Procedures Referred By Contac t Referred To Contact Gastroenterology Diagnoses Nausea and vomiting, unspecified vomiting type History of colon polyps Hx of esophageal varices Procedures COLONOSCOPY Anesthesia - MAC; [facility] ENDOSCOPY Wilbert Carlson MD [address] [address] Phone: tel: fax: [facility] Endoscopy [address] [place] [address] Phone: tel: Referral ID Status Reason Start Date Expiration Date Visits Re quested Visits Authorized [id number] Closed 10/05/2024 10/05/2025 1 1 * Hospital - Outpatient (Routine) - Closed Specialty Diagnoses / Procedures Referred By Contac t Referred To Contact Gastroenterology Diagnoses Nausea and vomiting, unspecified vomiting type History of colon polyps Hx of esophageal varices Procedures EGD Anesthesia - MAC; [facility] ENDOSCOPY Wilbert Carlson MD [address] [address] Phone: tel: fax: [facility] Endoscopy [address] [place] [address] Phone: tel: Referral ID Status Reason Start Date Expiration Date Visits Re quested Visits Authorized [id number] Closed 10/05/2024 10/05/2025 1 1 Reason for Visit * Hospital - Outpatient (Routine) - Closed Specialty Diagnoses / Procedures Referred By Contac t Referred To Contact Gastroenterology Diagnoses Nausea and vomiting, unspecified vomiting type History of colon polyps Hx of esophageal varices Procedures COLONOSCOPY Anesthesia - MAC; [facility] ENDOSCOPY Wilbert Carlson MD [address] [address] Phone: tel: fax: [facility] Endoscopy [address] [place] [address] Phone: tel: Referral ID Status Reason Start Date Expiration Date Visits Re quested Visits Authorized [id number] Closed 10/05/2024 10/05/2025 1 1 Encounter Details Date Type Department Care Team (Latest Contact Info) Description 10/19/2024 9:49 AM EST - 10/19/2024 11:59 PM EST Hospital Encounter [facility] Endoscopy [address] [place] [phone] Wilbert Carlson MD [address] [address] Boby Villalba, [address] [address] Nausea and vomiting, unspecified vomiting type; History [...] Care Everywhere. * EGD (Upper Endoscopy): Post-op (Bolivian) * Colon Polyps (Bolivian) * Diverticulosis (Bolivian) documented in this encounter Medications at Time [...] 1 (one) time each day. 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 Narrative 10/19/2024 11:24 AM EST [facility] GI Patient Name: Ryder Thornton Procedure [...] Procedure Code(s): ? --- Professional --- ? 58242, Colonoscopy, flexible; with removal of ? tumor(s), polyp(s), or other lesion(s) by snare ? technique ? 31849, 59, Colonoscopy, flexible; with biopsy, single ? [...] or abscess without bleeding CPT copyright 202 [employer]. All rights reserved. The codes documented in this report are preliminary and upon risk management director review may be revised to meet current compliance requirements. MD Wilbert Kern MD 10/19/2024 11:24:22 AM This report has been signed electronically.Wilbert Carlson MD Number of Addenda: 0 Note Initiated On: 10/19/2024 10:58 AM Scope In: Scope Out: ? Endoscopy Department at [facility] - [address] [place] [address], ? [place] [address] Procedure Note Wilbert Carlson MD - 10/19/2024 [facility] GI Patient Name: Ryder Thornton Procedure [...] left colon. Procedure Code(s): --- Professional --- 99236, Colonoscopy, flexible; with removal of tumor(s), polyp(s), or other lesion(s) by snare technique 86518, 59, Colonoscopy, flexible; with biopsy,single or multiple Diagnosis Code(s): --- Professional --- Z86.010, Personal history of colonic polyps D12.3, Benign neoplasm of transverse colon (hepatic flexure or splenic flexure) D12.0, Benign neoplasm of cecum K63.89, Other specified diseases of intestine K57.30, Diverticulosis of large intestine without perforation or abscess without bleeding CPT copyright 2020 [employer]. All rights reserved. The codes documented in this report are preliminary and upon risk management director reviewmay be revised to meet current compliance requirements. MD Wilbert Kern MD 10/19/2024 11:24:22 AM This report has been signed electronically.Wilbert Carlson MD Number of Addenda: 0 Note Initiated On: 10/19/2024 10:58 AM Scope In: Scope Out: Endoscopy Department at [facility] - [address] [place] [phone] IMPRESSION: - One 5 mm polyp in [...] R esult * EGD Anesthesia - MAC; [facility] ENDOSCOPY (10/19/2024 11:20 AM EST) Anatomical Region [...] year for surveillance. Narrative 10/19/2024 11:22 AM [facility] GI Patient Name: Ryder Thornton Procedure [...] Procedure Code(s): ? --- Professional --- ? 67506, Esophagogastroduodenoscopy, flexible, ? transoral; diagnostic, including collection of ? specimen(s) by brushing or washing, when performed ? (separate procedure) Diagnosis Code(s): ? --- Professional --- ? I85.00, Esophageal varices without bleeding ? K76.6, Portal hypertension ? K31.89, Other diseases of stomach and duodenum CPT copyright 2020 [employer]. All rights reserved. The codes documented in this report are preliminary and upon risk management director review may be revised to meet current compliance requirements. MD Wilbert Kern MD 10/19/2024 11:22:02 AM This report has been signed electronically.Wilbert Carlson MD Number of Addenda: 0 Note Initiated On: 10/19/2024 11:15 AM Scope In: Scope Out: ? Endoscopy Department at [facility] - [address] [place] [address], ? [place] [address] Procedure Note Wilbert Carlson MD - 10/19/2024 [facility] GI Patient Name: Ryder Thornton Procedure [...] without abnormality. Procedure Code(s): --- Professional --- 67658, Esophagogastroduodenoscopy, flexible, transoral; diagnostic, including collection of specimen(s) by brushing or washing, when performed (separate procedure) Diagnosis Code(s): --- Professional --- I85.00, Esophageal varices without bleeding K76.6, Portal hypertension K31.89, Other diseases of stomach and duodenum CPT copyright 2020 [employer]. All rights reserved. The codes documented in this report are preliminary and upon risk management director reviewmay be revised to meet current compliance requirements. MD Wilbert Kern MD 10/19/2024 11:22:02 AM This report has been signed electronically.Wilbert Carlson MD Number of Addenda: 0 Note Initiated On: 10/19/2024 11:15 AM Scope In: Scope Out: Endoscopy Department at [facility] - [address] [place] [phone] IMPRESSION: - Grade I esophageal varices. - [...] gross or histologic evaluation. 10/20/2024 12:54 PM [facility] Gross Description A. Large Intestine, [...] not survive processing. MAILE 10/20/2024 12:54 PM [facility] Disclaimer Unless otherwise specified, all tissue is 10% NB formalin fixed and paraffin embedded. 10/20/2024 12:54 PM [facility] Tissue Cecum structure / Unknown 10/19/2024 11:07 AM EST 10/19/2024 12:33 PM EST Tissue specimen (specimen) Transverse colon structure / Unknown 10/19/2024 11:09 AM EST 10/19/2024 12:33 PM EST Wilbert Carlson MD LAB PATHOLOGY ORDERABLES Final Result [facility] ([facility] [address] [place] [address], documented in this encounter Visit Diagnoses Diagnosis Nausea and vomiting, unspecified vomiting type History of colon polyps Hx of esophageal varices documented in this encounter Orders Discharge Count Last Ordered Date First Orde red Date DISCHARGE PATIENT 1 10/19/2024 documented in this encounter Care Teams Tool And Die Maker Apprentice Relationship Specialty Start Date End Date Lou Jolley MD [address] [facility] [address] [place] [address] PCP - General Internal Medicine 09/24/24 documented as of this encounter
--- OUTSIDE RECORDS SUMMARY | 2024-11-04 15:07 | XMS_ITS | Clinical Summary ---
Author Organization [facility] [address] [facility] Address [address] [place] [address] Phone Care Team Providers Care Photographic Equipment Mechanic Name Role Phone Lou Jolley MD Primary Care Provider [phone] Allergies Active Allergy Reactions Criticality Noted Date Comments Chlorpromazine Palpitations Medium 03/27/2021 Fast heart rate Medications trospium 60 mg capsule,extende d release 24hr Take 1 capsule (60 mg total) by mouth 1 (one) time each day. 08/02/20 24 Active tamsulosin (FLOMAX) 0.4 mg 24 hr capsule Take 1 capsule (0.4 mg total) by mouth 1 (one) time each day. 08/18/20 24 Active nadoloL (CORGARD) 40 mg tablet Take 1 tablet (40 mg total) by mouth 1 (one) time each day. 07/27/20 24 Active atorvastatin (LIPITOR) 20 mg tablet Take 1 tablet (20 mg total) by mouth 1 (one) time each day. 03/30/20 24 Active cholecalciferol (VITAMIN D-3) 25 mcg (1,000 unit) tablet Take 1 tablet (1,000 Units total) by mouth 1 (one) time each day. Active omeprazole (PriLOSEC) [address] capsuleIndicati ons:Gastroesoph ageal reflux disease without esophagitis Take 1 capsule (20 mg total) by mouth 1 (one) time each day. Do not crush or chew. 90 each 10/23/19 25 025 Active acetaminophen (TYLENOL) 325 mg tablet Take 2 tablets (650 mg total) by mouth every 8 (eight) hours if needed for mild pain or fever - temperature GREATER than 38 C (100.4 F) for up to 7 days. 30 tablet 10/30/19 25 Active spironolactone (ALDACTONE) 50 mg tablet Take 1 tablet (50 mg total) by mouth 1 (one) time each day in the morning. 30 each 10/30/19 25 Active furosemide (LASIX) 20 mg tablet Take 1 tablet (20 mg total) by mouth 1 (one) time each day in the morning. 30 each 10/30/19 25 025 Active omeprazole (PriLOSEC) [address] capsule 09/24/19 25 Discontinu ed(Reorder ) meloxicam (MOBIC) 7.5 mg tablet Take 1 tablet (7.5 mg total) by mouth 1 (one) time each day. 09/15/20 24 Discontinu ed(Stop Taking at Discharge) amLODIPine (NORVASC) 2.5 mg tablet Take 1 tablet (2.5 mg total) by mouth 1 (one) time each day. 09/05/20 24 025 Discontinu ed(Stop Taking at Discharge) polyethylene glycol (COLYTE) 240-22.72-6.72 -5.84 gram solutionIndicat ions:Nausea and vomiting, unspecified vomiting type,History of colon polyps,Hx of esophageal varices Take 4,000 mL by mouth 1 (one) time for 1 dose. 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 Assessment & Plan (11/02/2024 1:29 PM EST): Esophageal varices in cirrhosis 09/28/2024 Overview (09/28/2024): S/p banding Assessment & Plan (11/02/2024 1:29 PM EST): Cirrhosis of liver without ascites 09/28/2024 HTN (hypertension) 09/28/2024 Hyperlipidemia 09/28/2024 Gastroesophageal reflux disease without esophagi tis 09/28/2024 BPH (benign prostatic hyperplasia) 09/28/2024 Adenomatous polyp of colon 09/28/2024 Encounters Date Type Department Care Team Description 11/02/2024 1:15 PM EST Office Visit Gastroenterology - [address] [phone] Wilbert Carlson MD Other cirrhosis of liver (CMS/HCC) (Primary Dx); 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); Cirrhosis of liver with ascites, unspecified hepatic cirrhosis type (CMS/HCC); Hereditary hemochromatosis (CMS/HCC); Umbilical hernia without obstruction and without gangrene 10/29/2024 10:12 AM EST - 10/30/2024 4:35 PM EST Emergency [facility] Urology Unit [address] [place] [phone] Jordan Miller MD Flores, Carlos M, MD Santoyo-Pacheco, Omar D, MD Abdominal distension (Primary Dx); Other ascites Discharge Disposition: Home or Self Care 10/28/2024 2:40 PM EST - 10/28/2024 5:29 PM EST Emergency [facility] Emergency [address] [place] [phone] Discharge Disposition: Home or Self Care 10/19/2024 10:58 AM EST Anesthesia Event [facility] Endoscopy [address] [place] [phone] French Sheffield MD 10/19/2024 9:49 AM EST - 10/19/2024 11:59 PM EST Hospital Encounter [facility] Endoscopy [address] [place] [phone] Wilbert Carlson MD Hayes, Brett L, YOLETTE Nausea and vomiting, unspecified vomiting type; History of colon polyps; Hx of esophageal varices Discharge Disposition: Home or Self Care 10/12/2024 Telephone Gastroenterology - [address] [place] [address] Katie Baker PA 10/05/2024 Telephone Gastroenterology - [address] [place] [phone] Wilbert Carlson MD 10/05/2024 Telephone Gastroenterology - [address] [place] [phone] Katie Baker PA 09/28/2024 2:20 PM EST Office Visit Gastroenterology - [address] [place] [phone] Katie Baker PA Umbilical hernia without [...] EST Inhaled Oxygen Concentration - - Weight 80.3 kg (177 lb) 11/02/2024 12:55 PM EST Height 182.9 cm (6') 11/02/2024 12:55 PM EST Body Mass Index 24.01 11/02/2024 12:55 PM EST Plan of Treatment Upcoming Encounters Date Type Department Care Team (Late st Contact Info) Description 01/14/2025 8:00 AM EDT Office Visit Gastroenterology - [address] [facility] [address] [place] [phone] Wilbert Carlson MD [address] [address] Health Maintenance Due Date Last Done Comments [...] (2 - Td or Tdap) 09/17/2024 09/17/2014 Falls Risk Assessment 10/30/2025 10/30/2024 Hypertension/CHF/CAD Annual BMP Blood Test 10/30/2025 10/30/2024, 10/29/2024, 10/12/2024 Colorectal Cancer Screening: Colonoscopy 10/19/2034 10/19/2024 Zoster [...] this topic Medical Devices Implanted Type Area Shaping Machine Operator Device Identifier Shelf Expiration Date Model / Serial / Lot Replacememnt Right: Hip Replacement Right: Knee Procedures Procedure Name Priority Date/Time Associated Diagnosis Comments ECG ANNOTATED 10/31/2024 PLATELET COUNT Routine 10/30/2024 1:03 PM EST LT BLUE - NA CITRATE Routine 10/30/2024 1:00 PM EST EXTRA TUBES Routine 10/30/2024 1:00 PM EST CBC WITH AUTO DIFFERENTIAL Routine 10/30/2024 7:03 AM EST CBC AND DIFFERENTIAL Routine 10/30/2024 7:03 AM EST MAGNESIUM Routine 10/30/2024 7:03 AM EST BASIC METABOLIC PANEL Routine 10/30/2024 7:03 AM EST XR CHEST 2 VIEWS STAT 10/29/2024 2:35 PM EST DIFFERENTIAL BODY FLUID STAT 10/29/2024 2:33 PM EST PROTEIN, BODY FLUID STAT 10/29/2024 2:33 PM EST PH, BODY FLUID STAT 10/29/2024 2:33 PM EST LACTATE DEHYDROGENASE, BODY FLUID STAT 10/29/2024 2:33 PM EST GLUCOSE, BODY FLUID STAT 10/29/2024 2:33 PM EST CELL COUNT WITH REFLEX DIFFERENTIAL, BODY FLUID STAT 10/29/2024 2:33 PM EST CULTURE BODY FLUID WITH GRAM STAIN STAT 10/29/2024 2:33 PM EST US PARACENTESIS W IMAGE GUIDANCE STAT 10/29/2024 2:30 PM EST Procedure Note - Jerod Rudolph MD / Priscilla Garzon PA - 10/29/2024 2:30 PM ESTThis [...] Signed By: Signed Date: ET Workstation ID: [id number] Transcribed By: Self Edit Transcribed Date: 10/29/2024 15:52 ET Resident/PA/PACK PRESS OPERATOR: Priscilla Garzon B-TYPE NATRIURETIC PEPTIDE STAT 10/29/2024 1:21 PM EST ACTIVATED PARTIAL THROMBOPLASTIN TIME STAT 10/29/2024 1:21 PM EST PROTHROMBIN TIME WITH INR STAT 10/29/2024 1:[address] ABDOMEN PELVIS W CONTRAST STAT 10/29/2024 11:50 AM EST CBC WITH AUTO DIFFERENTIAL STAT 10/29/2024 8:42 AM EST LIPASE STAT 10/29/2024 8:42 AM EST COMPREHENSIVE METABOLIC PANEL STAT 10/29/2024 8:42 AM EST CBC AND DIFFERENTIAL STAT 10/29/2024 8:42 AM EST ECG 12-LEAD STAT 10/29/2024 7:06 AM EST COLONOSCOPY Routine 10/19/2024 11:20 AM EST Nausea [...] cirrhosis of liver (CMS/HCC) Hereditary hemochromatosis (CMS/HCC) from Last 3 Months Results * ECG-Annotated (10/31/2024) us Provider Onbase ECG ORDERABLES Final Result * Platelet count (10/30/2024 1:03 PM EST) Pathologist [facility] Platelets 110 K/mcL 10/30/2024 2:00 PM EST [facility] MPV 9.5 FL 10/30/2024 2:00 PM EST [facility] Blood Venous blood specimen / Unknown Venipuncture / Unknown 10/30/2024 1:03 PM EST 10/30/2024 1:29 PM EST Narrative [facility] - 10/30/2024 2:00 PM EST Platelet count performed on citrated blue top tube. us Raman Guajardo MD LAB BLOOD ORDERABLES F inal Result [facility] [address] [place] [address], [place] [phone] * Light blue tube (10/30/2024 1:00 PM EST) Extra Tube Hold for add-ons. 10/30/2024 3:02 PM EST [facility] Comment:Auto resulted. Blood Venous blood specimen / Unknown 10/30/2024 1:00 PM EST 10/30/2024 1:29 PM EST us Raman Guajardo MD LAB BLOOD ORDERABLES F inal Result [facility] [address] [place] [address], [place] [phone] * (ABNORMAL) CBC auto differential (10/30/2024 7:03 AM EST) Only the most recent of3 resultswithin the time period is included. WBC 4.1(L) 4.8 - 10.8 K/mcL LAB HEMETOLOGY METHOD 10/30/2024 8:31 AM [facility] RBC 4.10(L) 4.50 - 5.50 M/mcL LAB HEMETOLOGY METHOD 10/30/2024 8:31 AM [facility] Hemoglobin 12.4(L) 13.5 - 17.5 g/dL LAB HEMETOLOGY METHOD 10/30/2024 8:31 AM [facility] Hematocrit 38.0(L) 42.0 - 54.0 % LAB HEMETOLOGY METHOD 10/30/2024 8:31 AM [facility] MCV 93.6 79.0 - 98.0 FL LAB HEMETOLOGY METHOD 10/30/2024 8:31 AM [facility] MCH 30.5 27.0 - 32.0 pcg LAB HEMETOLOGY METHOD 10/30/2024 8:31 AM [facility] MCHC 32.6 32.0 - 37.0 g/dL LAB HEMETOLOGY METHOD 10/30/2024 8:31 AM [facility] RDW 13.3 11.0 - 15.0 % LAB HEMETOLOGY METHOD 10/30/2024 8:31 AM [facility] Platelets 10/30/2024 8:31 AM [facility] Comment:Not measured. Unable to quantitate due to platelet clumping MPV 11.6(H) 7.0 - 11.0 FL LAB HEMETOLOGY METHOD 10/30/2024 8:31 AM [facility] NRBC 0.0 <1.0 % LAB HEMETOLOGY METHOD 10/30/2024 8:31 AM [facility] NRBC Absolute 0.00 <0.10 K/mcL LAB HEMETOLOGY METHOD 10/30/2024 8:31 AM [facility] Neutrophils Relative 61.1 % LAB HEMETOLOGY METHOD 10/30/2024 8:31 AM [facility] Lymphocytes Relative 28.4 % LAB HEMETOLOGY METHOD 10/30/2024 8:31 AM [facility] Monocytes Relative 8.1 % LAB HEMETOLOGY METHOD 10/30/2024 8:31 AM [facility] Eosinophils Relative 1.2 % LAB HEMETOLOGY METHOD 10/30/2024 8:31 AM [facility] Basophils Relative 0.7 % LAB HEMETOLOGY METHOD 10/30/2024 8:31 AM [facility] Immature Granulocytes Relative 0.5 % LAB HEMETOLOGY METHOD 10/30/2024 8:31 AM [facility] Neutrophils Absolute 2.50 1.50 - 7.00 K/mcL LAB HEMETOLOGY METHOD 10/30/2024 8:31 AM [facility] Lymphocytes Absolute 1.16 1.00 - 5.00 K/mcL LAB HEMETOLOGY METHOD 10/30/2024 8:31 AM [facility] Monocytes Absolute 0.33 0.20 - 1.00 K/mcL LAB HEMETOLOGY METHOD 10/30/2024 8:31 AM EST [facility] Eosinophils Absolute 0.05 0.00 - 0.50 K/[facility] LAB HEMETOLOGY METHOD 10/30/2024 8:31 AM EST [facility] Basophils Absolute 0.03 0.00 - 0.20 K/[facility] LAB HEMETOLOGY METHOD 10/30/2024 8:31 AM EST [facility] Immature Granulocytes Absolute 0.02 0.00 - 0.03 K/[facility] LAB HEMETOLOGY METHOD 10/30/2024 8:31 AM EST [facility] Blood Venous blood specimen / Unknown Venipuncture / Unknown 10/30/2024 7:03 AM EST 10/30/2024 7:34 AM EST us Nicholas Davis MD LAB BLOOD ORDERABLES Final Re sult Performing Organization Address [facility]/ZIP Co de Phone Number [facility] [address] [place] [address], [place] [phone] * (ABNORMAL) Magnesium (10/30/2024 7:03 AM EST) Pathologist [facility] Magnesium 1.8(L) 1.9 - 2.6 mg/dL LAB CHEMISTRY METHOD 10/30/2024 8:07 AM EST [facility] Blood Venous blood specimen / Unknown Venipuncture / Unknown 10/30/2024 7:03 AM EST 10/30/2024 7:32 AM EST us Nicholas Davis MD LAB BLOOD ORDERABLES Final Re sult [facility] [address] [place] [address], [place] [phone] * (ABNORMAL) Basic metabolic panel (10/30/2024 7:03 AM EST) Sodium 139 133 - 145 mmol/L LAB CHEMISTRY METHOD 10/30/2024 8:07 AM [facility] Potassium 3.4(L) 3.5 - 5.5 mmol/L LAB CHEMISTRY METHOD 10/30/2024 8:07 AM [facility] Chloride 107 96 - 110 mmol/L LAB CHEMISTRY METHOD 10/30/2024 8:07 AM [facility] CO2 28 21 - 32 mmol/L LAB CHEMISTRY METHOD 10/30/2024 8:07 AM [facility] Anion Gap 4 3 - 11 LAB CHEMISTRY METHOD 10/30/2024 8:07 AM [facility] Glucose 94 70 - 100 mg/dL LAB CHEMISTRY METHOD 10/30/2024 8:07 AM [facility] BUN 10 5 - 25 mg/dL LAB CHEMISTRY METHOD 10/30/2024 8:07 AM [facility] Creatinine 0.69(L) 0.70 - 1.30 mg/dL LAB CHEMISTRY METHOD 10/30/2024 8:07 AM [facility] eGFR 99 >=60 mL/min/1. 73m2 LAB CHEMISTRY METHOD 10/30/2024 8:07 AM [facility] Comment:Calculation based on the??Chronic Kidney Disease Epidemiology Collaboration (CKD-EPI) equation refit??without adjustment for race. BUN/Creatinine Ratio 14.5 LAB CHEMISTRY METHOD 10/30/2024 8:07 AM [facility] Calcium 8.8 8.5 - 10.5 mg/dL LAB CHEMISTRY METHOD 10/30/2024 8:07 AM [facility] Blood Venous blood specimen / Unknown Venipuncture / Unknown 10/30/2024 7:03 AM EST 10/30/2024 7:32 AM EST us Nicholas Davis MD LAB BLOOD ORDERABLES Final Re sult [facility] [address] [place] [address], [place] [phone] * XR Chest 2 Views (10/29/2024 2:35 [...] Date: 10/29/2024 14:43 ET Assigned Physician: Sushma Calljeas Reviewed and Electronically Signed By: Sushma Callejas Signed Date: 10/29/2024 14:44 ET Workstation ID: [id number] Transcribed By: Self Edit Transcribed Date: 10/29/2024 [...] Signed Date: 10/29/2024 14:44 ET Workstation ID: [id number] Transcribed By: Self Edit Transcribed Date: 10/29/2024 14:43 ET us Jordan Miller MD IMG XR PROCEDURES Final Result * Cell count with reflex differential, body fluid (10/29/2024 2:33 PM EST) Body Fluid Total Nucleated Cells 230 /mm3 LAB HEMETOLOGY METHOD 10/29/2024 5:30 PM EST [facility] Body Fluid RBC <1,000 /mm3 LAB HEMETOLOGY METHOD 10/29/2024 5:30 PM EST [facility] Comment:Corrected result: Pr eviously reported as 0 /mm3 on 10/29/2024 at 1727 EST. Body Fluid Color Straw 10/29/2024 5:30 PM EST [facility] Body Fluid Clarity Hazy 10/29/2024 5:30 PM EST [facility] Body Fluid Source Peritoneal 10/29/2024 5:30 PM EST [facility] Peritoneal Fluid Non-blood Collection / Unknown 10/29/2024 2:33 PM EST 10/29/2024 2:45 PM EST Narrative [facility] - 10/29/2024 5:30 PM EST No reference ranges have been established for body fluids. Clinical correlation recommended. us Jordan Miller MD LAB BODY FLUIDS AND STOOLS CAREY NICHOLS Edited Result - Final [facility] [address] [place] [address], [place] [phone] * Culture body fluid with gram stain (10/29/2024 2:33 PM EST) Fluid Culture No growth at 3 days LAB MICROBIOLOGY METHOD 11/01/2024 11:07 AM EST [facility] Gram Stain Result No polymorphonuclear leukocytes, No epithelial cells, and No organisms noted 11/01/2024 11:07 AM EST [facility] Ascites (Abdomen) 10/29/2024 2:33 PM EST 10/29/2024 2:45 PM EST us Jordan Miller MD LAB MICROBIOLOGY - GENERAL CAREY NICHOLS Final Result Performing Organization Address [facility]/ZIP Co de Phone Number [facility] [address] [place] [address], [place] [phone] * Differential body fluid (10/29/2024 2:33 PM EST) Fluid Neutrophils % 6 % 10/29/2024 5:27 PM EST [facility] Fluid Lymphocytes % 50 % 10/29/2024 5:27 PM EST [facility] Fluid Monocytes/Macrop hages 44 % 10/29/2024 5:27 PM EST [facility] Fluid Eosinophils % 0 % 10/29/2024 5:27 PM EST [facility] Fluid Basophils % 0 % 10/29/2024 5:27 PM EST [facility] Fluid Other Cells % 0 % 10/29/2024 5:27 PM EST [facility] Peritoneal Fluid Non-blood Collection / Unknown 10/29/2024 2:33 PM EST 10/29/2024 2:45 PM EST [facility] - 10/29/2024 5:27 PM EST No reference ranges have been established for body fluids. Clinical correlation recommended. Jordan Lisandra Miller MD LAB BODY FLUIDS AND STOOLS CAREY NICHOLS Final Result Performing Organization Address [facility]/ZIP Co de Phone Number [facility] [address] [place] [address], [place] [phone] * Protein, body fluid (10/29/2024 2:33 PM EST) Protein, Fluid 1.4 See Comment g/dL LAB CHEMISTRY METHOD 10/29/2024 3:22 PM EST [facility] Ascites 10/29/2024 2:33 PM EST 10/29/2024 2:45 PM EST [facility] - 10/29/2024 3:22 PM EST No reference ranges have been established for body fluids. Clinical correlation recommended. Jordan Miller MD LAB BODY FLUIDS AND STOOLS ORDE RABLES Final Result Performing Organization Address [facility] Co de Phone Number [facility] [address] [place] [address], [place] [phone] * Lactate dehydrogenase, body fluid (10/29/2024 2:33 PM EST) LD, Fluid 50 See Comment unit/L LAB CHEMISTRY METHOD 10/29/2024 3:22 PM EST [facility] Ascites Peritoneal cavity structure / Unknown 10/29/2024 2:33 PM EST 10/29/2024 2:45 PM EST [facility] - 10/29/2024 3:22 PM EST No reference ranges have been established for body fluids. Clinical correlation recommended. Jordan Miller MD LAB BODY FLUIDS AND STOOLS ORDE RABLES Final Result Performing Organization Address [facility] de Phone Number [facility] [address] [place] [address], [place] [phone] * Glucose, body fluid (10/29/2024 2:33 PM EST) Glucose, Fluid 112 See Comment mg/dL LAB CHEMISTRY METHOD 10/29/2024 3:22 PM EST [facility] Ascites 10/29/2024 2:33 PM EST 10/29/2024 2:45 PM EST [facility] - 10/29/2024 3:22 PM EST No reference ranges have been established for body fluids. Clinical correlation recommended. Jordan Miller MD LAB BODY FLUIDS AND STOOLS ORDE RABLES Final Result Performing Organization Address [facility]/ZIP Co de Phone Number [facility] [address] [place] [address], [place] [phone] * pH, body fluid (10/29/2024 2:33 PM EST) pH, Fluid 8.5 See Comment pH 10/29/2024 3:51 PM EST [facility] Peritoneal Fluid Non-blood Collection / Unknown 10/29/2024 2:33 PM EST 10/29/2024 2:45 PM EST Narrative [facility] - 10/29/2024 3:51 PM EST No reference ranges have been established for body fluids. Clinical correlation recommended. us Jordan Miller MD LAB BODY FLUIDS AND STOOLS CAREY NICHOLS Final Result Performing Organization Address [facility]/ZIP Co de Phone Number [facility] [address] [place] [address], [place] [phone] * APTT (10/29/2024 1:21 PM EST) aPTT 32.7 24.1 - 39.3 sec LAB COAGULATION METHOD 10/29/2024 2:16 PM EST [facility] Blood Venous blood specimen / Unknown Venipuncture / Unknown 10/29/2024 1:21 PM EST 10/29/2024 1:52 PM EST us Jordan Miller MD LAB BLOOD ORDERABLES Final Resu lt Performing Organization Address City/[facility]/ZIP Co de Phone Number [facility] [address] [place] [address], [place] [phone] * (ABNORMAL) Prothrombin time with INR (10/29/2024 1:21 PM EST) Only the most recent of2 resultswithin the time period is included. Protime 14.4(H) 10.6 - 13.9 sec LAB COAGULATION METHOD 10/29/2024 2:16 PM EST [facility] INR 1.2 LAB COAGULATION METHOD 10/29/2024 2:16 PM EST [facility] Blood Venous blood specimen / Unknown Venipuncture / Unknown 10/29/2024 1:21 PM EST 10/29/2024 1:52 PM EST us Jordan Miller MD LAB BLOOD ORDERABLES Final Resu lt Performing Organization Address City/[facility]/ZIP Co de Phone Number [facility] [address] [place] [address], [place] [phone] * (ABNORMAL) B-type natriuretic peptide (10/29/2024 1:21 PM EST) BNP 193(H) <=100 pcg/mL LAB CHEMISTRY METHOD 10/29/2024 2:30 PM EST [facility] Blood Venous blood specimen / Unknown Venipuncture / Unknown 10/29/2024 1:21 PM EST 10/29/2024 1:52 PM EST us Jordan Miller MD LAB BLOOD ORDERABLES Final Resu lt Performing Organization Address [facility]/ZIP Co de Phone Number [facility] [address] [place] [address], [place] [phone] * CT Abdomen Pelvis w Contrast (10/29/2024 [...] Signed Date: 10/29/2024 12:30 ET Workstation ID: [id number] Transcribed By: Self Edit Transcribed Date: 10/29/2024 [...] Signed Date: 10/29/2024 12:30 ET Workstation ID: [id number] Transcribed By: Self Edit Transcribed Date: 10/29/2024 12:18 ET Jordan Lisandra Miller MD [facility] CT PROCEDURES Final Result * Lipase (10/29/2024 8:42 AM EST) Only the most recent of2 resultswithin the time period is included. Lipase 31 13 - 75 unit/L LAB CHEMISTRY METHOD 10/29/2024 9:25 AM EST [facility] Blood Venous blood specimen / Unknown Venipuncture / Unknown 10/29/2024 8:42 AM EST 10/29/2024 8:53 AM EST us Jordan Miller MD LAB BLOOD ORDERABLES Final Resu lt [facility] [address] [place] [address], * (ABNORMAL) Comprehensive metabolic panel (10/29/2024 8:42 AM EST) Only the most recent of2 resultswithin the time period is included. Sodium 141 133 - 145 mmol/L LAB CHEMISTRY METHOD 10/29/2024 9:50 AM [facility] Potassium 4.3 3.5 - 5.5 mmol/L LAB CHEMISTRY METHOD 10/29/2024 9:50 AM [facility] Chloride 108 96 - 110 mmol/L LAB CHEMISTRY METHOD 10/29/2024 9:50 AM [facility] CO2 30 21 - 32 mmol/L LAB CHEMISTRY METHOD 10/29/2024 9:50 AM [facility] Anion Gap 3 3 - 11 LAB CHEMISTRY METHOD 10/29/2024 9:50 AM [facility] Glucose 121(H) 70 - 100 mg/dL LAB CHEMISTRY METHOD 10/29/2024 9:50 AM [facility] BUN 14 5 - 25 mg/dL LAB CHEMISTRY METHOD 10/29/2024 9:50 AM [facility] Creatinine 0.74 0.70 - 1.30 mg/dL LAB CHEMISTRY METHOD 10/29/2024 9:50 AM [facility] eGFR 97 >=60 mL/min/1. 73m2 LAB CHEMISTRY METHOD 10/29/2024 9:50 AM [facility] Comment:Calculation based on the??Chronic Kidney Disease Epidemiology Collaboration (CKD-EPI) equation refit??without adjustment for race. BUN/Creatinine Ratio 18.9 LAB CHEMISTRY METHOD 10/29/2024 9:50 AM [facility] Calcium 8.9 8.5 - 10.5 mg/dL LAB CHEMISTRY METHOD 10/29/2024 9:50 AM [facility] AST (SGOT) 35 10 - 42 unit/L LAB CHEMISTRY METHOD 10/29/2024 9:50 AM [facility] ALT (SGPT) 23 10 - 60 unit/L LAB CHEMISTRY METHOD 10/29/2024 9:50 AM [facility] Alkaline Phosphatase 126(H) 42 - 121 unit/L LAB CHEMISTRY METHOD 10/29/2024 9:50 AM EST [facility] Total Protein 7.4 6.0 - 8.0 g/dL LAB CHEMISTRY METHOD 10/29/2024 9:50 AM [facility] Albumin 2.9(L) 3.2 - 5.0 g/dL LAB CHEMISTRY METHOD 10/29/2024 9:50 AM [facility] Total Bilirubin 1.0 0.0 - 1.4 mg/dL LAB CHEMISTRY METHOD 10/29/2024 9:50 AM EST [facility] Blood Venous blood specimen / Unknown Venipuncture / Unknown 10/29/2024 8:42 AM EST 10/29/2024 8:53 AM EST us Jordan Lisandra Miller MD LAB BLOOD ORDERABLES Final Resu lt [facility] [address] [place] [address], * ECG 12 lead (10/29/2024 7:06 AM EST) Ventricular Rate ECG 63 BPM GEMUSE Atrial Rate 63 BPM GEMUSE P-R Interval 146 ms GEMUSE QRS Duration 88 ms GEMUSE Q-T Interval 452 ms GEMUSE QTc 462 ms GEMUSE P Wave [place] 64 degrees GEMUSE R [place] 5 degrees GEMUSE T [place] 18 degrees GEMUSE ECG Interpretation Normal sinus rhythm Low voltage QRS Borderline ECG No previous ECGs available Confirmed by YAMINI FRANKLIN ([id number]) on 11/01/2024 8:44:08 AM GEMUSE 10/29/2024 7:06 AM EST 11/01/2024 8:44 AM EST us Jordan Miller MD ECG ORDERABLES Final Result GEMUSE * COLONOSCOPY Anesthesia - MAC; [facility] ENDOSCOPY (10/19/2024 11:20 AM EST) Anatomical [...] pathology results. Narrative 10/19/2024 11:24 AM EST [facility] Patient Name: Ryder Thornton Procedure [...] Procedure Code(s): ? --- Professional --- ? 62852, Colonoscopy, flexible; with removal of ? tumor(s), polyp(s), or other lesion(s) by snare ? technique ? 26080, 59, Colonoscopy, flexible; with biopsy, single ? [...] or abscess without bleeding CPT copyright 2020 [employer]. All rights reserved. The codes documented in this report are preliminary and upon medical educator review may be revised to meet current compliance requirements. MD Wilbert Kren MD 10/19/2024 11:24:22 AM This report has been signed electronically.Wilbert Carlson MD Number of Addenda: 0 Note Initiated On: 10/19/2024 10:58 AM Scope In: Scope Out: ? Endoscopy Department at [facility] - [address] [place] [address], ? [place] [phone] Procedure Note Wilbert Carlson MD - 10/19/2024 [facility] GI Patient Name: Ryder Thornton Procedure [...] left colon. Procedure Code(s): --- Professional --- 73712, Colonoscopy, flexible; with removal of tumor(s), polyp(s), or other lesion(s) by snare technique 59644, 59, Colonoscopy, flexible; with biopsy,single or multiple Diagnosis Code(s): --- Professional --- Z86.010, Personal history of colonic polyps D12.3, Benign neoplasm of transverse colon (hepatic flexure or splenic flexure) D12.0, Benign neoplasm of cecum K63.89, Other specified diseases of intestine K57.30, Diverticulosis of large intestine without perforation or abscess without bleeding CPT copyright 2020 [employer]. All rights reserved. The codes documented in this report are preliminary and upon medical educator reviewmay be revised to meet current compliance requirements. MD Wilbert Kern MD 10/19/2024 11:24:22 AM This report has been signed electronically.Wilbert Carlson MD Number of Addenda: 0 Note Initiated On: 10/19/2024 10:58 AM Scope In: Scope Out: Endoscopy Department at [facility] - [address] [place] [phone] IMPRESSION: - One 5 mm polyp in [...] R esult * EGD Anesthesia - MAC; [facility] ENDOSCOPY (10/19/2024 11:20 AM EST) Anatomical [...] for surveillance. Narrative 10/19/2024 11:22 AM EST [facility] GI Patient Name: Ryder Thornton Procedure [...] Procedure Code(s): ? --- Professional --- ? 78610, Esophagogastroduodenoscopy, flexible, ? transoral; diagnostic, including collection of ? specimen(s) by brushing or washing, when performed ? (separate procedure) Diagnosis Code(s): ? --- Professional --- ? I85.00, Esophageal varices without bleeding ? K76.6, Portal hypertension ? K31.89, Other diseases of stomach and duodenum CPT copyright 202 [employer]. All rights reserved. The codes documented in this report are preliminary and upon medical educator review may be revised to meet current compliance requirements. MD Wilbert Kern MD 10/19/2024 11:22:02 AM This report has been signed electronically.Wilbert Carlson MD Number of Addenda: 0 Note Initiated On: 10/19/2024 11:15 AM Scope In: Scope Out: ? Endoscopy Department at [facility] - [address] [place] [address], ? [place] [phone] Procedure Note Wilbert Carlson MD - 10/19/2024 [facility] GI Patient Name: Ryder Thornton Procedure [...] without abnormality. Procedure Code(s): --- Professional --- 98939, Esophagogastroduodenoscopy, flexible, transoral; diagnostic, including collection of specimen(s) by brushing or washing, when performed (separate procedure) Diagnosis Code(s): --- Professional --- I85.00, Esophageal varices without bleeding K76.6, Portal hypertension K31.89, Other diseases of stomach and duodenum CPT copyright 2020 [employer]. All rights reserved. The codes documented in this report are preliminary and upon medical educator reviewmay be revised to meet current compliance requirements. MD Wilbert Kern MD 10/19/2024 11:22:02 AM This report has been signed electronically.Wilbert Carlson MD Number of Addenda: 0 Note Initiated On: 10/19/2024 11:15 AM Scope In: Scope Out: Endoscopy Department at [facility] - [address] [place] [phone] IMPRESSION: - Grade I esophageal varices. - [...] gross or histologic evaluation. 10/20/2024 12:54 PM EST [facility] Gross Description A. Large [...] not survive processing. MAILE 10/20/2024 12:54 PM EST [facility] Disclaimer Unless otherwise specified, all tissue is 10% NB formalin fixed and paraffin embedded. 10/20/2024 12:54 PM EST [facility] Tissue Cecum structure / Unknown 10/19/2024 11:07 AM EST 10/19/2024 12:33 PM EST Tissue specimen (specimen) Transverse colon structure / Unknown 10/19/2024 11:09 AM EST 10/19/2024 12:33 PM EST Wilbert Carlson MD LAB PATHOLOGY ORDERABLES Final Result [facility] [address] [place] [address], [place] [phone] * Bilirubin duplicate procedure to order (10/12/2024 11:16 AM EST) Total Bilirubin 0.8 0.0 - 1.4 mg/dL LAB CHEMISTRY METHOD 10/12/2024 3:47 PM [facility] Bilirubin, Direct 0.2 0.0 - 0.3 mg/dL LAB CHEMISTRY METHOD 10/12/2024 3:47 PM EST [facility] Bilirubin, Indirect 0.6 0.0 - 1.1 mg/dL LAB CHEMISTRY METHOD 10/12/2024 3:47 PM [facility] Blood Venous blood specimen / Unknown Venipuncture / Unknown 10/12/2024 11:16 AM EST 10/12/2024 12:50 PM EST Katie JAY LAB BLOOD ORDERABLES Final R esult [facility] [address] [place] [address], [place] [phone] * (ABNORMAL) Iron and TIBC (10/12/2024 11:16 AM EST) Iron 81 50 - 160 mcg/dL LAB CHEMISTRY METHOD 10/12/2024 3:47 PM EST [facility] TIBC 209(L) 250 - 450 mcg/dL LAB CHEMISTRY METHOD 10/12/2024 3:47 PM EST [facility] Iron Saturation 39 20 - 50 % LAB CHEMISTRY METHOD 10/12/2024 3:47 PM EST [facility] Blood Venous blood specimen / Unknown Venipuncture / Unknown 10/12/2024 11:16 AM EST 10/12/2024 12:50 PM EST Katie JAY LAB BLOOD ORDERABLES Final R esult [facility] [address] [place] [address], [place] [phone] * Thyroid stimulating immunoglobulin (10/12/2024 11:16 AM EST) Thyroid Stimulating Immunoglobulin <0.10 <0.10 IU/L 10/15/2024 3:22 PM EST [facility] Comment: Thyroid stimulating immunoglobulins (TSI) concentrations greater than or equal to (>=) 0.55 IU/L have a clinical sensitivity of at least 98.6%, and a clinical specificity of at least 98.5%, for the differential diagnosis of Graves' Disease. TSI concentrations for patients with other thyroid or autoimmune diseases range from 0.11 to 0.39 IU/L. Test performed at [facility], [address] , [place], [place] ??[address] ? [phone] Carolynn Mckeon MD, PhD - Driver Courier Blood Venous blood specimen / Unknown Venipuncture / Unknown 10/12/2024 11:16 AM EST 10/12/2024 12:50 PM EST Katie JAY LAB BLOOD ORDERABLES Final R esult [facility] [address] [place] [address] * Alpha fetoprotein tumor marker (10/12/2024 11:16 AM EST) AFP <2.5 0.0 - 8.0 ng/mL LAB CHEMISTRY METHOD 10/12/2024 3:56 PM EST [facility] Blood Venous blood specimen / Unknown Venipuncture / Unknown 10/12/2024 11:16 AM EST 10/12/2024 12:50 PM EST Narrative [facility] - 10/12/2024 3:56 PM EST The Siemens Advia Centaur Chemiluminescent Immunoassay is used. Results obtained with different assay methods or kits cannot be used interchangeably. Results cannot be interpreted as absolute evidence of the presence or absence of malignant disease. Katie JAY LAB BLOOD ORDERABLES Final R esult Performing Organization Address City/[facility]/ZIP Co de Phone Number [facility] [address] [place] [address], [place] [phone] * Amylase (10/12/2024 11:16 AM EST) Pathologist [facility] Amylase 31 25 - 115 unit/L LAB CHEMISTRY METHOD 10/12/2024 3:47 PM EST [facility] Blood Venous blood specimen / Unknown Venipuncture / Unknown 10/12/2024 11:16 AM EST 10/12/2024 12:50 PM EST Katie JAY LAB BLOOD ORDERABLES Final R esult [facility] [address] [place] [address], [place] [phone] from Last 3 Months Insurance [employer] - [place] MEDICARE ADVANTAGE Advance Directives * Full Code - Default (Latest Code Status on File) Date Activated Date Inactivated Comments 10/29/2024 3:00 PM 10/30/2024 6:41 PM This is orde r is used when code status has not been discussed with the patient, or code status is otherwise unknown/unconfirmed To update the patient's code status, place a code status order. Do not modify or discontinue any currently active code status orders. Care Teams Photographic Equipment Mechanic Relationship Specialty Start Date End Date Lou Jolley MD [address] [place] [address] PCP - General Internal Medicine 09/24/24
== END 2024-11-04 15:02 | disposition home or self-care (01) ==
LOC: HO.BBR 15:01
PROVIDERS: PCP Internal Medicine; Visit Provider Internal Medicine Gastroenterology
DX: Z13.89 Encounter for screening for other disorder (principal)